=== PATIENT | female | born 1940 | race Caucasian/White ===

== ENCOUNTER 2020-01-04 16:22 | Inpatient (IN) | payer MEDICARE, SELFPAY ==
--- NOTE | ~2020-01-04 | XR_ITS ---
XR chest 1V portable 01/04/2020 17:17 Indication: Weakness, fever and fatigue Procedure: AP portable chest Comparison: 01/08/2016 Findings: Borderline heart size. No focal air space disease, pulmonary edema, pleural effusion or sukhdev pected pneumothorax. No acute osseous abnormality. There is atherosclerosis. Impression: 1: No acute cardiopulmonary disease. Reviewed, dictated and finalized at location A. Impression: 1: No acute cardiopulmonary disease.
--- NOTE | ~2020-01-04 | CT_ITS ---
EXAMINATION: CT abdomen pelvis w con DATE: 01/04/2020 18:16 INDICATION: Left lower quadrant pain, fever and fatigue TECHNIQUE: Computed tomography (CT) of the abdomen and pelvis was performed with 100 cc Omnipaque 350 intravenous contrast. The dose-length product was 531.98 mGy-cm. Automated exposure control and iter ative reconstruction technique were employed. COMPARISON: None. FINDINGS: Left lower lobe atelectasis/scarring. Cardiomegaly. Small left pleural effusion. Small hiat al hernia. There is atherosclerosis of the aorta. No evidence for aneurysm. Gallbladder is not identified. There is prominence of the bile ducts likely attributable to patient a ge and cholecystectomy. The spleen, pancreas, adrenal glands are unremarkable. There is a 2.1 cm righ t renal cyst. There are multiple hypovascular areas in the left kidney, most likely pyelonephritis ve rsus renal cell carcinoma. There is mild urothelial enhancement of the left renal pelvis. There is a 1.6 cm left periaortic lymph node in the upper abdomen. Colonic diverticulosis without evidence for diverticulitis. No bowel obstruction. No free air or free fluid. There is a probable bone marrow donor site left ilium. There is spinal fusion at L2-L5. IMPRESSION: 1. Multiple hypovascular areas in the left kidney, most likely pyelonephritis versus renal cell carci noma. There is mild urothelial enhancement of the left renal pelvis. Clinically correlate. Recommend follow-up CT in 3-4 weeks following appropriate therapy or further evaluation with MRI. 2: Mild upper abdominal lymphadenopathy, likely reactive. 3: Small left pleural effusion. Reviewed, dictated and finalized at location A. IMPRESSION: 1. Multiple hypovascular areas in the left kidney, most likely pyelonephritis v ersus renal cell carcinoma. There is mild urothelial enhancement of the left re nal pelvis. Clinically correlate. Recommend follow-up CT in 3-4 weeks following appropriate therapy or further evaluation with MRI. 2: Mild upper abdominal lymphadenopathy, likely reactive. 3: Small left pleural effusion.
[2020-01-04 16:20] VITALS: BP 166/69; PULSE 94; RESP 20; TEMP 38.3; O2SAT 97
--- NOTE | 2020-01-04 16:42 | PC.NURSE ---
In and out cath preformed. Maintained sterile field. Pt tolerated procedure well. No complications observed or reported.
--- NOTE | 2020-01-04 16:44 | ECG_ITS ---
Measurements Intervals [place] Rate: 87 P: 32 DE: 203 QRS: 16 QRSD: 106 T: 26 QT: 351 QTc: 422 Interpretive Statements SINUS RHYTHM POSSIBLE LEFT ATRIAL ENLARGEMENT BASELINE ARTIFACT- I, III, AVL BORDERLINE ECG Electronically Signed On 01-04-2020 19:38:24 CDT by Dieter Balderas D.O.
--- NOTE | 2020-01-04 16:46 | ED.FEVER ---
HPI - Fever General Chief Complaint: Fever Stated Complaint: Fever, Fatigue Time Seen by Provider: 01/04/20 16:29 Source: patient and family Mode of arrival: ambulatory Limitations: no limitations History of Present Illness HPI Narrative: 79 yo female who presents from home for evaluation of fever for 3 days. Patient states she has had dysuria and lower abdominal pain x 3-4 days . She was started on Cipro by her PCP but she has continued to have fever for 3 days. She has associated nausea, weakness, and anorexia. She also reports left lower abdominal pain radiating into her back. She reports her back pain is not as severe but she has progressive weakness. She denies uri symptoms or cough. Her has told staff patient had a cough. She denies any exposures or sick contacts. MD elicited complaint: fever and weakness Related Data Home Medications Medication Instructions Recorded Confirmed cholecalciferol (vitamin D3) 50 2,000 unit PO DAILY 09/10/19 01/04/20 mcg (2,000 unit) tablet potassium gluconate 595 mg (99 mg) 595 mg PO DAILY 09/10/19 01/04/20 tablet diltiazem HCl [Cardizem LA] 120 mg PO DAILY 01/04/20 01/04/20 docusate sodium [Stool Softener] 300 mg PO HS 01/04/20 01/04/20 famotidine 40 mg PO DAILY 01/04/20 01/04/20 furosemide 20 mg PO DAILY PRN 01/04/20 01/04/20 hydrocodone-acetaminophen 1 tablet PO Q6H PRN 01/04/20 01/04/20 Allergies Allergy/AdvReac Type Severity Reaction Status Date / Time Penicillins Allergy Intermediate Hives Verified 01/04/20 16:28 Sulfa (Sulfonamide Allergy Intermediate Other Verified 01/04/20 16:28 Antibiotics) Review of Systems Review of Systems: All systems reviewed & are unremarkable except as noted in HPI and below Constitutional: Constitutional: Reports fatigue and Reports fever(s) ENT: Denies nasal congestion and Denies sore throat Cardiovascular: Cardiovascular: Denies chest pain Respiratory: Respiratory: Denies chest congestion, Denies cough and Denies dyspnea Gastrointestinal: Gastrointestinal: Reports abdominal pain, Reports nausea and Denies vomiting Genitourinary: Genitourinary: Reports nocturia, Reports dysuria and Reports flank pain Musculoskeletal: Musculoskeletal: Reports back pain (chronic) [facility], [facility] Past Medical History Medical History (Updated 01/05/20 @ 00:55 by Shira Medina MD) Chronic back pain Diverticulitis Essential hypertension IFG (impaired fasting glucose) RLS (restless legs syndrome) Surgical History Surgical History (Updated 01/04/20 @ 23:08 by Lily Cheney NP) H/O foot surgery bilat H/O lateral meniscus repair of right knee H/O rectal polypectomy several H/O: hysterectomy History of back surgery titanium screws in her back in 2001 and 2003 History of bladder suspension procedure Hx of appendectomy Hx of cholecystectomy Total knee replacement status left Family History Family History Mother Hypertension Cerebrovascular accident Family history of diabetes mellitus in first degree relative Father Hypertension Family history of diabetes mellitus in first degree relative Family history of congestive heart failure Sibling Hypertension Asthma Family history of diabetes mellitus in first degree relative Social History Social History (Updated 01/04/20 @ 23:10 by Lily Cheney NP) Social History: she is she lives with her who is the durable power printer assistant for healthcare. The patient desires to be a full code. 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 She is a lifelong nonsmoker. No alcohol or illicit drugs. Smoking status: Never smoker Second hand tobacco smoke exposure: No Alcohol intake: current Drinks per week: 1 Substance use: never Substance use type: does not use Living arrangements: with family Occupation/Education: retired Gender identity (if verbalized by the patient):
[2020-01-04] MEDS: SODIUM CHLORIDE 0.9% IV 1,000 ML 999 ML IV CONT (16:55)
[2020-01-04] MEDS: ONDANSETRON INJ 4 MG/2 ML VIAL IV PUSH ×2 (17:03→22:00)
[2020-01-04 17:12] LABS: Basophils Percent Auto 0.3 % (0.2-1.2); Hematocrit 38.1 % (37.0-47.0); Hemoglobin 12.5 g/dL (12.0-15.0); Immature Granulocyte Absolute 0.04 K/mm3 (0.00-0.031); Immature Granulocyte Percent A 0.4 % (0-0.5); Lymphocytes Absolute Auto 0.27 K/mm3 (0.9-3.2); Lymphocytes Percent Auto 2.9 % (18.3-44.2); Mean Corpuscular HGB Conc 32.8 g/dl (32-36); Mean Corpuscular Hemoglobin 32.6 pg (26-34); Mean Corpuscular Volume 99.2 fl (80-100); Mean Platelet Volume 8.8 fl (7.4-10.4); Monocytes Absolute Auto 0.4 K/mm3 (0.1-0.6); Monocytes Percent Auto 4.6 % (2.6-8.5); Neutrophils Absolute Auto 8.5 K/mm3 (1.3-6.7); Neutrophils Percent Auto 91.8 % (45.5-73.1); Platelet Count Result 155 k/mm3 (150-375); Red Blood Count 3.84 M/mm3 (4.2-5.4); Red Cell Distribution Width 13.1 % (11.5-14.5); White Blood Count 9.3 K/mm3 (4.5-10.0)
[2020-01-04 17:16] LABS: Add Urine Microscopic? YES; Appearance Urine Cloudy (Clear); Bacteria Urine 4+ /hpf; Bilirubin Urine Negative (Negative); Blood Urine 1+ (Negative); Color Urine Amber (Yellow); Glucose Urine UA Negative (Negative); Ketones Urine 1+ mg/dL (Negative); Leukocyte Esterase Ur 2+ LEU/UL (Negative); Mucus Urine Rare /lpf; Nitrate Urine Positive (Negative); Protein Urine 2+ mg/dL (Negative); Specific Grav Ur 1.025 (1.001-1.035); Squamous Epithelial Cell Urine Occasional /hpf (Few); WBC Clumps Urine Present /HPF; WBC Urine >75 /hpf
[2020-01-04 17:20] VITALS: BP 153/56; PULSE 84; RESP 18; O2SAT 97
[2020-01-04 17:23] LABS: INR 1.3; Prothrombin Time 15.6 Seconds (11.1-14.7)
[2020-01-04 17:24] VITALS: TEMP 37.3
[2020-01-04 17:24] LABS: Partial Thromboplastin Time 33.2 SECONDS (22.3-36.8)
[2020-01-04 17:30] LABS: Alanine Aminotransferase 33 U/L (4-35); Albumin Level 3.5 g/dL (3.5-5.1); Alkaline Phosphatase 109 U/L (38-126); Aspartate Amino Transferase 45 U/L (14-36); Blood Urea Nitrogen 20 mg/dL (7-17); Calcium 7.9 mg/dL (8.4-10.2); Carbon Dioxide 27 mmol/L (22-30); Chloride 101 mmol/L (98-107); Estimated Glomerular Filt Rate > 60; Glucose 115 mg/dL (65-105); Potassium 3.9 mmol/L (3.4-5.0); Sodium 135 mmol/L (137-145)
[2020-01-04 17:53] LABS: CRP 32.4 mg/dL (<1.0)
[2020-01-04 18:59] VITALS: BP 136/67; PULSE 84; RESP 18; O2SAT 96
[2020-01-04 19:57] VITALS: BP 147/93; PULSE 100; RESP 20; TEMP 36.7; O2SAT 96
[2020-01-04 20:21] VITALS: BMI 29.6
[2020-01-04 20:26] VITALS: BP 154/89; PULSE 99; RESP 20; TEMP 37.4; O2SAT 94
[2020-01-04] MEDS: LACTATED RINGERS 1,000 ML 125 ML IV CONT (20:27)
--- NOTE | 2020-01-04 21:38 | ADMGEN ---
This patient, Shania Walden, was admitted to Medical Room 346-01. Patient/family oriented to hospital policies and general routines including ID bracelet, bed and alarms, visiting hours, pain management, procedures, bathroom and other care routines, personal items, smoking policy, room service/diet, and visiting hours. Valuables list has been completed. Information on how to activate the Rapid Response Team has been discussed. Patient/Family are encouraged to report perceived risks to care and to ask questions if they do not understand what they are told or what they should do.
--- NOTE | 2020-01-04 22:27 | PM.IMHP ---
H&P: HPI History of Present Illness Chief complaint: Acute yelonephritis Narrative: Shania Walden is a 79 year old female Who came to the emergency due to fever chills body aches nausea vomiting for at least 3 days now. The patient tried [place] 0 for the urinary burning in a did not help her. Patient was started on Cipro by her PCP and she still continued to have fevers. She has not been outside the house or been exposed to covid 19. She has been staying at home and isolating herself. The patient stated that at 1st her temperature was 99.9? and that it was 100 today. She said that her has been monitoring her fever. She does have body aches and was nauseated. She feels miserable. She has had no cough. Her fever was 101 here. Her influenza was negative. Review of Systems Review of Systems: All systems reviewed & are unremarkable except as noted in HPI and below Constitutional: Constitutional: Reports as per HPI and Reports no additional constitutional complaints Eyes: Eyes: Reports as per HPI and Reports no additional eye complaints ENT: Reports system reviewed and no additional complaints, except as documented and Reports Normal hearing present Cardiovascular: Cardiovascular: Reports no additional cardiovascular complaints Respiratory: Respiratory: Reports no additional respiratory complaints and Reports no additional respiratory complaints Gastrointestinal: Gastrointestinal: Reports as per HPI and Reports no additional gastrointestinal complaints Musculoskeletal: Musculoskeletal: Reports no additional musculoskeletal complaints Integumentary/Breasts: Skin/Breast: Reports system reviewed and no additional complaints, except as docu and Reports as per HPI Neurologic: Reports system reviewed and no additional complaints, except as documented, Reports as per HPI and Reports Normal hearing present Psychiatric: Psychiatric: Reports no additional psychiatric complaints and Reports as per HPI Endocrine: Endocrine: Reports no additional endocrine complaints Hematologic/Lymphatic: Hematologic/Lymphatic: Reports no additional hematologic/lymphatic complaints Allergic/Immunologic: Allergic/Immunologic: Reports no additional allergic/immunologic complaints [facility] Past Medical History Medical History (Updated 01/04/20 @ 23:15 by Lily Cheney NP) Chronic back pain Diverticulitis Essential hypertension IFG (impaired fasting glucose) RLS (restless legs syndrome) Surgical History Surgical History (Updated 01/04/20 @ 23:08 by Lily Cheney NP) H/O foot surgery bilat H/O lateral meniscus repair of right knee H/O rectal polypectomy several H/O: hysterectomy History of back surgery titanium screws in her back in 2001 and 2003 History of bladder suspension procedure Hx of appendectomy Hx of cholecystectomy Total knee replacement status left Family History Family History Mother Hypertension Cerebrovascular accident Family history of diabetes mellitus in first degree relative Father Hypertension Family history of diabetes mellitus in first degree relative Family history of congestive heart failure Sibling Hypertension Asthma Family history of diabetes mellitus in first degree relative Social History Social History (Updated 01/04/20 @ 23:10 by Lily Cheney NP) Social History: she is she lives with her who is the durable power privacy attorney for healthcare. The patient desires to be a full code. 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 She is a lifelong nonsmoker. No alcohol or illicit drugs. Smoking status: Never smoker Second hand tobacco smoke exposure: No Alcohol intake: current Drinks per week: 1 Substance use: never Substance use type: does not use Living arrangements: with family Occupation/Education: retired Gender identity (if verbalized by the patient): Female Spiritual care con
[2020-01-04] MEDS: DOCUSATE SODIUM 100 MG CAPSULE 300 MG PO (23:24)
[2020-01-05] MEDS: ONDANSETRON INJ 4 MG/2 ML VIAL IV PUSH ×3 (03:26→20:20)
[2020-01-05] MEDS: LACTATED RINGERS 1,000 ML 125 ML IV CONT ×2 (04:53→12:33)
[2020-01-05 05:15] LABS: Basophils Percent Auto 0.3 % (0.2-1.2); Eosinophils Percent Auto 0.5 % (0-4.4); Hematocrit 33.7 % (37.0-47.0); Hemoglobin 10.8 g/dL (12.0-15.0); Immature Granulocyte Absolute 0.04 K/mm3 (0.00-0.031); Immature Granulocyte Percent A 0.6 % (0-0.5); Lymphocytes Absolute Auto 0.31 K/mm3 (0.9-3.2); Lymphocytes Percent Auto 4.8 % (18.3-44.2); Mean Corpuscular Hemoglobin 32.4 pg (26-34); Mean Corpuscular Volume 101.2 fl (80-100); Mean Platelet Volume 9.1 fl (7.4-10.4); Monocytes Absolute Auto 0.6 K/mm3 (0.1-0.6); Monocytes Percent Auto 8.5 % (2.6-8.5); Neutrophils Absolute Auto 5.6 K/mm3 (1.3-6.7); Neutrophils Percent Auto 85.3 % (45.5-73.1); Platelet Count Result 139 k/mm3 (150-375); Red Blood Count 3.33 M/mm3 (4.2-5.4); Red Cell Distribution Width 13.2 % (11.5-14.5); White Blood Count 6.5 K/mm3 (4.5-10.0)
[2020-01-05 05:23] VITALS: BP 147/58; PULSE 76; RESP 18; TEMP 36.8; O2SAT 100
[2020-01-05 06:03] LABS: Alanine Aminotransferase 57 U/L (4-35); Albumin Level 2.8 g/dL (3.5-5.1); Alkaline Phosphatase 99 U/L (38-126); Aspartate Amino Transferase 79 U/L (14-36); Bilirubin,Total 0.5 mg/dL (0.2-1.3); Blood Urea Nitrogen 23 mg/dL (7-17); Calcium 7.4 mg/dL (8.4-10.2); Carbon Dioxide 25 mmol/L (22-30); Chloride 103 mmol/L (98-107); Estimated CRCL calculation 31 ml/min; Estimated Glomerular Filt Rate 40; Glucose 128 mg/dL (65-105); Potassium 3.5 mmol/L (3.4-5.0); Sodium 135 mmol/L (137-145)
[2020-01-05] MEDS: CHOLECALCIFEROL 1,000 UNIT TABLET 2000 UNITS PO (08:23)
[2020-01-05] MEDS: lisinopriL 20 MG TABLET 40 MG PO (08:24)
[2020-01-05] MEDS: FAMOTIDINE 20 MG TABLET 40 MG PO (08:26)
--- NOTE | 2020-01-05 13:03 | PM.IMPN ---
Progress Note: A&P Assessment and Plan (1) Sepsis: Code(s): A41.9 - Sepsis, unspecified organism Status: Acute Assessment and Plan: The patient met SIRS criteria at admission with tachycardia and fever of 101F. The suspected source is pyelonephritis. Blood cultures reveal gram negative bacilli in the anaerobic bottle of both cultures. Continue IV ceftriaxone, will increase dose to 2g Q24hr due to bacteremia Continue IV fluids - the pt has crackles at the lung bases so I will decrease the rate to 75 cc/hr and monitor volume status closely Await final blood cultures (2) Pyelonephritis: Code(s): N12 - Tubulo-interstitial nephritis, not specified as acute or chronic Status: Acute Assessment and Plan: The pt reports fever, chills, dysuria, and left sided abdominal pain. She has CVA tenderness. UA was consistent with UTI. CT abd/pelvis revealed hypovascular areas in the left kidney and mild urothelial enhancement of the left renal pelvis. Her clinical picture suggests pyelonephritis. Urine culture is pending. Blood cultures reveal gram negative bacilli. Continue IV ceftriaxone Continue antiemetics Continue IV fluids Monitor vitals Trend labs (3) Acute kidney injury: Code(s): N17.9 - Acute kidney failure, unspecified Status: Acute Assessment and Plan: Cr at presentation was 0.9 and BUN 20. Cr today is 1.3 and BUN 23. This may be due to her acute infection. The pt is on lasix 20mg PO PRN. Hold lasix and lisinopril for now Renally dose medications Avoid nephrotoxic agents Continue IV fluids Trend Cr daily (4) RLS (restless legs syndrome): Code(s): G25.81 - Restless legs syndrome Status: Chronic (5) Essential hypertension: Code(s): I10 - Essential (primary) hypertension Status: Chronic Assessment and Plan: Continue cardizem Will hold lisinopril for now due to LALITHA (6) Chronic back pain: Code(s): M54.9 - Dorsalgia, unspecified; G89.29 - Other chronic pain Status: Acute Assessment and Plan: Continue norco (7) DVT prophylaxis: Code(s): Z29.9 - Encounter for prophylactic measures, unspecified Status: Acute Assessment and Plan: Continue SCDs Subjective Date/time seen: 01/05/20 13:03 Interval history: Mrs. Walden is a 79 y.o. female who is seen and examined at bedside in follow-up for pyelonephritis. She reports dysuria, increased urinary frequency which is improving, and left sided abdominal pain. She reports significant nausea. She was only able to eat a few bites of lunch. She denies vomiting today. Her last BM was yesterday. She reports chills this AM. She denies SOB, chest pain, and cough. She denies lightheadedness and dizziness. She reports mild frontal headache. Review of Systems Review of Systems: All systems reviewed & are unremarkable except as noted in HPI and below Exam Narrative: Exam Narrative: General: Well-developed, cooperative, acutely-ill appearing 79 y.o. female who appears her stated age lying in bed in no acute distress. HEENT: Normocephalic and atraumatic. Conjunctivae and lids normal. PERRL. EOMI. Mucous membranes moist. Posterior pharynx normal. Neck: Supple. No lymphadenopathy or masses. Cardiac: Regular rate and rhythm. S1 and S2 normal. Lungs: Normal respiratory effort. No accessory muscle use. Lungs have crackles at the bases. Abdomen: Bowel sounds active. Abdomen is soft and non-distended. Pt has LUQ tenderness. Left CVA tenderness present. Musculoskeletal: Muscle and tone WNL. ROM within normal limits. Extremities: Scant lower extremity edema. Palpable DP and PT bilaterally. Neurological: Alert and oriented x3. No focal neurological deficits noted. Speech is clear. Skin: Warm and dry. No lesions or eruptions. Psychiatric: Judgment and insight intact. Mood and affect normal. Objective Data Vital Signs Vital S
[2020-01-05] MEDS: PROMETHAZINE HCL 6.25 MG TABLET PO ×2 (13:57→20:17)
[2020-01-05 14:00] VITALS: BP 172/64; PULSE 64; RESP 18; TEMP 37; O2SAT 96
[2020-01-05 20:37] VITALS: BP 186/55; PULSE 57; RESP 17; TEMP 36.4; O2SAT 100
[2020-01-05] MEDS: MORPHINE SULFATE 4 MG/ML INJ IV PUSH (22:49)
[2020-01-06] MEDS: PROMETHAZINE HCL 6.25 MG TABLET PO ×4 (00:54→16:08)
[2020-01-06] MEDS: ONDANSETRON INJ 4 MG/2 ML VIAL IV PUSH ×3 (00:54→11:27)
[2020-01-06] MEDS: MORPHINE SULFATE 4 MG/ML INJ IV PUSH ×3 (00:59→06:12)
[2020-01-06] MEDS: LACTATED RINGERS 1,000 ML 75 ML IV CONT (01:04)
[2020-01-06 05:34] VITALS: BP 170/59; PULSE 54; RESP 14; TEMP 36.3; O2SAT 96
[2020-01-06 06:12] LABS: Basophils Percent Auto 0.2 % (0.2-1.2); Eosinophils Absolute Auto 0.1 K/mm3 (0-0.3); Eosinophils Percent Auto 1.2 % (0-4.4); Hematocrit 31.6 % (37.0-47.0); Hemoglobin 10.4 g/dL (12.0-15.0); Immature Granulocyte Absolute 0.01 K/mm3 (0.00-0.031); Immature Granulocyte Percent A 0.2 % (0-0.5); Lymphocytes Absolute Auto 1.17 K/mm3 (0.9-3.2); Lymphocytes Percent Auto 23.3 % (18.3-44.2); Mean Corpuscular HGB Conc 32.9 g/dl (32-36); Mean Corpuscular Hemoglobin 32.6 pg (26-34); Mean Corpuscular Volume 99.1 fl (80-100); Mean Platelet Volume 9.3 fl (7.4-10.4); Monocytes Absolute Auto 0.6 K/mm3 (0.1-0.6); Monocytes Percent Auto 12.5 % (2.6-8.5); Neutrophils Absolute Auto 3.2 K/mm3 (1.3-6.7); Neutrophils Percent Auto 62.6 % (45.5-73.1); Platelet Count Result 145 k/mm3 (150-375); Red Blood Count 3.19 M/mm3 (4.2-5.4); Red Cell Distribution Width 13.1 % (11.5-14.5)
[2020-01-06 06:18] LABS: Alanine Aminotransferase 47 U/L (4-35); Albumin Level 2.6 g/dL (3.5-5.1); Alkaline Phosphatase 90 U/L (38-126); Aspartate Amino Transferase 56 U/L (14-36); Bilirubin,Total 0.3 mg/dL (0.2-1.3); Blood Urea Nitrogen 14 mg/dL (7-17); Calcium 7.5 mg/dL (8.4-10.2); Carbon Dioxide 28 mmol/L (22-30); Chloride 102 mmol/L (98-107); Estimated CRCL calculation 49 ml/min; Estimated Glomerular Filt Rate > 60; Glucose 96 mg/dL (65-105); Potassium 3.3 mmol/L (3.4-5.0); Sodium 134 mmol/L (137-145)
[2020-01-06 06:26] LABS: CRP 20.4 mg/dL (<1.0)
[2020-01-06 08:28] VITALS: PULSE 72; RESP 16; O2SAT 96
[2020-01-06] MEDS: CHOLECALCIFEROL 1,000 UNIT TABLET 2000 UNITS PO (08:28)
[2020-01-06] MEDS: POTASSIUM CHLORIDE 20 MEQ TABLET.ER PO (08:42)
[2020-01-06] MEDS: FAMOTIDINE 20 MG TABLET 40 MG PO (08:49)
--- NOTE | 2020-01-06 12:40 | PM.IMPN ---
Progress Note: A&P Assessment and Plan (1) Bacteremia due to Escherichia coli: Code(s): R78.81 - Bacteremia; B96.20 - Unspecified Escherichia coli [E. coli] as the cause of diseases classified elsewhere Status: Acute Assessment and Plan: Blood cultures reveal E. coli. Susceptibilities are pending for blood cultures. Urine culture reveals E. coli which is susceptible to ceftriaxone. Ceftriaxone was increased to 2g due to bacteremia. Continue IV ceftriaxone which was initiated 01/03. She will need at least 5 days of IV abx therapy and 14 days of abx therapy. Await final blood culture susceptibility Will repeat blood cultures to ensure resolution (2) Sepsis: Qualifiers: Sepsis type: Escherichia coli Code(s): A41.9 - Sepsis, unspecified organism Status: Acute Assessment and Plan: The patient met SIRS criteria at admission with tachycardia and fever of 101F. The pt has complicated pyelonephritis with E. coli bacteremia. The urine culture susceptibility report shows that the E. coli is susceptible to ceftriaxone. Blood culture susceptibility is pending. Continue IV ceftriaxone 2g Q24hr. Ceftriaxone was initiated 01/03 Continue gentle IV fluids Await final blood culture sensitivities and repeat blood cultures (3) Pyelonephritis: Code(s): N12 - Tubulo-interstitial nephritis, not specified as acute or chronic Status: Acute Assessment and Plan: Urine culture revealed E. coli susceptible to ceftriaxone and blood cultures reveal E. coli. The blood culture susceptibilities are pending. Continue IV ceftriaxone Continue antiemetics Continue IV fluids Monitor vitals Trend labs (4) Acute kidney injury: Code(s): N17.9 - Acute kidney failure, unspecified Status: Acute Assessment and Plan: Cr at presentation was 0.9 and BUN 20. Yesterday, Cr increased to 1.3. This was likely due to her acute infection. Cr is trending down today at 0.8. Renally dose medications Avoid nephrotoxic agents Continue gentle IV fluids. Will decrease rate to 60 cc/hr. Discontinue fluids once pt is tolerating PO intake well Trend Cr daily (5) RLS (restless legs syndrome): Code(s): G25.81 - Restless legs syndrome Status: Chronic (6) Essential hypertension: Code(s): I10 - Essential (primary) hypertension Status: Chronic Assessment and Plan: BP was elevated overnight and this AM. Resume lisinopril Continue cardizem Continue to monitor (7) Chronic back pain: Code(s): M54.9 - Dorsalgia, unspecified; G89.29 - Other chronic pain Status: Acute Assessment and Plan: Continue norco (8) DVT prophylaxis: Code(s): Z29.9 - Encounter for prophylactic measures, unspecified Status: Acute Assessment and Plan: Continue SCDs (9) Transaminitis: Code(s): R74.0 - Nonspecific elevation of levels of transaminase and lactic acid dehydrogenase [LDH] Status: Acute Assessment and Plan: AST 45, ALT 33, and ALP 109 at presentation. LFTs increased / and are now trending down. I suspect this is due to her acute infection. Continue IV abx and follow trend. Consider additional workup if transaminitis persists despite abx therapy. (10) Hypokalemia: Code(s): E87.6 - Hypokalemia Status: Acute Assessment and Plan: The pt is on potassium supplementation prior to admission. We do not have potassium gluconate on formulary. Potassium was 3.3 today. Begin potassium chloride 20mEq PO today Continue to monitor Subjective Date/time seen: 01/06/20 12:40 Interval history: Mrs. Walden is a 79 y.o. female who is seen in follow-up for the treatment of pyelonephritis with E. coli bacteremia. She reports that she is feeling much better today. She denies nausea but is still taking antiemetics. She reports that dysuria has almost resolved
[2020-01-06 14:00] VITALS: BP 154/60; PULSE 91; RESP 16; TEMP 36.4; O2SAT 95
[2020-01-06] MEDS: LACTATED RINGERS 1,000 ML 60 ML IV CONT (14:14)
[2020-01-06] MEDS: DOCUSATE SODIUM 100 MG CAPSULE 300 MG PO (20:07)
[2020-01-06 20:10] VITALS: BP 172/60; PULSE 70; RESP 16; TEMP 36.7; O2SAT 96
[2020-01-07 04:01] VITALS: PULSE 60; RESP 16; TEMP 36.5; O2SAT 96
[2020-01-07 04:10] VITALS: BP 212/93
[2020-01-07] MEDS: CALCIUM CARBONATE (TUMS) 500 MG (200 MG ELEMENTAL) PO (04:15)
[2020-01-07] MEDS: PROMETHAZINE HCL 6.25 MG TABLET PO (04:16)
[2020-01-07] MEDS: hydrALAZINE HCL 20 MG/ML VIAL 10 MG IV PUSH (04:22)
[2020-01-07 05:28] VITALS: BP 183/60; PULSE 71
[2020-01-07 05:50] LABS: Basophils Percent Auto 0.3 % (0.2-1.2); Eosinophils Absolute Auto 0.2 K/mm3 (0-0.3); Eosinophils Percent Auto 3.6 % (0-4.4); Hematocrit 34.6 % (37.0-47.0); Hemoglobin 11.6 g/dL (12.0-15.0); Immature Granulocyte Absolute 0.04 K/mm3 (0.00-0.031); Immature Granulocyte Percent A 0.7 % (0-0.5); Lymphocytes Absolute Auto 1.37 K/mm3 (0.9-3.2); Lymphocytes Percent Auto 23.3 % (18.3-44.2); Mean Corpuscular HGB Conc 33.5 g/dl (32-36); Mean Corpuscular Hemoglobin 32.8 pg (26-34); Mean Corpuscular Volume 97.7 fl (80-100); Mean Platelet Volume 8.9 fl (7.4-10.4); Monocytes Absolute Auto 0.8 K/mm3 (0.1-0.6); Monocytes Percent Auto 13.6 % (2.6-8.5); Neutrophils Absolute Auto 3.4 K/mm3 (1.3-6.7); Neutrophils Percent Auto 58.5 % (45.5-73.1); Platelet Count Result 164 k/mm3 (150-375); Red Blood Count 3.54 M/mm3 (4.2-5.4); White Blood Count 5.9 K/mm3 (4.5-10.0)
[2020-01-07 06:07] LABS: Alanine Aminotransferase 53 U/L (4-35); Albumin Level 3.1 g/dL (3.5-5.1); Alkaline Phosphatase 103 U/L (38-126); Aspartate Amino Transferase 61 U/L (14-36); Bilirubin,Total 0.5 mg/dL (0.2-1.3); Blood Urea Nitrogen 13 mg/dL (7-17); Calcium 8.1 mg/dL (8.4-10.2); Carbon Dioxide 31 mmol/L (22-30); Chloride 99 mmol/L (98-107); Estimated CRCL calculation 49 ml/min; Estimated Glomerular Filt Rate > 60; Glucose 116 mg/dL (65-105); Magnesium 1.7 mg/dL (1.6-2.3); Potassium 3.3 mmol/L (3.4-5.0); Sodium 135 mmol/L (137-145)
[2020-01-07 08:00] VITALS: BP 180/55; PULSE 78; RESP 20; TEMP 36.5; O2SAT 98
[2020-01-07] MEDS: LACTATED RINGERS 1,000 ML 60 ML IV CONT (08:17)
[2020-01-07] MEDS: CHOLECALCIFEROL 1,000 UNIT TABLET 2000 UNITS PO (08:18)
[2020-01-07] MEDS: FAMOTIDINE 20 MG TABLET 40 MG PO (08:20)
[2020-01-07] MEDS: POTASSIUM CHLORIDE 20 MEQ TABLET.ER PO (08:20)
[2020-01-07 14:00] VITALS: BP 177/46; PULSE 57; RESP 16; TEMP 36.7; O2SAT 97
--- NOTE | 2020-01-07 14:50 | PM.IMPN ---
Progress Note: A&P Assessment and Plan (1) Bacteremia due to Escherichia coli: Code(s): R78.81 - Bacteremia; B96.20 - Unspecified Escherichia coli [E. coli] as the cause of diseases classified elsewhere Status: Acute Assessment and Plan: Blood cultures reveal E. coli. Susceptibilities are pending for blood cultures. Urine culture reveals E. coli which is susceptible to ceftriaxone. Ceftriaxone was increased to 2g due to bacteremia. WBC wnl at 5.9. Continue IV ceftriaxone which was initiated 01/03. She will need at least 5 days of IV abx therapy and 14 days of total abx therapy. Await final blood culture susceptibility Repeat blood cultures to ensure resolution (2) Sepsis: Qualifiers: Sepsis type: Escherichia coli Sepsis acute organ dysfunction status: without acute organ dysfunction Qualified Code(s): A41.51 - Sepsis due to Escherichia coli [E. coli] Code(s): A41.9 - Sepsis, unspecified organism Status: Acute Assessment and Plan: The patient met SIRS criteria at admission with tachycardia and fever of 101F. The pt has complicated pyelonephritis with E. coli bacteremia. The urine culture susceptibility report shows that the E. coli is susceptible to ceftriaxone. Blood culture susceptibility is pending. Lactic wnl at presentation. Continue IV ceftriaxone 2g Q24hr. Ceftriaxone was initiated 01/03 Discontinue IV fluids as patient is edematous and tolerating oral intake. Will continue to monitor volume status closely. Await final blood culture sensitivities and repeat blood cultures (3) Pyelonephritis: Code(s): N12 - Tubulo-interstitial nephritis, not specified as acute or chronic Status: Acute Assessment and Plan: Urine culture revealed E. coli susceptible to ceftriaxone and blood cultures reveal E. coli. The blood culture susceptibilities are pending. Continue IV ceftriaxone Continue antiemetics Stop IV fluids as patient is tolerating oral intake. Will continue to monitor fluid status Monitor vitals (4) Acute kidney injury: Code(s): N17.9 - Acute kidney failure, unspecified Status: Acute Assessment and Plan: Cr at presentation was 0.9 and BUN 20. On 01/04, Cr increased to 1.3, likely due to her acute infection. Cr is trending down and wnl at 0.8 today. Renally dose medications Avoid nephrotoxic agents Will discontinue IV fluids Trend Cr daily (5) Essential hypertension: Code(s): I10 - Essential (primary) hypertension Status: Chronic Assessment and Plan: BP evaluated today and elevated at 183/60. She has had multiple elevated blood pressures. Continue lisinopril Continue cardizem Consider titrating up or additional antihypertensive agent if BP remain poorly controlled. Continue to monitor (6) Chronic back pain: Qualifiers: Back pain location: low back pain Back pain laterality: unspecified Sciatica presence: unspecified whether sciatica present Qualified Code(s): M54.5 - Low back pain; G89.29 - Other chronic pain Code(s): M54.9 - Dorsalgia, unspecified; G89.29 - Other chronic pain Status: Acute Assessment and Plan: Patient has history of low back pain and back surgery. She sees pain management for back pain. She reports her pain is well controlled presently. Continue norco Discontinue prn morphine (7) Transaminitis: Code(s): R74.0 - Nonspecific elevation of levels of transaminase and lactic acid dehydrogenase [LDH] Status: Acute Assessment and Plan: AST 45, ALT 33, and ALP 109 at presentation. LFTs increased /12 and remain mildly elevated. May be related to acute infection. Total bilirubin is within normal limits Continue IV abx and follow trend. Consider additional workup if transaminitis persists despite abx therapy. (8) Hypokalemia: Code(s): E87.6 - Hypokalemia Status: Acute Assessme
[2020-01-07 17:12] LABS: Lipase 69 U/L (23-300)
[2020-01-07 21:44] VITALS: BP 175/59; PULSE 65; RESP 18; TEMP 36.6; O2SAT 92
[2020-01-07] MEDS: lisinopriL 20 MG TABLET 40 MG PO (22:25)
[2020-01-08 05:14] VITALS: BP 178/62; PULSE 72; RESP 16; TEMP 36.5; O2SAT 97
[2020-01-08 06:02] LABS: Hematocrit 31.9 % (37.0-47.0); Hemoglobin 10.8 g/dL (12.0-15.0); Mean Corpuscular HGB Conc 33.9 g/dl (32-36); Mean Corpuscular Hemoglobin 32.9 pg (26-34); Mean Corpuscular Volume 97.3 fl (80-100); Mean Platelet Volume 9.4 fl (7.4-10.4); Platelet Count Result 183 k/mm3 (150-375); Red Blood Count 3.28 M/mm3 (4.2-5.4); Red Cell Distribution Width 12.9 % (11.5-14.5); White Blood Count 5.9 K/mm3 (4.5-10.0)
[2020-01-08 06:03] LABS: Blood Urea Nitrogen 8 mg/dL (7-17); Carbon Dioxide 34 mmol/L (22-30); Chloride 100 mmol/L (98-107); Estimated CRCL calculation 56 ml/min; Estimated Glomerular Filt Rate > 60; Glucose 102 mg/dL (65-105); Potassium 3.1 mmol/L (3.4-5.0); Sodium 134 mmol/L (137-145)
[2020-01-08] MEDS: CHOLECALCIFEROL 1,000 UNIT TABLET 2000 UNITS PO (08:34)
[2020-01-08 08:35] VITALS: PULSE 76; RESP 16; O2SAT 97
[2020-01-08] MEDS: PROMETHAZINE HCL 6.25 MG TABLET PO (08:35)
[2020-01-08] MEDS: POTASSIUM CHLORIDE 20 MEQ TABLET.ER PO (08:35)
[2020-01-08] MEDS: FAMOTIDINE 20 MG TABLET 40 MG PO (08:41)
[2020-01-08 11:00] VITALS: TEMP 36.5
--- NOTE | 2020-01-08 11:19 | PM.IMPN ---
Progress Note: A&P Assessment and Plan (1) Bacteremia due to Escherichia coli: Code(s): R78.81 - Bacteremia; B96.20 - Unspecified Escherichia coli [E. coli] as the cause of diseases classified elsewhere Status: Acute Assessment and Plan: Blood cultures reveal E. coli with susceptibility to Ceftriaxone. Urine culture also reveals E. coli which is susceptible to ceftriaxone. Ceftriaxone was increased to 2g due to bacteremia on 01/05/20. WBC wnl at 5.9. Repeat blood cultures taken 01/07/20 show NGTD. Continue IV ceftriaxone which was initiated 01/03. She will receive final IV dose of Ceftriaxone tomorrow to complete 5 days of 2 g Ceftriaxone. She will then continue oral antibiotics for a total of 14 days. Her last day of antibiotics will be 01/17/20. (2) Sepsis: Qualifiers: Sepsis acute organ dysfunction status: without acute organ dysfunction Sepsis type: Escherichia coli Qualified Code(s): A41.51 - Sepsis due to Escherichia coli [E. coli] Code(s): A41.9 - Sepsis, unspecified organism Status: Acute Assessment and Plan: The patient met SIRS criteria at admission with tachycardia and fever of 101F. The pt has complicated pyelonephritis with E. coli bacteremia. The urine and blood culture susceptibility report shows that the E. coli is susceptible to ceftriaxone. Lactic wnl at presentation. Repeat blood cultures show NGTD. Continue IV ceftriaxone 2g Q24hr. Stop tomorrow to complete 5 days and transition to oral abx. Await final blood culture report of repeat cultures from 01/06. (3) Pyelonephritis: Code(s): N12 - Tubulo-interstitial nephritis, not specified as acute or chronic Status: Acute Assessment and Plan: Urine culture revealed E. coli susceptible to ceftriaxone and blood cultures reveal E. coli. Pyelonephritis is the cause of bacteremia. Patient does not have CVA tenderness today and no longer has urinary symptoms. Continue IV ceftriaxone. Discontinue tomorrow. Continue antiemetics prn. Continue to monitor vitals (4) Acute kidney injury: Code(s): N17.9 - Acute kidney failure, unspecified Status: Acute Assessment and Plan: Cr at presentation was 0.9 and BUN 20. On 01/04, Cr increased to 1.3, likely due to her acute infection. Cr is trending down and wnl at 0.7 today. Renally dose medications Avoid nephrotoxic agents Trend Cr daily (5) Essential hypertension: Code(s): I10 - Essential (primary) hypertension Status: Chronic Assessment and Plan: BP evaluated today and elevated at 178/62. She has had multiple elevated blood pressure readings with highest 212/93 on 01/06 but appears to be improving. They are still mildly elevated but acceptable. Continue lisinopril Continue cardizem Will not add additional antihypertensive or adjust dosage at this time as BP appears to be improving. Continue to monitor (6) Chronic back pain: Qualifiers: Back pain laterality: unspecified Back pain location: low back pain Sciatica presence: unspecified whether sciatica present Qualified Code(s): M54.5 - Low back pain; G89.29 - Other chronic pain Code(s): M54.9 - Dorsalgia, unspecified; G89.29 - Other chronic pain Status: Acute Assessment and Plan: Patient has history of low back pain and back surgery. She sees pain management for back pain. She reports her pain is well controlled presently. Continue home pain regimen of [place] Continue colace prn given narcotic use (7) Transaminitis: Code(s): R74.0 - Nonspecific elevation of levels of transaminase and lactic acid dehydrogenase [LDH] Status: Acute Assessment and Plan: AST 45, ALT 33, and ALP 109 at presentation. LFTs increased 01/04 and remain mildly elevated. May be related to acute infection. Total bilirubin is within normal limits Continue IV abx and continue to trend LFTs. Consider additional brianne
[2020-01-08] MEDS: lisinopriL 20 MG TABLET 40 MG PO (11:21)
[2020-01-08 14:00] VITALS: BP 145/54; PULSE 67; RESP 16; TEMP 36.8; O2SAT 96
[2020-01-08 15:02] LABS: Potassium 3.4 mmol/L (3.4-5.0)
[2020-01-08 20:00] VITALS: PULSE 66; RESP 20; O2SAT 95
[2020-01-08 22:00] VITALS: BP 171/68; PULSE 66; RESP 20; TEMP 37.1; O2SAT 95
[2020-01-09 05:57] LABS: Basophils Percent Auto 0.4 % (0.2-1.2); Eosinophils Absolute Auto 0.4 K/mm3 (0-0.3); Eosinophils Percent Auto 5.8 % (0-4.4); Hematocrit 30.3 % (37.0-47.0); Hemoglobin 10.2 g/dL (12.0-15.0); Immature Granulocyte Absolute 0.03 K/mm3 (0.00-0.031); Immature Granulocyte Percent A 0.4 % (0-0.5); Lymphocytes Absolute Auto 2.11 K/mm3 (0.9-3.2); Lymphocytes Percent Auto 28.5 % (18.3-44.2); Mean Corpuscular HGB Conc 33.7 g/dl (32-36); Mean Corpuscular Hemoglobin 32.6 pg (26-34); Mean Corpuscular Volume 96.8 fl (80-100); Mean Platelet Volume 8.9 fl (7.4-10.4); Monocytes Absolute Auto 0.7 K/mm3 (0.1-0.6); Monocytes Percent Auto 9.3 % (2.6-8.5); Neutrophils Absolute Auto 4.1 K/mm3 (1.3-6.7); Neutrophils Percent Auto 55.6 % (45.5-73.1); Platelet Count Result 221 k/mm3 (150-375); Red Blood Count 3.13 M/mm3 (4.2-5.4); White Blood Count 7.4 K/mm3 (4.5-10.0)
[2020-01-09 06:00] VITALS: BP 178/62; PULSE 67; RESP 18; TEMP 36.9; O2SAT 96
[2020-01-09 06:10] LABS: Alanine Aminotransferase 44 U/L (4-35); Albumin Level 2.9 g/dL (3.5-5.1); Alkaline Phosphatase 70 U/L (38-126); Aspartate Amino Transferase 43 U/L (14-36); Bilirubin,Total 0.3 mg/dL (0.2-1.3); Blood Urea Nitrogen 11 mg/dL (7-17); Calcium 7.9 mg/dL (8.4-10.2); Carbon Dioxide 32 mmol/L (22-30); Chloride 100 mmol/L (98-107); Estimated CRCL calculation 56 ml/min; Estimated Glomerular Filt Rate > 60; Glucose 123 mg/dL (65-105); Potassium 3.2 mmol/L (3.4-5.0); Sodium 135 mmol/L (137-145)
[2020-01-09] MEDS: FAMOTIDINE 20 MG TABLET 40 MG PO (08:12)
[2020-01-09] MEDS: POTASSIUM CHLORIDE 20 MEQ TABLET.ER PO (08:12)
[2020-01-09] MEDS: CHOLECALCIFEROL 1,000 UNIT TABLET 2000 UNITS PO (08:12)
[2020-01-09] MEDS: lisinopriL 20 MG TABLET 40 MG PO (08:13)
--- NOTE | 2020-01-09 11:26 | PM.DS ---
DS: Diagnosis Admitting Diagnosis Admitting Diagnosis: Tubulo-interstitial nephritis, not specified as acute or chronic Discharge Diagnosis (1) Bacteremia due to Escherichia coli: Code(s): R78.81 - Bacteremia; B96.20 - Unspecified Escherichia coli [E. coli] as the cause of diseases classified elsewhere Status: Acute Assessment and Plan: (2) Sepsis: Qualifiers: Sepsis acute organ dysfunction status: without acute organ dysfunction Sepsis type: Escherichia coli Qualified Code(s): A41.51 - Sepsis due to Escherichia coli [E. coli] Code(s): A41.9 - Sepsis, unspecified organism Status: Acute (3) Pyelonephritis: Code(s): N12 - Tubulo-interstitial nephritis, not specified as acute or chronic Status: Acute (4) Acute kidney injury: Code(s): N17.9 - Acute kidney failure, unspecified Status: Acute (5) Essential hypertension: Code(s): I10 - Essential (primary) hypertension Status: Chronic (6) Chronic back pain: Qualifiers: Back pain laterality: unspecified Back pain location: low back pain Sciatica presence: unspecified whether sciatica present Qualified Code(s): M54.5 - Low back pain; G89.29 - Other chronic pain Code(s): M54.9 - Dorsalgia, unspecified; G89.29 - Other chronic pain Status: Acute (7) Transaminitis: Code(s): R74.0 - Nonspecific elevation of levels of transaminase and lactic acid dehydrogenase [LDH] Status: Acute (8) Hypokalemia: Code(s): E87.6 - Hypokalemia Status: Acute (9) Epigastric pain: Code(s): R10.13 - Epigastric pain Status: Acute DS: Summary Hospital Course Reason for hospitalization: Fever Hospital Course: Date of admission: 01/04/20 Date of discharge: 01/09/20 Shania Walden is a 79 year old female with a PMH significant for HTN and chronic back pain who presented to the ED on 01/04/20 with complaints of fever, dysuria, lower abdominal pain and back pain. At presentation, T 101.0F, HR 94, RR 20, WBC 9.3, lactic 1.0, urine cloudy with 2+ LE, nitrates, WBC, and 4+ bacteria. CT abd/pelvis revealed multiple hypovascular areas in the left kidney, most likely pyelonephritis. She was admitted to the hospitalist service on 01/04/20. She initially met criteria for sepsis and was started on IV Ceftriaxone. Urine culture revealed E. Coli as did blood cultures. Given bacteremia, her Ceftriaxone was increased to 2 g and she completed 5 days of IV antibiotics. Repeat blood cultures show no growth to date. She will continue PO Cefdinir to complete a total of 14 days antibiotic therapy. Her dysuria and CVA tenderness resolved and she remained afebrile. She is recommended to repeat CT in 3-4 weeks at discretion of PCP. She did develop mild LALITHA which resolved uneventfully with IV fluids and was likely related to acute infection. She also had mild transaminitis which was monitored and appears to be trending down. Her blood pressure was monitored closely. Lisinopril held when LALITHA developed which then resulted in elevated BP. Lisinopril was resumed and she continued on cardizem and blood pressures stabilized. She will continue to monitor her blood pressures at home and record for PCP. Her chronic hypokalemia was managed with KCl as her home potassium was non-formulary. She will obtain repeat BMP in one week to monitor potassium level. She endorsed some epigastric discomfort consistent with GERD and CT noted hiatal hernia. In addition to her home famotidine, she was educated on some lifestyle changes to manage her symptoms. She began feeling much better and was asymptomatic and anxious for discharge. She was educated on her antibiotic regimen and follow up labs. All questions were answered and at her request, I updated her via phone call of her condition. After discussing worrisome signs and symptoms for which to return, she was discharged home in hemodynamically stable condition on the afternoon
[2020-01-09 14:00] VITALS: BP 171/59; PULSE 71; RESP 18; TEMP 36; O2SAT 96
== END 2020-01-09 15:54 | disposition home or self-care (01) | DRG 689 ==
LOC: ANHED 18:50 → ANH3MED 01-05 00:55
PROVIDERS: Physician Assistant; Admitting Provider Hospitalist; Emergency Provider General Practice; PCP Family Medicine; Visit Provider Physician Assistant
DX: N10 Acute pyelonephritis (principal); A41.51 Sepsis due to Escherichia coli [E. coli]; N17.9 Acute kidney failure, unspecified; G25.81 Restless legs syndrome; I10 Essential (primary) hypertension; M54.9 Dorsalgia, unspecified; G89.29 Other chronic pain; E87.6 Hypokalemia
CPT/HCPCS: 36415; 51701; 71045; 74177; 80048; 80053; 81001; 83605; 83690; 83735; 84132; 85025; 85027; 85610; 85730; 86140; 87040; 87077; 87086; 87088; 87186; 87804; 93005; 96361; 96365; 96367; 96375; 99285; A9270; J0131; J0360; J0696; J2270; J2405; J7030; J7120; Q9967

== ENCOUNTER 2020-01-28 09:09 | Outpatient (CLI) | payer MEDICARE, SELFPAY ==
--- NOTE | ~2020-01-28 | CT_ITS ---
EXAMINATION: CT abdomen pelvis w con DATE: 01/28/2020 09:47 INDICATION: Tubulointerstitial nephritis TECHNIQUE: Computed tomography (CT) of the abdomen and pelvis was performed with 100 cc Omnipaque 350 intravenous contrast. The dose-length product was 537.65 mGy-cm. Automated exposure control and iter ative reconstruction technique were employed. COMPARISON: CT dated 01/04/2020 FINDINGS: Lung bases are unremarkable. Heart size mildly enlarged. There is a 1.3 cm soft tissue nodu le inferior aspect of the left breast, not included on prior examinations. Gallbladder is not identif ied, likely surgically absent. There is dilation of the intra and extrahepatic bile ducts, likely att ributable to previous cholecystectomy and patient's age. Interval resolution of hypovascular areas in the left kidney, likely resolution of pyelonephritis. The spleen, pancreas, adrenal glands are unremarkable. There are bilateral renal cysts. Small hiatal hernia.. No significant pleural or pericardial effusion. Stable mild retroperitoneal lymphadenopathy, likely reactive. Nonobstructive bowel gas pattern. Colonic diverticulosis without evidence for diver ticulitis. No free air or free fluid. There are surgical changes are seen consistent with spinal fusi on at L2-5. IMPRESSION: 1. No acute abdominal abnormality. 2: Interval resolution of heterogeneous enhancement of the left kidney, likely resolution of pyelonep hritis. Reviewed, dictated and finalized at location A. IMPRESSION: 1. No acute abdominal abnormality. 2: Interval resolution of heterogeneous enhancement of the left kidney, likely resolution of pyelonephritis.
== END 2020-01-28 09:10 | disposition home or self-care (01) ==
PROVIDERS: PCP Family Medicine; Visit Provider Family Medicine
DX: N12 Tubulo-interstitial nephritis, not specified as acute or chronic (principal)
CPT/HCPCS: 74177; Q9967

== ENCOUNTER 2020-04-08 07:59 | Outpatient (CLI) | payer MEDICARE, SELFPAY ==
--- NOTE | ~2020-04-08 | US_ITS ---
EXAMINATION: US retroperitoneal duplex ltd DATE: 04/08/2020 09:23 INDICATION: Essential hypertension TECHNIQUE: Multiple grayscale, color Doppler, and pulsed Doppler images of the kidneys and renal jimmy macario were obtained. COMPARISON: None. FINDINGS: The aorta peak systolic velocity is 94 cm/s. The right renal artery peak systolic velocity is 59 cm/s in the proximal segment, 106 cm/s in the mid segment, and 133 cm/s in the distal segment. The left r enal artery peak systolic velocity is 58 cm/s in the proximal segment, 88 cm/s in the mid segment, an d 79 cm/s in the distal segment. IMPRESSION: 1. No Doppler evidence of renal artery stenosis. Reviewed, dictated and finalized at location A.
== END 2020-04-08 08:00 | disposition home or self-care (01) ==
PROVIDERS: PCP Family Medicine; Visit Provider Internal Medicine Nephrology
DX: I10 Essential (primary) hypertension (principal)
CPT/HCPCS: 93976

== ENCOUNTER 2020-05-18 08:39 | Outpatient (CLI) | payer MEDICARE, SELFPAY ==
--- NOTE | ~2020-05-18 | XR_ITS ---
EXAMINATION: XR chest 2V DATE: 05/18/2020 09:03 INDICATION: Dyspnea TECHNIQUE: PA and lateral views of the chest were obtained. COMPARISON: Chest radiograph dated 01/04/2020 FINDINGS: The lungs remain clear with no focal airspace opacities, pulmonary edema, pleural effusion or pneumot horax. Mild cardiomegaly with small bilateral paracardial fat pads. Tortuous and atherosclerotic thor acic aorta. Mild upper thoracic levocurvature with mild to moderate spondylosis. IMPRESSION: 1. No acute cardiopulmonary disease. 2. Cardiomegaly. Reviewed, dictated and finalized at location A.
--- NOTE | 2020-05-20 20:08 | WPDHOLTEREM ---
Holter/Event Monitor Holter/Event Monitor Date of procedure: 05/20/20 Procedure Type: 24 hour Holter monitor Diagnosis: palpitations Indications: palpitations Image/Tracing Quality: good Finding: The patient was monitored for 24 hours. The underlying rhythm was sinus with a minimum heart rate of 46 BPM, average heart of 59 BPM, and a maximum heart rate of 150 BPM. There were 11 PVCs seen. There were 1234 PACs noted. There were 26 runs of SVT the longest being for 31 beats, most being in the range of 4-5 seconds long. These appeared asymptomatic. The monitor suggested there are a couple of the episodes of atrial fibrillation, but these are quite brief, lasting for a few seconds and were probably SVTs also. There were no sustained tachyarrhythmias. There was no AV block, no significant pauses or conduction problems. The patient's only symptom, of chest heaviness while walking up stairs, occurred during sinus rhythm rate 63 beats per minute. Conclusion: Holter monitor is remarkable for brief episodes of paroxysmal supraventricular tachycardia as described above.
== END 2020-05-18 08:40 | disposition home or self-care (01) ==
PROVIDERS: PCP Family Medicine; Visit Provider Family Medicine
DX: R00.2 Palpitations (principal); R06.00 Dyspnea, unspecified; I51.7 Cardiomegaly
CPT/HCPCS: 71046; 93225; 93226

== ENCOUNTER 2020-06-04 12:30 | Outpatient (CLI) | payer MEDICARE, SELFPAY ==
--- NOTE | 2020-06-04 13:06 | ECHO_ITS ---
Patient Info Name: Shania Walden Age: 80 years : 1940 Gender: Female Ht: 62 in Wt: 169 lbs BSA: 1.86 m2 HR: 60 bpm Heart Rhythm: Sinus Rhythm Exam Date: 06/04/2020 1:19 PM Exam Location: [facility] Pulmonary Patient Status: Outpatient Admit Date: 06/04/2020 Staff Ordering Physician: Jes Zaragoza DO Cemetery Worker: Steven Davis RDCS, RT Attending Provider: Jes Zaragoza DO Exam Type: CA echo doppler color flow Study Info Complete two-dimensional, color flow and Doppler transthoracic echocardiogram is performed. Summary 1. Complete two-dimensional, color flow and Doppler transthoracic echocardiogram is performed. 2. Left ventricular chamber dimension is normal. 3. Left ventricular systolic function is normal, estimated at 60-65%. 4. The left ventricular diastolic function is grade I diastolic dysfunction. 5. E/e' 21 is elevated. 6. Global longitudinal strain is abnormal at -15.2%. 7. Left atrial chamber dimension is mildly enlarged. 8. There is trace mitral valve regurgitation. 9. Mild pulmonary hypertension, estimated pulmonary arterial systolic pressure is 47 mmHg. 10. Normal inferior vena cava with <50% collapse upon inspiration consistent with elevated right atrial pressure, 10 mmHg. Left Ventricle E/e' 21 is elevated. Global longitudinal strain is abnormal at -15.2%. Left ventricular chamber dimension is normal. Left ventricular systolic function is normal, estimated at 60-65%. The left ventricular diastolic function is grade I diastolic dysfunction. Right Ventricle Right ventricular chamber dimension is normal. Right ventricular systolic function is normal. Left Atria Left atrial chamber dimension is mildly enlarged. Right Atria Right atrial chamber dimension is normal. Aortic Valve The aortic valve is trileaflet. There is no aortic valve stenosis. There is no aortic valve regurgitation. Pulmonic Valve There is no pulmonic regurgitation. Mitral Valve There is no mitral valve stenosis. There is trace mitral valve regurgitation. Tricuspid Valve There is no tricuspid valve regurgitation. Mild pulmonary hypertension, estimated pulmonary arterial systolic pressure is 47 mmHg. Pericardium/Pleural There is no pericardial effusion. Inferior Vena Cava Normal inferior vena cava with <50% collapse upon inspiration consistent with elevated right atrial pressure, 10 mmHg. Aorta The aortic root size at the sinus of Valsalva is normal. Left Ventricular Outflow Tract Name Value Normal LVOT 2D LVOT Diameter 2.0 cm LVOT Doppler LVOT Peak Gradient 4 mmHg LVOT Mean Gradient 3 mmHg LVOT VTI 31 cm LVOT VTI/AV VTI Ratio 0.7 LVOT Stroke Volume 100 ml LVOT CO 5.7 l/min LVOT CI 3.1 l/min/m2 Mitral Valve Name Value Normal
== END 2020-06-04 12:31 | disposition home or self-care (01) ==
PROVIDERS: PCP Family Medicine; Visit Provider Family Medicine
DX: R06.00 Dyspnea, unspecified (principal); I27.20 Pulmonary hypertension, unspecified; R93.1 Abnormal findings on diagnostic imaging of heart and coronary circulation
CPT/HCPCS: 93306

== ENCOUNTER 2020-08-05 11:49 | Outpatient (CLI) | payer MEDICARE, SELFPAY ==
--- NOTE | ~2020-08-05 | MM_ITS ---
EXAMINATION: MM screening [facility] BI w pat HISTORY: Screening mammogram TECHNIQUE: Craniocaudal and mediolateral oblique 3-D tomosynthesis images were obtained and synthetic 2-D images were generated. CAD analysis was submitted and interpreted. COMPARISON: 07/10/2019, 06/20/2019, 05/09/2018, 01/26/2017 BREAST PARENCHYMAL COMPOSITION: The breasts are almost entirely fatty.\ FINDINGS: Multiple masses are again noted in the lower left breast, some of which demonstrate slight interval increase in size. Several cysts were noted at prior ultrasound examination. There is no evid ence of suspicious mass, calcification, or architectural distortion to suggest malignancy in either b reast. There has been no suspicious interval change. IMPRESSION: 1. No mammographic evidence of malignancy. 2. Recommend routine screening mammography in one year. BI-RADS Category 2: Benign finding(s). Reviewed, dictated and finalized at location A. 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
== END 2020-08-05 11:50 | disposition home or self-care (01) ==
PROVIDERS: PCP Family Medicine; Visit Provider Family Medicine
DX: Z12.31 Encounter for screening mammogram for malignant neoplasm of breast (principal)
CPT/HCPCS: 77063; 77067

== ENCOUNTER → 2021-08-24 07:30 | Outpatient (CLI) | payer MEDICARE, SELFPAY ==
--- NOTE | ~2021-08-24 | MR_ITS ---
EXAMINATION: MR lumbar spine wo [facility] EXAM DATE: 08/24/2021 08:25 INDICATION: Lumbar radiculopathy lumbar radiculopathy TECHNIQUE: Multi-sequential, multiplanar MR images of the lumbar spine were obtained without contrast . Sagittal T1, T2, T2 fat saturation images. Axial T2 weighted images. Correlation is made to [facility] spine 07/29/2016. FINDINGS: Posterior pedicular screws and laminectomies L2-L5. Some solid bone bridging suspected at t hese levels as well. There is moderate disc disease at L1-2, moderate to severe at L5-S1. Straighteni ng of normal lumbar lordosis. The conus medullaris terminates at the L1/2 level and has normal signal intensity and morphology. Endplate degenerative signal changes L5-S1 and 3 mm anterolisthesis at th is level. Paraspinal soft tissue is unremarkable. Level by level evaluation: T12-L1: There is a mild diffuse disc bulge. Facet arthropathy: Mild to moderate. Neural foraminal stenosis: No stenosis. Central canal stenosis: No stenosis. L1-L2: There is a mild to moderate diffuse disc bulge. Facet arthropathy: Moderate. Neural foraminal stenosis: Mild right. Central canal stenosis: Mild. L2-L3: This level is fused. Facet arthropathy: Poorly visualized. Neural foraminal stenosis: No stenosis. Central canal stenosis: No stenosis. Posterior decompression. L3-L4: This level is fused. Facet arthropathy: Poorly visualized. Neural foraminal stenosis: No stenosis. Central canal stenosis: No stenosis. Posterior decompression L4-L5: This level is fused. Facet arthropathy: Poorly visualized. Neural foraminal stenosis: No stenosis. Central canal stenosis: No stenosis. Posterior decompression. L5-S1: There is a moderate diffuse disc bulge. Facet arthropathy: Moderate to severe. Neural foraminal stenosis: Moderate bilateral. Central canal stenosis: Moderate to severe. IMPRESSION: 1. Surgical changes L2-L5. 2. L5-S1 moderate to severe disc disease, central canal stenosis, and grade 1 anterolisthesis. Reviewed, dictated and finalized at location A. CUTTER
== END ==
PROVIDERS: PCP Family Medicine; Visit Provider Nurse Practitioner Adult Health
DX: M54.16 Radiculopathy, lumbar region (principal); Z98.890 Other specified postprocedural states; M51.9 Unspecified thoracic, thoracolumbar and lumbosacral intervertebral disc disorder; M48.07 Spinal stenosis, lumbosacral region; M43.17 Spondylolisthesis, lumbosacral region
CPT/HCPCS: 72148

== ENCOUNTER 2021-09-02 10:23 | Outpatient (CLI) | payer MEDICARE, SELFPAY ==
--- NOTE | ~2021-09-02 | MM_ITS ---
EXAMINATION: MM screening [facility] BI w pat HISTORY: Screening TECHNIQUE: Craniocaudal and mediolateral oblique 3-D tomosynthesis images were obtained and synthetic 2-D images were generated. CAD analysis was submitted and interpreted. COMPARISON: Comparison to multiple prior studies sequentially, with oldest reviewed study dated 01/04. BREAST PARENCHYMAL COMPOSITION: Breast composed of scattered areas of fibroglandular density. FINDINGS: There is no evidence of suspicious mass, calcification, or architectural distortion to sugg est malignancy in either breast. There has been no suspicious interval change. IMPRESSION: 1. No mammographic evidence of malignancy. 2. Recommend routine screening mammography in one year. BI-RADS Category 1: Negative Reviewed, dictated and finalized at location A. 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
== END 2021-09-02 10:24 | disposition home or self-care (01) ==
LOC: ANHIMG 10:25
PROVIDERS: PCP Family Medicine; Visit Provider Family Medicine
DX: Z12.31 Encounter for screening mammogram for malignant neoplasm of breast (principal)
CPT/HCPCS: 77063; 77067

== ENCOUNTER 2022-04-19 07:41 | Outpatient (CLI) | payer MEDICARE, SELFPAY ==
--- NOTE | ~2022-04-19 | US_ITS ---
EXAMINATION: US carotid duplex BI DATE: 04/19/2022 09:07 INDICATION: Right carotid bruit TECHNIQUE: Grayscale, color Doppler, and pulsed Doppler images of the cervical carotid arteries were obtained. The degree of vessel stenosis is placed in one of the following categories: normal, <50%, 5 0-69%, >=70% but less than near-occlusion, near-occlusion, or total occlusion. Note that percent sten osis relative to normal distal artery lumen diameter is indirectly measured from velocity measurement s as described by Ramon, et al. Radiology 2003; 229:340-346. Notes: Normal: Peak systolic velocity <125 centimeters/sec and no plaque <50%. Peak systolic velocity <125 ( EDV <40; ICA/CCA PSV ratio <2.0; used these factors only a tandem lesions or low cardiac output or co ntralateral disease) 50-69 %: PSV 125-230 (EDV 40-100; ratio 2-4) >= 70% but less than near occlusion: PSV greater than 230 (EDV > 100; ratio> 4.0) Near Occlusion: PSV that is variable; markedly narrowed lumen Occlusion: Absent flow on color/spectral Doppler and no lumen on juan scale. COMPARISON: None. FINDINGS: RIGHT: The right common carotid artery (CCA) peak systolic velocity (PSV) is 91 cm/s. The right internal car otid artery (ICA) PSV is 90 cm/s. The right ICA end-diastolic velocity (EDV) is 12 cm/s. The right IC A/CCA PSV ratio is 1.0. The external carotid artery (ECA) PSV is 103 cm/s. There is antegrade flow in the right vertebral artery. LEFT: The left CCA PSV is 92 cm/s. The left ICA PSV is 209 cm/s. The left ICA EDV is 27 cm/s. The left ICA/ CCA PSV ratio is 2.3. The ECA PSV is 56 cm/s. There is antegrade flow in the left vertebral artery. IMPRESSION: 1. Less than 50% stenosis in the right internal carotid artery by sonographic criteria. 2. 50-69% stenosis in the left internal carotid artery by sonographic criteria. Reviewed, dictated and finalized at location A. IMPRESSION: 1. Less than 50% stenosis in the right internal carotid artery by sonographic c bruceeria. 2. 50-69% stenosis in the left internal carotid artery by sonographic criteria.
== END 2022-04-19 07:42 | disposition home or self-care (01) ==
PROVIDERS: PCP Family Medicine; Visit Provider Family Medicine
DX: R09.89 Other specified symptoms and signs involving the circulatory and respiratory systems (principal); I65.23 Occlusion and stenosis of bilateral carotid arteries
CPT/HCPCS: 93880

== ENCOUNTER 2022-08-15 14:49 | Outpatient (CLI) | payer MEDICARE, SELFPAY ==
--- NOTE | ~2022-08-15 | DEXA_ITS ---
Bone Density Report Name: PEREZ JONES Age: 82 Sex: Female Ethnicity: White Date of : 1940 Indication: postmenopausal; screening for osteoporosis; height loss; hysterectomy; secondary osteoporosis; Referring Provider: LEA, ALANNA Donald Study: Bone densitometry was performed. Exam Date: August 15, 2022 Accession number: [id number] Bone Density: Region BMD T-score Z-score Classification Femoral Neck (Left) 0.568 -2.5 -0.2 Osteoporosis Total Hip (Left) 0.723 -1.8 0.3 Osteopenia Femoral Neck (Right) 0.700 -1.3 1.0 Osteopenia Total Hip (Right) 0.748 -1.6 0.5 Osteopenia Total Hip Mean 0.735 -1.7 0.4 Osteopenia World Health Organization criteria for BMD impression classify patients as: Normal (T-score at or above -1.0), Osteopenia (T-score between -1.0 and -2.5), or Osteoporosis (T-score at or below -2.5). 10-year Fracture Risk: FRAX not reported because: Some T-score for Spine Total or Hip Total or Femoral Neck at or below -2.5 Clinical Information Provided by Patient: Has secondary osteoporosis Has used the following medications: Vitamin D Has the following medical conditions: Hysterectomy Patient maximum height was 64 Menopause Age: 39 Drinks caffeinated beverages Onset of menses at age 12 Number of children 3 Impression: The patient has osteoporosis, based on the Left Femoral Neck T-score. Discussion: INCREASED RISK OF FRACTURE. BONE DENSITY IS UNDESIRABLY LOW AT ONE OR MORE SKELETAL SITES, CONSISTENT WITH POSTMENOPAUSAL OSTEOPOROSIS. This patient's lowest T-score meets the World Health Organization's (WHO) criteria for osteoporosis at one or more sites (T-score -2.5 or below). In untreated patients, the risk of osteoporotic fracture increases approximately two-fold for each 1.0 SD decrease in T-score. Low bone density is not the only risk factor for fracture; also consider factors such as patient's age, frailty or poor health, risk of falling, risk of injury, previous osteoporotic fracture, family history of osteoporosis, cigarette smoking, low body weight, etc. Not everyone with low bone mineral density has osteoporosis; osteomalacia and other metabolic bone disorders should also be considered. Patients who have osteoporosis should be evaluated for specific diseases and conditions (secondary causes) that may cause or contribute to bone loss. The [place] Association [employer] Clinical Endocrinologists (AACE) and National Osteoporosis Foundation (NOF) recommend pharmacologic intervention for all postmenopausal women whose T-score is in this range. The patient should follow a healthful lifestyle (good nutrition with adequate calcium and vitamin D, and appropriate weight-bearing exercise). Follow-Up: Consider a repeat BMD and Vertebral Fracture Assessment (VFA) exam in 2 years or sooner if medically
== END 2022-08-15 14:50 | disposition home or self-care (01) ==
LOC: ANHIMG 14:50
PROVIDERS: PCP Family Medicine; Visit Provider Family Medicine
DX: Z78.0 Asymptomatic menopausal state (principal); M85.89 Other specified disorders of bone density and structure, multiple sites
CPT/HCPCS: 77080

== ENCOUNTER 2022-09-05 08:32 | Outpatient (CLI) | payer MEDICARE, SELFPAY ==
--- NOTE | ~2022-09-05 | MM_ITS ---
EXAMINATION: MM screening ashish BI w pat HISTORY: Screening TECHNIQUE: Craniocaudal and mediolateral oblique 3-D tomosynthesis images were obtained and synthetic 2-D images were generated. CAD analysis was submitted and interpreted. COMPARISON: Comparison to multiple prior studies sequentially, with oldest reviewed study dated 12/2016. BREAST PARENCHYMAL COMPOSITION: There are scattered areas of fibroglandular density. FINDINGS: There is no evidence of suspicious mass, calcification, or architectural distortion to sugg est malignancy in either breast. There has been no suspicious interval change. IMPRESSION: 1. No mammographic evidence of malignancy. 2. Recommend routine screening mammography in one year. BI-RADS Category 1: Negative Reviewed, dictated and finalized at location B. 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
== END 2022-09-05 08:33 | disposition home or self-care (01) ==
LOC: ANHIMG 08:33
PROVIDERS: PCP Family Medicine; Visit Provider Family Medicine
DX: Z12.31 Encounter for screening mammogram for malignant neoplasm of breast (principal)
CPT/HCPCS: 77063; 77067

== ENCOUNTER 2023-02-23 13:23 | Outpatient (CLI) | payer MEDICARE, SELFPAY ==
--- NOTE | ~2023-02-23 | US_ITS ---
EXAMINATION: US venous doppler [facility] DATE: 02/23/2023 14:59 INDICATION: Right lower limb pain. TECHNIQUE: Grayscale ultrasound images without and with compression and Doppler ultrasound images of the bilateral lower extremity veins were obtained. COMPARISON: None. FINDINGS: The visualized portions of right common femoral vein, profunda (deep) femoral vein, femoral vein, pop liteal vein, peroneal veins, posterior tibial veins, and greater saphenous vein outflow are patent. The visualized portions of left common femoral vein, profunda femoral vein, femoral vein, popliteal v ein, peroneal veins, posterior tibial veins, and greater saphenous vein outflow are patent. IMPRESSION: 1. No deep venous thrombosis. Reviewed, dictated and finalized at location A.
--- NOTE | 2023-02-23 14:03 | ECG_ITS ---
Measurements Intervals [place] Rate: 61 P: 76 ID: [id number] QRS: 32 QRSD: 100 T: 44 QT: 407 QTc: 411 Interpretive Statements SINUS RHYTHM WITH FIRST DEGREE AV BLOCK COMPARED TO ECG 01/04/2020 16:56:23 FIRST DEGREE AV BLOCK NOW PRESENT Electronically Signed On 02-23-2023 15:32:28 CDT by Fermin Alcazar M.D.
== END 2023-02-23 13:24 | disposition home or self-care (01) ==
PROVIDERS: PCP Family Medicine; Visit Provider Orthopaedic Surgery
DX: M17.11 Unilateral primary osteoarthritis, right knee (principal); I10 Essential (primary) hypertension; M23.51 Chronic instability of knee, right knee; R79.89 Other specified abnormal findings of blood chemistry; I44.0 Atrioventricular block, first degree
CPT/HCPCS: 93005; 93970

== ENCOUNTER 2023-04-03 07:29 | Outpatient (CLI) | payer MEDICARE, SELFPAY ==
--- NOTE | ~2023-04-03 | NM_ITS ---
EXAMINATION: NM mis stress w perfusion DATE: 04/03/2023 11:04 INDICATION: Other forms of dyspnea TECHNIQUE: Rest images were obtained following intravenous administration of 10.2 mCi Tc99m tetrofosm in (Myoview). The patient was infused intravenously with Lexiscan (Regadenoson). Then, 33.2 mCi Tc99m tetrofosmin (Myoview) was administered intravenously, and stress images were obtained. Data was danuta nstructed into short axis and horizontal and vertical long axis SPECT images. Gated SPECT images were also obtained. COMPARISON: None. FINDINGS: There is no definite reversible or fixed perfusion abnormality to suggest ischemia or infar ction. There is normal left ventricular chamber size, wall motion and ejection fraction. Left ventr icular ejection fraction measures >70%. IMPRESSION: 1. Normal myocardial perfusion at rest and during stress. 2. Left ventricular ejection fraction measuring >70%. Reviewed, dictated and finalized at location A.
--- NOTE | 2023-04-03 07:53 | EST_ITS ---
Patient Info Name: Shania Walden Age: 82 years : 1940 Gender: Female Ht: 63 in Wt: 180 lbs BSA: 1.94 m2 HR: 178 bpm BP: 178 / 84 mmHg Heart Rhythm: Sinus Rhythm Exam Date: 04/03/2023 9:25 AM Exam Location: [facility] Stress Patient Status: Outpatient Admit Date: 04/03/2023 Staff Ordering Physician: Dieter Balderas DO Attending Provider: Dieter Balderas DO Exercise Technologist: Minerva Orourke CT Exercise Physician: Dieter Balderas DO Exam Type: CA stress mis w NM Study Info Indications R06.09 - Other forms of dyspnea A regadenoson stress test was performed. Summary 1. 1. Negative lexiscan stress test for ischemic ST changes by ECG criteria. 2. 2. Baseline hypertension. 3. 3. Nuclear scan to follow and will be reported separately. Please correlate with it. 4. 4. Patient informed of the above results. Protocol: Lexiscan Stress ECG Details Stage: REST Duration (min): 3 min : 35 sec HR (bpm): 63 SBP (mmHg): 178 DBP (mmHg): 84 Stage: REST Duration (min): 8 min : 19 sec HR (bpm): 66 SBP (mmHg): 178 DBP (mmHg): 84 Stage: STAGE 1 Duration (min): 1 min : 0 sec HR (bpm): 79 SBP (mmHg): 163 DBP (mmHg): 63 Stage: RECOVERY Duration (min): 1 min : 0 sec HR (bpm): 80 SBP (mmHg): 163 DBP (mmHg): 63 Stage: RECOVERY Duration (min): 2 min : 0 sec HR (bpm): 77 SBP (mmHg): 163 DBP (mmHg): 63 Stage: RECOVERY Duration (min): 3 min : 0 sec HR (bpm): 77 SBP (mmHg): 162 DBP (mmHg): 66 Stage: RECOVERY Duration (min): 3 min : 15 sec HR (bpm): 75 SBP (mmHg): 162 DBP (mmHg): 66 Rest HR: 66 bpm Peak HR: 81 bpm Rest Sys BP: 178 mmHg Peak Sys BP: 163 mmHg Max Pred HR: 139 bpm % Max Pred HR: 58 % Target HR: 118 bpm Max RPP: 13,203 bpm*mmHg Termination Reason: Completed protocol Cardiac Symptoms: Shortness of breath, Chest pain Total Time: 1 min : 0 sec Rest Vazquez BP: 84 mmHg Peak Vazquez BP: 63 mmHg Total Dose: 0.4 mg Resting ECG Sinus rhythm, first degree AV block. Stress ECG No ST changes. Arrhythmias None. Report Signatures
--- NOTE | 2023-04-03 07:53 | ECHO_ITS ---
Patient Info Name: Shania Walden Age: 82 years : 1940 Gender: Female Ht: 63 in Wt: 180 lbs BSA: 1.94 m2 HR: 62 bpm BP: 191 / 86 mmHg Technical Quality: Fair Exam Date: 04/03/2023 8:04 AM Exam Location: [facility] Patient Status: Outpatient Admit Date: 04/03/2023 Staff Ordering Physician: Dieter Balderas DO Preassembler [employer]: Cheryl Lagos RDCS Attending Provider: Dieter Balderas DO Referring Physician: Andrey JJ; Exam Type: CA echo doppler color flow Study Info Indications R06.09 - Other forms of dyspnea Complete two-dimensional, color flow and Doppler transthoracic echocardiogram is performed. Summary 1. Complete two-dimensional, color flow and Doppler transthoracic echocardiogram is performed. 2. Left ventricular chamber dimension is normal. 3. Left ventricular systolic function is normal, estimated at 60-65%. 4. There is mild concentric increased left ventricular wall thickness. 5. The left ventricular diastolic function is grade I diastolic dysfunction. 6. E/e' 14 is mildly elevated. 7. Global longitudinal strain is abnormal at -14.2%. 8. Left atrial chamber dimension is mildly enlarged. 9. Right atrial chamber dimension is mildly enlarged. 10. There is trace mitral valve regurgitation. 11. No pulmonary hypertension, estimated pulmonary arterial systolic pressure is 12 mmHg. Left Ventricle E/e' 14 is mildly elevated. Global longitudinal strain is abnormal at -14.2%. Left ventricular chamber dimension is normal. Left ventricular systolic function is normal, estimated at 60-65%. There is mild concentric increased left ventricular wall thickness. The left ventricular diastolic function is grade I diastolic dysfunction. Right Ventricle Right ventricular chamber dimension is normal. Right ventricular systolic function is normal. Left Atria Left atrial chamber dimension is mildly enlarged. Right Atria Right atrial chamber dimension is mildly enlarged. Aortic Valve The aortic valve is trileaflet. There is no aortic valve stenosis. There is no aortic valve regurgitation. Pulmonic Valve There is no pulmonic regurgitation. Mitral Valve There is no mitral valve stenosis. There is trace mitral valve regurgitation. Tricuspid Valve There is no tricuspid valve regurgitation. No pulmonary hypertension, estimated pulmonary arterial systolic pressure is 12 mmHg. Pericardium/Pleural There is no pericardial effusion. Inferior Vena Cava Normal inferior vena cava with >50% collapse upon inspiration consistent with normal right atrial pressure, 5 mmHg. Aorta The aortic root size at the sinus of Valsalva is normal. Left Ventricular Outflow Tract Name Value Normal LVOT 2D LVOT Diameter 2.0 cm LVOT Doppler LVOT Peak Gradient 6 mmHg LVOT Mean Gradient 3 mmHg LVOT VTI 34 cm LVOT VTI/AV VTI Ratio 1.1 LVOT Stroke Volume 105 ml LVOT CO 5.9 l/min LVOT CI 3.0 l/min/m2 Pulmonic Valve Name
== END 2023-04-03 07:30 | disposition home or self-care (01) ==
PROVIDERS: PCP Family Medicine; Visit Provider Internal Medicine Cardiovascular Disease
DX: R06.09 Other forms of dyspnea (principal); I51.7 Cardiomegaly; I10 Essential (primary) hypertension
CPT/HCPCS: 78452; 93017; 93306; A9502; J2785

== ENCOUNTER 2023-05-16 10:21 | Outpatient (CLI) | payer MEDICARE, SELFPAY ==
[2023-05-16 12:14] LABS: Basophils Absolute Auto 0.1 K/mm3 (0.0-0.1); Basophils Percent Auto 0.7 % (0.2-1.2); Eosinophils Absolute Auto 0.3 K/mm3 (0-0.3); Eosinophils Percent Auto 4.5 % (0-4.4); Hemoglobin 11.5 g/dL (12.0-15.0); Immature Granulocyte Absolute 0.02 K/mm3 (0.00-0.031); Immature Granulocyte Percent A 0.3 % (0-0.5); Lymphocytes Absolute Auto 1.55 K/mm3 (0.9-3.2); Lymphocytes Percent Auto 20.7 % (18.3-44.2); Mean Corpuscular HGB Conc 31.9 g/dl (32-36); Mean Corpuscular Volume 103.2 fl (80-100); Mean Platelet Volume 9.1 fl (7.4-10.4); Monocytes Absolute Auto 0.7 K/mm3 (0.1-0.6); Monocytes Percent Auto 8.8 % (2.6-8.5); Neutrophils Absolute Auto 4.9 K/mm3 (1.3-6.7); Platelet Count Result 225 k/mm3 (150-375); Red Blood Count 3.49 M/mm3 (4.2-5.4); Red Cell Distribution Width 13.5 % (11.5-14.5); White Blood Count 7.5 K/mm3 (4.5-10.0)
[2023-05-16 12:21] LABS: Appearance Urine Clear (Clear); Bilirubin Urine Negative (Negative); Blood Urine Negative (Negative); Color Urine Yellow (Yellow); Glucose Urine UA Negative (Negative); Ketones Urine Negative (Negative); Leukocyte Esterase Ur Negative LEU/UL (Negative); Nitrate Urine Negative (Negative); Protein Urine Negative (Negative); Specific Grav Ur 1.017 (1.001-1.035)
[2023-05-16 12:23] LABS: Albumin Level 3.8 g/dL (3.5-5.1); Anion Gap 3 mmol/L (8-16); Blood Urea Nitrogen 22 mg/dL (7-17); Calcium 8.6 mg/dL (8.4-10.2); Carbon Dioxide 30 mmol/L (22-30); Chloride 103 mmol/L (98-107); Estimated Glomerular Filt Rate 48; Glucose 96 mg/dL (65-110); Potassium 4.5 mmol/L (3.4-5.0); Sodium 136 mmol/L (137-145)
[2023-05-16 12:25] LABS: Add Urine Microscopic? NO
[2023-05-16 12:28] LABS: Urine Cotinine NEGATIVE
[2023-05-16 12:29] LABS: Prothrombin Time 14.2 Seconds (11.1-14.7)
[2023-05-16 12:30] LABS: Hemoglobin A1C 5.1 % (<5.7); Partial Thromboplastin Time 33.3 SECONDS (22.3-36.8)
== END 2023-05-16 10:22 | disposition home or self-care (01) ==
LOC: ANHSURGERY 10:25
PROVIDERS: PCP Family Medicine; Visit Provider Orthopaedic Surgery
DX: Z01.818 Encounter for other preprocedural examination (principal); M17.11 Unilateral primary osteoarthritis, right knee
CPT/HCPCS: 80048; 80307; 81003; 82040; 83036; 85025; 85610; 85730; 87081

== ENCOUNTER 2023-05-30 00:04 | Day surgery (SDC) | payer MEDICARE, SELFPAY ==
[2023-05-16 10:53] VITALS: BP 184/64; PULSE 56; RESP 16; TEMP 36.9; O2SAT 98; BMI 32.6
--- NOTE | 2023-05-16 11:13 | PC.NURSE ---
Report to the Outpatient Waiting Room, entrance under the green pavilion located off [facility], at time __6:00AM on date __05/30/23 . Planned Procedure Time: __7:30AM . Time changes happen often and if your time is changed the preop area will call you the afternoon before. - You and your visitor will be asked to self-screen and do not enter if you have any COVID symptoms. - A mask is optional within the hospital at this time. Patients may have clear liquids (water, carbonated beverages, clear teas, apple juice) until 3 hours prior to surgery with a maximum of 20 ounces. - No food from midnight until time of surgery Take the following medications with a SIP of water the morning of surgery: ___NEBIVOLOL, NUCENTA, ALBUTEROL INHALER PRN DO NOT STOP ANY OF YOUR OTHER PRESCRIPTION MEDICATIONS PRIOR TO SURGERY ?EXCEPT THE FOLLOWING Medications to discontinue per physician ____HOLD ASPIRIN PER DR FRENCH HOLD ALL VITAMINS/SUPPLEMENTS 3 DAYS PRE-OP-- LAST DOSE 05/26/23 Please no make-up, nail maori, hairspray, perfume, deodorant, or body powder the day of surgery. No jewelry (including any body piercings) or valuables the day of surgery, leave them at home. Please take a shower or bath the night before, or the morning of, surgery with an antibacterial soap. Wear comfortable, loose fitting clothing. - Jewelry must be removed prior to entering the operating room. Rings and piercings that are not removed may be cut off. - The hospital will not accept responsibility for valuables. - Please leave all valuables, including medications, at home the day of surgery. If you are going home after surgery, a licensed refrigerated company driver must drive you home. - NO public transportation without another adult if you receive anesthesia. - We recommend that an adult stay with you for 24 hours following discharge. - We also recommend that you do not drive, make important decision, drink alcoholic beverages, or take any drugs that were not prescribed by your health care provider for at least 24 hours after your discharge time. Follow any additional instructions given to you from your surgeon. If you or anyone in your household have experienced Covid symptoms in the past week, please notify your surgeon or the nurse liaison at the phone number below for possible testing. Telephone instructions given to _PATIENT & HUSBAND and asked if any additional questions and then verbalized understanding. Patient advised to call surgeon office or pre surgery nurse liaison [phone] if any additional questions.
[2023-05-30] VITALS (13 sets, daily range): BP systolic 127–184; BP diastolic 47–68; PULSE 51–74; RESP 12–18; TEMP 35.9–37; O2SAT 95–100; BMI 32.3
--- NOTE | ~2023-05-30 | XR_ITS ---
EXAMINATION: [id number] DATE: 05/30/2023 10:29 INDICATION: Right total knee arthroplasty. Postop. TECHNIQUE: 2 views of right knee were obtained. COMPARISON: Right knee radiographs 02/13/2023 FINDINGS: There is a total right knee arthroplasty without patellar resurfacing in near-anatomic alig nment. No fracture. There is gas in the knee joint and soft tissues, consistent with recent surgery. Anterior skin laura are noted. IMPRESSION: 1. Total right knee arthroplasty in near-anatomic alignment. Reviewed, dictated and finalized at location A.
--- NOTE | 2023-05-30 06:43 | WPDANESEPPF ---
Anes - Initial Pre Proc Eval Procedure: Operation Date: 05/30/23 07:30 Proposed Procedures p Right Total Knee Arthroplasty - Rob Killian MD Date/Time: 05/30/23 06:44 Surgeon: Rob Killian MD Pre Op Diagnosis: right knee DJD Patient Data Age: 83 Gender: F Height: 1.6 m Weight: 83.6 kg Last Vital Signs Temp 36.9 C 05/16/23 10:53 Pulse 56 L 05/16/23 10:53 Resp 16 05/16/23 10:53 BP 184/64 H 05/16/23 10:53 Pulse Ox 98 05/16/23 10:53 O2 Del Method Room Air 05/16/23 10:53 Allergies Allergy/AdvReac Type Severity Reaction Status Date / Time Penicillins Allergy Intermediate Hives Verified 05/30/23 06:35 Sulfa (Sulfonamide Allergy Intermediate Other Verified 05/30/23 06:35 Antibiotics) Home Medications Medication Instructions Recorded Confirmed Type cholecalciferol (vitamin D3) 50 2,000 unit PO DAILY 09/10/19 05/16/23 History mcg (2,000 unit) tablet docusate sodium 100 mg capsule 300 mg PO HS 01/04/20 05/16/23 History (Stool Softener) potassium 99 mg tablet 99 mg PO DAILY 11/24/20 05/16/23 History lubiprostone 24 mcg capsule 24 mcg PO DAILY 11/08/21 05/16/23 History (Amitiza) tapentadol 100 mg tablet,extended 100 mg PO BID 03/11/22 05/16/23 History release,12 hr (Nucynta ER) calcium carbonate 600 mg calcium 600 mg PO BID 08/17/22 05/16/23 History (1,500 mg) tablet (Calcium) albuterol sulfate 90 mcg/actuation 2 puff inhalation Q4H PRN 01/18/23 05/16/23 Rx aerosol inhaler (Ventolin HFA) shortness of breath or wheezing #6.7 grams aspirin 81 mg tablet,delayed 81 mg PO DAILY 02/22/23 05/16/23 History release triamcinolone acetonide 0.1 % See Rx Instructions .Route 04/07/23 05/16/23 Rx topical cream .COMPLEX #30 grams chlorhexidine gluconate 4 % 1 applic topical ONCE #237 mL 05/12/23 05/16/23 Rx topical liquid (Hibiclens) famotidine 40 mg tablet 40 mg PO BID 05/16/23 05/16/23 History furosemide 40 mg tablet 20 mg PO BID 05/16/23 05/16/23 History hydrocodone 7.5 mg-acetaminophen 1 tablet PO BID PRN Pain 05/16/23 05/16/23 History 325 mg tablet lisinopril 30 mg tablet 30 mg PO QAM 05/16/23 05/16/23 History nebivolol 10 mg tablet 10 mg PO DAILY 05/16/23 05/16/23 History spironolactone 25 mg tablet 25 mg PO DAILY 05/16/23 05/16/23 History vitamins A,C,G-wupc-yttyal 4,296 1 cap PO DAILY 05/16/23 05/16/23 History mcg-226 mg-90 mg capsule (PreserVision AREDS) ropinirole 4 mg tablet,extended 4 mg PO BID #180 tabs 05/26/23 Rx release 24 hr Patient hx anesthesia problems: none Family hx anesthesia problems: none Results Review: All pre-operative results and documents have been reviewed as part of the pre-operative evaluation. [facility] Past Medical History Medical History Chronic back pain Diverticulitis Essential hypertension IFG (impaired fasting glucose) Resistant hypertension Right knee pain RLS (restless legs syndrome) Screening mammogram, encounter for Venous insufficiency Surgical History Surgical History H/O foot surgery bilat H/O lateral meniscus repair of right knee H/O rectal polypectomy several H/O: hysterectomy History of back surgery titanium screws in her back in 2001 and 2003 History of bladder suspension procedure Hx of appendectomy Hx of cholecystectomy Total knee replacement status left Family History Family History Mother Hypertension Cerebrovascular accident Family history of diabetes mellitus in first degree relative Father Hypertension Family history of diabetes mellitus in first degree relative Family history of congestive heart failure Sibling Hypertension Asthma Family history of diabetes mellitus in first degree relative Social History Social History Social History:
[2023-05-30] MEDS: LACTATED RINGERS 1,000 ML 30 ML IV CONT ×2 (06:45→10:15)
[2023-05-30] MEDS: ACETAMINOPHEN 500 MG TABLET 1000 MG PO (06:55)
--- NOTE | 2023-05-30 07:20 | SUR.PREOP ---
0654- Patient Tranexamic Acid IVPB spiked and initial drip started. 0655- Tranexamic Acid stopped and taken out of pre-op room 8 due to patient refusing with history of blood clots. 0720- Notified Dr. Killian patient not given 1GM Tranexamic Acid due to history of blood clots. Made Dr. Killian aware patient and family have questions before proceeding to OR. Per Dr. Killian he will discuss plan of care with family and patient at bedside.
--- NOTE | 2023-05-30 07:31 | WPDHPUPDATE1 ---
History and Physical Update Update Date/Time: 05/30/23 07:31 History and Physical has been reviewed, including an updated exam of the patient. There are NO changes in the patient's condition. Risks, benefits, and alternatives have been discussed and questions answered. Patient agrees to proceed with procedure.
[2023-05-30] MEDS: ceFAZolin 2 GM/D5W 50 ML 2 GM/50 ML BAG IVPB ×2 (07:39→16:35)
[2023-05-30] MEDS: TRANEXAMIC ACID 1,000 MG/10 ML AMPUL 1000 MG TOPICAL (09:10)
[2023-05-30] MEDS: GENTAMICIN BONE CEMENT REFOBACIN 1 EACH TOPICAL (09:13)
[2023-05-30] MEDS: fentaNYL CITRATE INJ (*CRX) 100 MCG/2 ML VIAL 25 MCG IV PUSH ×6 (10:28→11:07)
--- NOTE | 2023-05-30 10:29 | W.PM.PROC2 ---
Procedure Note - Detailed Date of Procedure 05/30/23 Pre-op Diagnosis right knee DJD Post-op Diagnosis Same Procedure Performed R TKA Surgeon Rob Killian MD Anesthesia General Description of Procedure THE RIGHT KNEE WAS PREPPED AND DRAPED IN THE STERILE FASHION. THERE WAS A 10 DEGREE FLEXION CONTRACTURE. A MIDLINE SKIN INCISION WAS MADE. A MEDIAL PARAPATELLAR ARTHROTOMY WAS MADE. THE PATELLA WAS EVERTED. THERE WAS TRICOMPARTMENT DJD. THERE WAS MINIMAL PATELLA DJD. AN INTRAMEDULLARY TUSHAR WAS PLACED IN THE FEMUR. A DISTAL FEMORAL CUT WAS MADE IN 5 DEGREES OF VALGUS REMOVING APPROXIMATELY 9 MM OF BONE FROM THE DISTAL FEMUR. THE FEMUR WAS SIZED TO 65. A 65 FEMORAL CUTTING BLOCK WAS PLACED IN 3 DEGREES OF EXTERNAL ROTATION AND IN ALIGNMENT WITH VENITA'S LINE AND THE TRANSEPICONDYLAR AXIS. ANTERIOR POSTERIOR AND CHAMFER CUTS WERE MADE. THE CUTS WERE EXCELLENT. NEXT AN INTRAMEDULLARY CUTTING GUIDE WAS PLACED IN THE TIBIA. A TRANS TIBIAL CUT WAS MADE ALONG THE LONG AXIS OF THE TIBIA. APPROXIMATELY 10 MM OF BONE WAS REMOVED FROM THE HIGH SIDE OF THE TIBIA. THE TIBIA WAS THEN PLANED TO A SMOOTH SURFACE. POSTERIOR FEMORAL OSTEOPHYTES WERE REMOVED FROM THE FEMORAL CONDYLES. A 71 TIBIAL TRIAL WAS PLACED IN ALIGNMENT WITH THE 1/3 MEDIAL ASPECT OF THE TIBIAL TUBERCLE. THEN A 65 FEMORAL TRIAL COMPONENT WAS PLACED. BOTH HAD EXCELLENT FITS. EVENTUALLY A 10 MM CR POLYETHYLENE TRIAL COMPONENT WAS PLACED. THE KNEE WAS TAKEN THROUGH A RANGE OF MOTION. THE KNEE CAME OUT TO FULL EXTENSION. THERE WAS NO ABNORMAL TILT TO THE PATELLA. THERE WAS GOOD A/P AND VARUS/VALGUS STABILITY. THERE WAS NO EXCESSIVE ROLL BACK WITH FLEXION. THE TRIAL COMPONENTS WERE REMOVED. THEN A 65 FEMORAL COMPONENT AND 71 TIBIAL COMPONENT WITH A 10 CR POLYETHYLENE COMPONENT WERE CEMENTED INTO PLACE. ONCE THE CEMENT WAS HARD THE KNEE WAS TAKEN THROUGH A ROM AGAIN AND FOUND TO BE STABLE WITH NO PATELLA TILT NO EXCESSIVE ROLL BACK WITH FLEXION AND GOOD STABILITY WITH COMPLETE AND FULL EXTENSION. THE KNEE WAS IRRIGATED WITH STERILE BETADINE AND WATER FOR ABOUT 3 MINUTES. THE BLEEDERS WERE CAUTERIZED. THE ARTHROTOMY WAS REPAIRED WITH NUMBER 1 VICRYL. THE SUB CUTANEOUS LAYER WITH 2-0 VICRYL AND THE SKIN WITH GUILLERMO. THE WOUND WAS WASHED AND A STERILE DRESSING WAS APPLIED. PATIENT WAS EXTUBATED. Estimated Blood Loss -75.0 Pathology None sent Complications No immediate complications Condition Stable Disposition PACU
--- NOTE | 2023-05-30 11:44 | ADMGEN ---
This patient, Shania Walden, was admitted to [facility] Surg Room 331-02. Patient/family oriented to hospital policies and general routines including ID bracelet, bed and alarms, visiting hours, pain management, procedures, bathroom and other care routines, personal items, smoking policy, room service/diet, and visiting hours. Information on how to activate the Rapid Response Team has been discussed. Patient/Family are encouraged to report perceived risks to care and to ask questions if they do not understand what they are told or what they should do.
[2023-05-30] MEDS: oxyCODONE/ACETAMINOPHEN (*CRX) 5-325 MG TABLET 2 TABLET PO ×2 (14:58→21:11)
[2023-05-30] MEDS: CALCIUM CARBONATE (OSCAL) 500 MG TABLET PO (17:32)
[2023-05-30] MEDS: RIVAROXABAN 10 MG TABLET PO (17:33)
[2023-05-30] MEDS: SENNA/DOCUSATE SODIUM TABLET 2 TAB PO (17:33)
[2023-05-30] MEDS: FAMOTIDINE 20 MG TABLET 40 MG PO (17:33)
[2023-05-31 00:01] VITALS: BP 129/74; PULSE 62; RESP 16; TEMP 36.6; O2SAT 96
[2023-05-31] MEDS: ceFAZolin 2 GM/D5W 50 ML 2 GM/50 ML BAG IVPB ×2 (00:22→09:11)
[2023-05-31 03:18] VITALS: BP 169/55; PULSE 68
[2023-05-31] MEDS: oxyCODONE/ACETAMINOPHEN (*CRX) 5-325 MG TABLET 2 TABLET PO ×3 (03:36→14:11)
[2023-05-31 05:05] VITALS: BP 139/45; PULSE 62; RESP 16; TEMP 36.6; O2SAT 92
[2023-05-31 06:34] LABS: Basophils Percent Auto 0.2 % (0.2-1.2); Eosinophils Percent Auto 0.3 % (0-4.4); Hematocrit 30.5 % (37.0-47.0); Hemoglobin 9.6 g/dL (12.0-15.0); Immature Granulocyte Absolute 0.03 K/mm3 (0.00-0.031); Immature Granulocyte Percent A 0.3 % (0-0.5); Lymphocytes Absolute Auto 1.33 K/mm3 (0.9-3.2); Lymphocytes Percent Auto 13.3 % (18.3-44.2); Mean Corpuscular HGB Conc 31.5 g/dl (32-36); Mean Corpuscular Hemoglobin 32.7 pg (26-34); Mean Corpuscular Volume 103.7 fl (80-100); Mean Platelet Volume 9.4 fl (7.4-10.4); Monocytes Absolute Auto 0.8 K/mm3 (0.1-0.6); Neutrophils Absolute Auto 7.8 K/mm3 (1.3-6.7); Neutrophils Percent Auto 77.9 % (45.5-73.1); Platelet Count Result 159 k/mm3 (150-375); Red Blood Count 2.94 M/mm3 (4.2-5.4); Red Cell Distribution Width 13.3 % (11.5-14.5)
[2023-05-31 06:42] LABS: Anion Gap 3 mmol/L (8-16); Blood Urea Nitrogen 33 mg/dL (7-17); Calcium 7.9 mg/dL (8.4-10.2); Carbon Dioxide 28 mmol/L (22-30); Chloride 102 mmol/L (98-107); Estimated CRCL calculation 36 ml/min; Estimated Glomerular Filt Rate 48; Glucose 107 mg/dL (65-110); Potassium 4.2 mmol/L (3.4-5.0); Sodium 133 mmol/L (137-145)
[2023-05-31] MEDS: SENNA/DOCUSATE SODIUM TABLET 2 TAB PO (09:06)
[2023-05-31] MEDS: lisinopriL 10 MG TABLET 30 MG PO (09:07)
[2023-05-31] MEDS: NEBIVOLOL HCL 5 MG TABLET 10 MG PO (09:08)
[2023-05-31] MEDS: FAMOTIDINE 20 MG TABLET 40 MG PO (09:09)
[2023-05-31] MEDS: CHOLECALCIFEROL 1,000 UNITS TABLET 2000 UNITS PO (09:09)
[2023-05-31] MEDS: CALCIUM CARBONATE (OSCAL) 500 MG TABLET PO (09:12)
[2023-05-31] MEDS: SPIRONOLACTONE 25 MG TABLET PO (09:12)
[2023-05-31] MEDS: LUBIPROSTONE 24 MCG CAPSULE PO (09:12)
[2023-05-31 10:09] VITALS: O2SAT 93
--- NOTE | 2023-05-31 11:05 | PM.PNORT ---
Progress Note: A&P Assessment and Plan (1) Right knee DJD: Code(s): M17.11 - Unilateral primary osteoarthritis, right knee Status: Acute Assessment and Plan: POD 1 DOING WELL. GOOD PROGRESS WITH PT. SHE WILL BE DISCHARGED TO HOME TODAY. SHE WILL F/U IN 3 WEEKS. Subjective Subjective Date/Time Seen: 05/31/23 11:05 Interval history: POD 1 DOING WELL. NO CALF PAIN Exam Extrem: Other: VSS AFEBRILE DRESSING DRY NV INTACT NEG HOMANS SIGN, CALF SOFT NON TENDER, THIGH SOFT NON TENDER. Objective Data Vital Signs Vital Signs: Vital Signs - 24 hr 05/30/23 11:15 05/30/23 12:48 05/30/23 11:35 Temperature 36.2 C L Pulse Rate 70 71 Respiratory Rate 13 16 Blood Pressure 146/51 H 130/68 Pulse Oximetry 95 97 Oxygen Delivery Room Air Room Air 05/30/23 11:50 05/30/23 12:20 05/30/23 13:20 Temperature 36.2 C L 36.3 C L 36.3 C L Pulse Rate 66 66 69 Respiratory Rate 16 16 18 Blood Pressure 158/60 H 144/53 H 163/58 H Pulse Oximetry 100 100 100 Oxygen Delivery 05/30/23 17:20 05/30/23 21:04 05/30/23 22:49 Temperature 35.9 C L 36.3 C L Pulse Rate 51 L 63 Respiratory Rate 16 16 Blood Pressure 137/49 L 184/62 H 127/47 L Pulse Oximetry 100 96 Oxygen Delivery 05/31/23 00:01 05/31/23 03:18 05/31/23 05:05 Temperature 36.6 C 36.6 C Pulse Rate 62 68 62 Respiratory Rate 16 16 Blood Pressure 129/74 169/55 H 139/45 L Pulse Oximetry 96 92 Oxygen Delivery 05/31/23 10:09 05/31/23 09:10 Temperature Pulse Rate Respiratory Rate Blood Pressure Pulse Oximetry 93 Oxygen Delivery Room Air Room Air Intake/Output Intake/Output: Intake & Output 05/28/23 05/29/23 05/30/23 05/31/23 23:59 23:59 23:59 23:59 Intake Total 810 390 Output Total 0 Balance 810 390 Meds/Results Medications: Active Medications Generic Name Dose Route Start Last Admin Trade Name Freq PRN Reason Stop Dose Admin Acetaminophen 1,000 mg 05/30/23 11:20 Acetaminophen 500 Mg Tablet PO Q6H PRN Pain Rated 1-3 Albuterol 2 puff 05/30/23 11:20 Albuterol Sulfate (*Sp) Aerosol 1 Puff INHALATION Q4H PRN shortness of breath or wheezing Calcium Carbonate 500 mg 05/30/23 17:00 05/31/23 09:12 Calcium Carbonate (Oscal) 500 Mg Tablet PO 500 mg BID [facility] Administration Diazepam 5 mg 05/30/23 11:20 Diazepam (*Crx) 5 Mg Tablet PO Q8H PRN Spasms Diphenhydramine HCl 25 mg 05/30/23 11:20 Diphenhydramine Hcl Inj 50 Mg/Ml Vial IV PUSH Q6H PRN Itching Famotidine 40 mg 05/30/23 17:00 05/31/23 09:09 Famotidine 20 Mg Tablet PO 40 mg BID [place] Administration Furosemide 20 mg 05/31/23 06:30 05/31/23 06:05 Furosemide 20 Mg Tablet PO Not Given 0630,1100 [facility] Lisinopril 30 mg 05/31/23 09:00 05/31/23 09:07 Lisinopril 10 Mg Tablet PO 30 mg QAM [facility] Administration Lubiprostone 24 mcg 05/31/23 09:00 05/31/23 09:12 Lubiprostone 24 Mcg Capsule PO 24 mcg DAILY [place] Administration Miscellaneous Information 0 each 05/30/23 00:01 Nucynta Er 100mg Is Non-Formulary. XX 06/29/23 00:00 CLARIFY [facility] Miscellaneous Information 0 each 05/30/23 00:01 Where Are We To Apply Triamcinolone Cream? XX 06/29/23 00:00 CLARIFY [facility] Naloxone HCl 0.1 mg 05/30/23 11:20 Naloxone Hcl 0.4 Mg/Ml Vial IV PUSH Q2M PRN Opiate Reversal Nebivolol 10 mg 05/31/23 09:00 05/31/23 09:08 Nebivolol Hcl 5 Mg Tablet PO 10 mg DAILY [facility] Administration Non-Formulary Medication 99 mg 05/31/23 09:00 Potassium PO 06/30/23 08:59 DAILY [facility] Non-Formulary Medication 100 mg 05/30/23 17:00 Tapentadol [Nucynta Er] PO 06/29/23 16:59 BID [facility] Ondansetron HCl 4 mg 05/30/23 11:20 Ondansetron Inj 4 Mg/2 Ml Vial IV PUSH Q4H PRN Nausea And Vomiting Oxycodone/Acetaminophen 1 tablet 05/30/23 11:20 Oxycodone/Acetaminophen (*Crx) 5-325 Mg Tablet PO
--- NOTE | 2023-05-31 12:46 | PM.DS ---
DS: Admitting Diagnosis Discharge Date 05/31/23 Admitting Diagnosis RIGHT KNEE DJD DS: Discharge Diagnosis Discharge Diagnosis (1) Right knee DJD: Code(s): M17.11 - Unilateral primary osteoarthritis, right knee Status: Acute DS: Summary Hospital Course Reason for hospitalization: R TKA Hospital Course: PATIENT WAS ADMITTED S/P TOTAL [] ARTHROPLASTY FOR POSTOPERATIVE MEDICAL MANAGEMENT, PAIN CONTROL AND MOBILIZATION WITH PHYSICAL AND OCCUPATIONAL THERAPY. THE PATIENT PROGRESSED WELL WITH PT/OT. LABS AND VITALS REMAINED STABLE AND PAIN WELL CONTROLLED. THE PATIENT HAS BEEN CLEARED TO BE DISCHARGED []. FOLLOW UP APPOINTMENT SCHEDULED. DISCHARGE INSTRUCTIONS DISCUSSED AT LENGTH WITH THE PATIENT. MEDICATIONS REVIEWED. Status at Discharge Cognitive/behavioral status at discharge: STABLE Time Spent with Patient Time attestation: Total time spent providing and/or coordinating discharge services: DS: Data Data Completed and Pending Labs on day of discharge: Labs from last 24 hours 05/31/23 05:57 WBC 10.0 RBC 2.94 L Hgb 9.6 L Hct 30.5 L MCV 103.7 H MCH 32.7 MCHC 31.5 L RDW 13.3 Plt Count 159 MPV 9.4 Immature Gran % (Auto) 0.3 Neut % (Auto) 77.9 H Lymph % (Auto) 13.3 L [place] % (Auto) 8.0 Eos % (Auto) 0.3 Baso % (Auto) 0.2 Lymph # (Auto) 1.33 [place] # (Auto) 0.8 H Eos # (Auto) 0.0 Baso # (Auto) 0.0 Abs Immat Gran (auto) 0.03 Absolute Neuts (auto) 7.8 H Absolute Nucleated RBC 0.0 Nucleated RBC % 0.0 Sodium 133 L Potassium 4.2 Chloride 102 Carbon Dioxide 28 Anion Gap 3 L BUN 33 H D Creatinine 1.10 H Estim Creat Clear Calc 36 Estimated GFR 48 L Glucose 107 Calcium 7.9 L Procedures/Treatments: R TKA Discharge Plan Discharge Patient Disposition: Home Health Service Discharge Instructions: Post Op Total Knee Replacement Instructions Dr. Rob Killian [phone] Your dressing will be changed prior to your discharge. You will be sent home with one additional dressing to be changed on post op day 7 by the home health RN. Your laura will be removed on the 14th day after surgery and steri-strips will be placed. Please practice good hand hygiene and do not touch your incision in order to prevent infection. You may shower with your dressing but do not submerge in a bath tub. Do not drive or operate machinery until you are released by Dr. Killian. Do not walk without a walker for any reason until you are released by Dr. Killian. Continue to use your ice machine. Please use a towel or pillow case to protect your skin before applying your ice machine. Do NOT place a pillow under your knee. You may use a pillow from the calf down if needed. This will prevent a flexion contracture postoperatively. You may begin use of your CPM machine at home if you have been given one pre-operatively. DO NOT USE WHILE YOU ARE SLEEPING. Your first post op appointment was sent to you via mail preoperatively. If you have any questions or are unable to make your appointment, please contact our office for scheduling questions. Your medications have been sent to your pharmacy. You have been sent home with pain medication. Please picker/puller an over the counter stool softener to prevent constipation due to narcotic use. Please keep this in mind during your postoperative recovery. If you are not experiencing regular bowel movements, please contact our office for further instruction. Resume home medication Xarelto as directed. Please contact our office with any questions/concerns regarding your knee at [phone]. Patient Instructions: Antibiotic Form Stand Alone Forms: General Discharge Instructions, General Discharge Information Follow-up/Referrals: Rob Killian MD [Physician] - 06/19/23 9:15 am Discharge Medications: New oxycodone-acetaminophen [Percocet] 5-325 mg tablet 1 tablet PO Q6H PRN (Reason: pain) Qty: 30 0RF Xarelto 10 mg tablet 10 mg PO DAILY Q
[2023-05-31] MEDS: FUROSEMIDE 20 MG TABLET PO (13:04)
[2023-05-31 13:17] VITALS: BP 126/43; PULSE 64; RESP 16; TEMP 36.5; O2SAT 99
--- NOTE | 2023-05-31 13:39 | WPDANESPN ---
Anes - Prog Note Post-Op Date/Time: 05/31/23 13:39 Cardiovascular status: normal Respiratory status: normal Airway patency: baseline Mental status: baseline Post-Op hydration status: normal Vital Signs: Last Vital Signs Temp 36.6 C 05/31/23 05:05 Pulse 62 05/31/23 05:05 Resp 16 05/31/23 05:05 BP 139/45 L 05/31/23 05:05 Pulse Ox 93 05/31/23 10:09 O2 Del Method Room Air 05/31/23 10:09 O2 Flow Rate 8 05/30/23 10:30 Pain Score (VAS): 10 I/O: Intake & Output 05/30/23 05/31/23 05/31/23 23:59 07:59 15:59 Intake Total 440 150 480 Balance 440 150 480 Laboratory Tests 05/31/23 05:57 05/31/23 05:57 05/31/23 05:57 WBC 10.0 RBC 2.94 L Hgb 9.6 L Hct 30.5 L MCV 103.7 H MCH 32.7 MCHC 31.5 L RDW 13.3 Plt Count 159 MPV 9.4 Immature Gran % (Auto) 0.3 Neut % (Auto) 77.9 H Lymph % (Auto) 13.3 L [place] % (Auto) 8.0 Eos % (Auto) 0.3 Baso % (Auto) 0.2 Lymph # (Auto) 1.33 [place] # (Auto) 0.8 H Eos # (Auto) 0.0 Baso # (Auto) 0.0 Abs Immat Gran (auto) 0.03 Absolute Neuts (auto) 7.8 H Absolute Nucleated RBC 0.0 Nucleated RBC % 0.0 Sodium 133 L Potassium 4.2 Chloride 102 Carbon Dioxide 28 Anion Gap 3 L BUN 33 H D Creatinine 1.10 H Estim Creat Clear Calc 36 Estimated GFR 48 L Glucose 107 Calcium 7.9 L Post-procedural complaints: none Patient Feedback: Patient satisfied with anesthetic care. Other Findings: patient reports her pain is well controlled with norco, but rated her pain as 8/10 while she was doing physical therapy in the AM.
== END 2023-05-31 14:30 | disposition home health service (06) ==
LOC: ANHSURGERY 06:09 → ANH3MEDSUR 11:23
PROVIDERS: PCP Family Medicine; Visit Provider Orthopaedic Surgery
PROC: (CPT 27447; principal; 2023-05-30 07:30)
DX: M17.11 Unilateral primary osteoarthritis, right knee (principal); I10 Essential (primary) hypertension; G25.81 Restless legs syndrome; I87.2 Venous insufficiency (chronic) (peripheral); E66.9 Obesity, unspecified; Z68.32 Body mass index [BMI] 32.0-32.9, adult; Z79.51 Long term (current) use of inhaled steroids; Z79.82 Long term (current) use of aspirin
CPT/HCPCS: 27447; 36415; 73560; 80048; 80307; 81003; 82040; 83036; 85025; 85610; 85730; 86850; 86900; 86901; 87081; 97110; 97116; 97161; 97165; 97530; 97535; A9270; C1713; C1776; J0171; J0690; J1100; J1170; J1885; J2250; J2270; J2405; J2704; J2795; J3010; J7120

== ENCOUNTER 2023-07-12 15:44 | Outpatient (CLI) | payer MEDICARE, SELFPAY ==
--- NOTE | ~2023-07-12 | US_ITS ---
US venous doppler LE RT DATE: 07/12/2023 16:23 INDICATION: Localized edema of right lower extremity TECHNIQUE: Real-time and color flow imaging and Doppler analysis of the veins of the right lower extr emity COMPARISON: 02/23/2023 bilateral lower extremity venous duplex examination, reported negative FINDINGS: The right greater saphenous vein is patent. There is spontaneous and phasic flow and normal augmentation and color flow signal and normal compression of the deep veins of the right lower extre mity. IMPRESSION: No evidence of deep venous thrombosis of right lower extremity Reviewed, dictated and finalized at Location [facility]. Reviewed, dictated and finalized at location B.
== END 2023-07-12 15:45 | disposition home or self-care (01) ==
PROVIDERS: PCP Family Medicine; Visit Provider Family Medicine
DX: R60.0 Localized edema (principal)
CPT/HCPCS: 93971

== ENCOUNTER 2023-11-15 10:02 | Outpatient (CLI) | payer MEDICARE, SELFPAY ==
--- NOTE | ~2023-11-15 | MM_ITS ---
EXAMINATION: MM screening ashish BI w pat HISTORY: Screening TECHNIQUE: Craniocaudal and mediolateral oblique 3-D tomosynthesis images were obtained and synthetic 2-D images were generated. CAD analysis was submitted and interpreted. COMPARISON: Comparison to multiple prior studies sequentially, with oldest reviewed study dated 05/09. BREAST PARENCHYMAL COMPOSITION: Not dense: There are scattered areas of fibroglandular density. FINDINGS: There has been slight interval increase in number and density of clustered masses in the lo wer central aspect of the left breast, middle third. The right breast is stable without evidence for malignancy. IMPRESSION: 1. Increasing number and density of clustered masses lower central left breast. 2. Additional mammographic views and possible breast ultrasound are recommended. BI-RADS Category 0: Incomplete: Needs additional imaging evaluation. Reviewed, dictated and finalized at location A. [employer] IMPRESSION: 1. Increasing number and density of clustered masses lower central left breast. 2. Additional mammographic views and possible breast ultrasound are recommended . BI-RADS Category 0: Incomplete: Needs additional imaging evaluation.
== END 2023-11-15 10:03 | disposition home or self-care (01) ==
LOC: ANHIMG 10:06
PROVIDERS: PCP Family Medicine; Visit Provider Family Medicine
DX: Z12.31 Encounter for screening mammogram for malignant neoplasm of breast (principal); R92.8 Other abnormal and inconclusive findings on diagnostic imaging of breast
CPT/HCPCS: 77063; 77067

== ENCOUNTER 2023-11-23 10:23 | Outpatient (CLI) | payer MEDICARE, SELFPAY ==
--- NOTE | ~2023-11-23 | MMUS_ITS ---
EXAMINATION: MM diagnostic ashish LT w pat, US breast LT limited HISTORY: Follow-up left breast masses TECHNIQUE: Additional 3-D tomosynthesis images of the left breast were performed and synthetic 2-D im ages were generated. CAD analysis was submitted and interpreted. High resolution Limited left breast ultrasound was performed. COMPARISON: Comparison to multiple prior studies sequentially, with oldest reviewed study dated 06/20. BREAST PARENCHYMAL COMPOSITION: Not dense: There are scattered areas of fibroglandular density. FINDINGS: MAMMOGRAPHIC FINDINGS: There are clustered small masses located in the lower central aspect of the left breast, middle third . These are slightly more prominent than on prior studies. ULTRASOUND: Limited left breast ultrasound: There are multiple cysts in the 5-6:00 location of the left breast co rresponding to the area of mammographic abnormality. There is a cluster of microcysts at 6:00, 2 cm f rom the nipple. No suspicious solid masses to suggest malignancy. IMPRESSION: 1. No evidence for malignancy in the left breast. Benign findings. 2. Routine yearly screening mammogram and regular clinical breast examination are recommended. BI-RADS Category 2: Benign finding(s). Reviewed, dictated and finalized at location A. TENANCE TECHNICIAN 3RD SHIFT IMPRESSION: 1. No evidence for malignancy in the left breast. Benign findings. 2. Routine yearly screening mammogram and regular clinical breast examination a re recommended. BI-RADS Category 2: Benign finding(s).
== END 2023-11-23 10:24 | disposition home or self-care (01) ==
PROVIDERS: PCP Family Medicine; Visit Provider Physician Assistant Medical
DX: R92.8 Other abnormal and inconclusive findings on diagnostic imaging of breast (principal)
CPT/HCPCS: 76642; 77061; 77065; G0279

== ENCOUNTER 2024-05-25 10:44 | Outpatient (CLI) | payer MEDICARE, SELFPAY ==
--- NOTE | ~2024-05-25 | MR_ITS ---
EXAMINATION: MR lumbar spine wo con DATE: 05/25/2024 11:36 INDICATION: Lumbar radiculopathy with low back pain, right buttock pain and bilateral leg pain. TECHNIQUE: Magnetic resonance imaging (MRI) of the lumbar spine was performed without intravenous con trast. Sequences included sagittal T2-weighted FSE, sagittal fluid sensitive FSE STIR , sagittal T1- weighted FSE, and axial T2-weighted FSE. COMPARISON: Lumbar spine MR dated 08/24/2021, CT dated 08/10 and MRI dated 04/06/2004 FINDINGS: 3 mm anterolisthesis L5 on S1. L2-L5 laminectomies and posterior spinal fusion with bilateral vertica l daylin and pedicle screw fixation at L2-L5. 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 There is anterior fusion across the left side of the L3-L4 disc space. Vertebral body heights are normal. Bone marrow signal is normal. Severe disc height loss at L2-L3 and L5-S1. Moderate disc height loss at L1-L2 and L4-L5. Mild disc height loss at T11-T12 and T12-L1. The conus medullaris te rminates at L2. There is normal signal in the caudal spinal cord. There is prominent fatty atrophy of the lumbar posterior paraspinal musculature. The following disc levels are specifically discussed: T12-L1: Disc is bulging. There is moderate bilateral facet joint osteoarthritis. There is mild left n eural foraminal stenosis. There is minimal central canal stenosis. L1-L2: Disc is bulging. There is moderate right and severe left facet joint osteoarthritis. There is mild right and minimal left neural foraminal stenosis. There is mild central canal stenosis. L2-L3: The disc does not extend beyond the endplate margin with small regions of likely developing fu niya across a small portions of the disc space margins. Mild facet joints are fused. There is mild ri ght neural foraminal stenosis. There is posterior decompression with no central canal stenosis. L3-L4: Likely prior discectomy fusion across the disc space. The facet joints are fused. There is min imal right neural foraminal stenosis. There is posterior decompression with no central canal stenosis . L4-L5: The disc does not extend beyond the endplate margin. Small region of developing fusion across the right posterior margin of the disc space. Facet joints are fused. There is mild left neural jose inal stenosis. There is posterior decompression with no central canal stenosis. L5-S1: Annular fissure with disc extrusion extending from foraminal zone to foraminal zone with disc material extending up to 4 mm cephalad to the level of the inferior endplate of L5. There is severe b ilateral facet joint osteoarthritis. There is moderate bilateral neural foraminal stenosis. There is moderate to severe central canal stenosis. IMPRESSION: 1. L2-L5 laminectomies and instrumented posterior spinal fusion. 2. Moderate spondylosis at L1-L2 and severe spondylosis at L5-S1 without significant interval change since the prior study. Reviewed, dictated and finalized at location A. IMPRESSION: 1. L2-L5 laminectomies and instrumented posterior spinal fusion. 2. Moderate spondylosis at L1-L2 and severe spondylosis at L5-S1 without signif icant interval change since the prior study.
== END 2024-05-25 10:45 ==
LOC: MICIMG 10:45
PROVIDERS: PCP Family Medicine; Visit Provider Nurse Practitioner Family
DX: M54.16 Radiculopathy, lumbar region (principal); Z98.1 Arthrodesis status; M43.06 Spondylolysis, lumbar region
CPT/HCPCS: 72148

== ENCOUNTER 2024-06-17 08:26 | Outpatient (CLI) | payer MEDICARE, SELFPAY ==
[2024-06-17 15:08] LABS: Alanine Aminotransferase 16 U/L (6-35); Alkaline Phosphatase 116 U/L (38-126); Anion Gap 4 mmol/L (4-12); Aspartate Amino Transferase 33 U/L (14-36); Basophils Percent Auto 0.5 % (0.2-1.2); Bilirubin,Total 0.7 mg/dL (0.2-1.3); Blood Urea Nitrogen 29 mg/dL (7-17); Calcium 8.7 mg/dL (8.4-10.2); Carbon Dioxide 30 mmol/L (22-30); Chloride 101 mmol/L (98-107); Cholesterol 167 mg/dL (0-200); Eosinophils Absolute Auto 0.3 K/mm3 (0-0.3); Eosinophils Percent Auto 4.6 % (0-4.4); Estimated Glomerular Filt Rate 39; Glucose 75 mg/dL (65-110); HDL Direct 37 mg/dL; Hematocrit 38.4 % (37.0-47.0); Hemoglobin 12.5 g/dL (12.0-15.0); Immature Granulocyte Absolute 0.02 K/mm3 (0.00-0.031); Immature Granulocyte Percent A 0.3 % (0-0.5); Iron 42 ug/dL (37-170); Lymphocytes Absolute Auto 0.73 K/mm3 (0.9-3.2); Lymphocytes Percent Auto 11.1 % (18.3-44.2); Mean Corpuscular HGB Conc 32.6 g/dl (32-36); Mean Corpuscular Hemoglobin 34.1 pg (26-34); Mean Corpuscular Volume 104.6 fl (80-100); Mean Platelet Volume 9.5 fl (7.4-10.4); Monocytes Absolute Auto 0.5 K/mm3 (0.1-0.6); Monocytes Percent Auto 7.9 % (2.6-8.5); Neutrophils Percent Auto 75.6 % (45.5-73.1); Platelet Count Result 220 k/mm3 (150-375); Red Blood Count 3.67 M/mm3 (4.2-5.4); Red Cell Distribution Width 13.7 % (11.5-14.5); Sodium 135 mmol/L (137-145); Triglycerides 87 mg/dL (<150); White Blood Count 6.6 K/mm3 (4.5-10.0)
[2024-06-17 15:13] LABS: LDL Cholesterol Direct 101 mg/dL
[2024-06-17 15:23] LABS: Percent Iron Saturation 14 % (20-50)
[2024-06-17 15:27] LABS: Hemoglobin A1C 5.2 % (<5.7)
== END 2024-06-17 08:27 | disposition home or self-care (01) ==
PROVIDERS: PCP Family Medicine; Visit Provider Family Medicine
DX: R53.83 Other fatigue (principal); D50.9 Iron deficiency anemia, unspecified; I10 Essential (primary) hypertension; R73.9 Hyperglycemia, unspecified; Z13.228 Encounter for screening for other metabolic disorders
CPT/HCPCS: 36415; 80053; 80061; 82728; 83036; 83540; 83550; 85025

== ENCOUNTER 2024-07-16 09:27 | Outpatient (CLI) | payer MEDICARE, SELFPAY ==
[2024-07-16 13:14] LABS: Anion Gap 5 mmol/L (4-12); Blood Urea Nitrogen 36 mg/dL (7-17); Calcium 8.8 mg/dL (8.4-10.2); Carbon Dioxide 27 mmol/L (22-30); Chloride 106 mmol/L (98-107); Estimated Glomerular Filt Rate 43; Glucose 93 mg/dL (65-110); Potassium 5.1 mmol/L (3.4-5.0); Sodium 138 mmol/L (137-145)
== END 2024-07-16 09:28 | disposition home or self-care (01) ==
PROVIDERS: PCP Family Medicine; Visit Provider Family Medicine
DX: Z13.228 Encounter for screening for other metabolic disorders (principal)
CPT/HCPCS: 36415; 80048

== ENCOUNTER 2024-08-15 09:55 | Outpatient (CLI) | payer MEDICARE, SELFPAY ==
--- NOTE | ~2024-08-15 | XR_ITS ---
EXAMINATION: XR lumbar spine min 4V DATE: 08/15/2024 10:15 INDICATION: Lumbar radiculopathy with low back pain radiating down the left leg into the left foot TECHNIQUE: Anteroposterior and lateral views of the lumbar spine, and cone-down lateral view of the l umbosacral junction were obtained. COMPARISON: CT dated 07/29/16 FINDINGS: Postoperative change of prior L3 and L4 laminectomies and instrumented L2-L5 posterior spinal fusion with bilateral vertical daylin and pedicle screw fixation. For millimeter anterolisthesis L5 on S1. Vert ebral body heights are normal. Severe disc height loss at L1-L2 through L3-L4 and moderate disc heigh t loss at L4-L5 and L5-S1. Mild bilateral hip and sacroiliac osteoarthritis. Atherosclerotic abdomina l aorta. IMPRESSION: 1. Moderate to severe lumbar spondylosis with L3 and L4 laminectomies and instrumented L2-L5 posterio r spinal fusion. No acute osseous abnormality. Reviewed, dictated and finalized at location B. IAC EXERCISE PHYSIOLOGIST IMPRESSION: 1. Moderate to severe lumbar spondylosis with L3 and L4 laminectomies and instr umented L2-L5 posterior spinal fusion. No acute osseous abnormality.
--- NOTE | ~2024-08-15 | MR_ITS ---
EXAMINATION: MR lumbar spine wo con DATE: 08/15/2024 10:54 INDICATION: Lumbar radiculopathy TECHNIQUE: Magnetic resonance imaging (MRI) of the lumbar spine was performed without intravenous con trast. Sequences included sagittal T2-weighted FSE, sagittal fluid sensitive FSE STIR, sagittal T1-we ighted FSE, and axial T2-weighted FSE. COMPARISON: 05/25/2024 FINDINGS: Unchanged 3 mm anterolisthesis L5 on S1. L3 and L4 laminectomies and partial L2 laminectomy. L2-L5 po sterior spinal fusion with bilateral vertical daylin and pedicle screw fixation. Again seen are chronic osteomyelitis at the left posterior margin of the L3 and L4 vertebral bodies which are without interv al change since 07/29/2016. Anterior fusion across the left side of the severely narrowed L3-L4 disc s pace. There are also bridging endplate osteophytes at the right side of the severely narrowed L2-L3 d isc space. Vertebral body heights are normal. There are fibrofatty degenerative endplate changes at t he severely narrowed L5-S1 disc space and along the right anterior inferior endplates of T12 and L1 m ild to moderate right-sided predominant disc height loss at T12-L1 and moderate to severe right-sided predominant disc height loss at L1-L2. Marrow signal is otherwise normal. Moderate disc height loss at L4-L5. The conus medullaris terminates at L2. There is normal signal in the caudal spinal cord. En d seen is prominent fatty atrophy of the lumbar posterior paraspinal musculature. The following disc levels are specifically discussed: T12-L1: Disc is bulging. There is hypertrophy of the ligamentum flavum. There is moderate right and severe left facet joint osteoarthritis. There is mild left neural foraminal stenosis. There is mild c entral canal stenosis. L1-L2: Disc is bulging. There is mild hypertrophy of the ligamentum flavum. There is moderate right and severe left facet joint osteoarthritis. There is mild bilateral neural foraminal stenosis. There is mild central canal stenosis. L2-L3: The disc does not extend beyond the endplate margin. Bilateral facet joints are fused. Posteri or decompression with partial L2 laminectomy. There is mild right neural foraminal stenosis. There is no central canal stenosis. L3-L4: Possible prior discectomy with fusion across the left side of the disc space. Bilateral facet joints are fused. There is minimal right neural foraminal stenosis. There is posterior decompression with no central canal stenosis. L4-L5: The disc does not extend beyond the endplate margin. There is fluid signal at the posterior as pect of the disc space suggesting possible prior partial discectomy. Bilateral facet joints are fused . There is mild left neural foraminal stenosis. There is significant decompression with no central ca nal stenosis. L5-S1: Annular fissure with disc extrusion extending from foraminal zone to foraminal zone with disc material extending up to 5 mm cephalad to the level of the inferior endplate of L5. There is severe b ilateral facet joint osteoarthritis. There is unchanged moderate bilateral neural foraminal stenosis. There is unchanged moderate to severe central canal stenosis. IMPRESSION: 1. No significant interval change in severe lumbar spondylosis with postoperative change of prior L3 and L4 laminectomies, partial L2 laminectomy, partial L3-L4 anterior spinal fusion and L2-L5 instrume nted posterior spinal fusion. Reviewed, dictated and finalized at location B. L TELEPHONE OPERATOR IMPRESSION: 1. No significant interval change in severe lumbar spondylosis with postoperati ve change of prior L3 and L4 laminectomies, partial L2 laminectomy, partial L3- L4 anterior spinal fusion and L2-L5 instrumented posterior spinal fusion.
== END 2024-08-15 09:56 | disposition home or self-care (01) ==
LOC: MICIMG 09:56
PROVIDERS: PCP Family Medicine; Visit Provider Nurse Practitioner Family
DX: M43.06 Spondylolysis, lumbar region (principal); Z98.1 Arthrodesis status
CPT/HCPCS: 72110; 72148

== ENCOUNTER 2024-08-27 08:28 | Outpatient (CLI) | payer MEDICARE, SELFPAY ==
[2024-08-27 13:19] LABS: Anion Gap 2 mmol/L (4-12); Blood Urea Nitrogen 34 mg/dL (7-17); Calcium 8.4 mg/dL (8.4-10.2); Carbon Dioxide 30 mmol/L (22-30); Chloride 105 mmol/L (98-107); Estimated Glomerular Filt Rate 47; Glucose 90 mg/dL (65-110); Potassium 4.8 mmol/L (3.4-5.0); Sodium 137 mmol/L (137-145)
== END 2024-08-27 08:29 | disposition home or self-care (01) ==
PROVIDERS: PCP Family Medicine; Visit Provider Family Medicine
DX: Z13.228 Encounter for screening for other metabolic disorders (principal)
CPT/HCPCS: 36415; 80048

== ENCOUNTER 2025-01-02 12:43 | Outpatient (CLI) | payer MEDICARE, SELFPAY ==
--- NOTE | ~2025-01-02 | MR_ITS ---
MRI of the thoracic spine Clinical History: Preoperative examination Technique: Axial T2-weighted and gradient images, and sagittal T1-weighted, T2-weighted, and STIR john ges were acquired. Findings: There is no fracture or subluxation of the thoracic spine. Vertebral bodies maintain normal height and alignment, aside from minimal levoscoliosis. There is multilevel mild to moderate degener ative disc narrowing at thoracic spine. No significant disc bulge or herniation seen at any level. No spinal canal stenosis or cord compression. There is mild to moderate facet arthropathy at the lower thoracic spine. Neural foramina are preserved throughout the thoracic spine. No abnormal signal seen in the spinal cord. Paravertebral soft tissues are unremarkable. Impression: Mild degenerative spondylosis overall, as above. Reviewed, dictated and finalized at location . Impression: Mild degenerative spondylosis overall, as above.
== END 2025-01-02 12:44 | disposition home or self-care (01) ==
LOC: MICIMG 12:46
PROVIDERS: PCP Student in an Organized Health Care Education/Training Program; Visit Provider Pain Medicine Pain Medicine
DX: Z01.818 Encounter for other preprocedural examination (principal); M47.814 Spondylosis without myelopathy or radiculopathy, thoracic region
CPT/HCPCS: 72146

== ENCOUNTER 2025-01-06 10:00 | Outpatient (CLI) | payer MEDICARE, SELFPAY ==
--- NOTE | ~2025-01-06 | MM_ITS ---
EXAMINATION: MM screening ashish BI w pat HISTORY: Screening TECHNIQUE: Craniocaudal and mediolateral oblique 3-D tomosynthesis images were obtained and synthetic 2-D images were generated. CAD analysis was submitted and interpreted. COMPARISON: Comparison to multiple prior studies sequentially, with oldest reviewed study dated 07/26. BREAST PARENCHYMAL COMPOSITION: Not Dense: The breasts are almost entirely fatty. FINDINGS: There is no evidence of suspicious mass, calcification, or architectural distortion to sugg est malignancy in either breast. There has been no suspicious interval change. IMPRESSION: 1. No mammographic evidence of malignancy. 2. Recommend routine screening mammography in one year. BI-RADS Category 1: Negative Reviewed, dictated and finalized at location B.
--- OUTSIDE RECORDS SUMMARY | 2025-01-06 11:08 | XMS_ITS | Clinical Summary ---
Author Organization [facility] [place] [address] Address [address] [place] [address] Care Team Providers Care Customer Advisor Specialist Name Role Phone Jes Zaragoza DO Primary Care Provider + Allergies Active Allergy Reactions Criticality Noted Date Comments Penicillins Hives Medium 03/15/2020 Sulfa (Sulfonamide Antibiotics) Other (See comments) Low 03/15/2020 causes crystals in bladder Medications Bystolic 10 mg tablet daily 0 Active furosemide (LASIX) 40 mg tablet TK 1 T PO QAM 0 Active hydrALAZINE (APRESOLINE) 50 mg tablet Take 50 mg by mouth 2 (two) times a day 0 Active famotidine (PEPCID) 40 mg tablet daily 0 Active spironolactone (ALDACTONE) 25 mg tablet daily 0 Active HYDROcodone-karla taminophen (NORCO) 10-325 mg per tablet TK 1 T PO Q 6 H PRN 0 Active lidocaine (LIDODERM) 5 % APPLY 1 PATCH QD. REMOVE AFTER 12 HOURS 0 Active lisinopriL (PRINIVIL,ZESTR IL) 40 mg tablet daily 0 Active aspirin 81 mg enteric coated tablet Take 1 tablet (81 mg total) by mouth daily Active docusate sodium (STOOL SOFTENER ORAL) Take by mouth daily as needed Active vit A/vit C/vit E/zinc/copper (PRESERVISION AREDS ORAL) Take by mouth Acti ve tetrahydroz/dex t 70/peg 400/pv (EYE DROPS ADVANCED RELIEF OPHT) Administer into affected eye(s) Active Nucynta ER 50 mg 12 hr tablet Take 1 tablet (50 mg total) by mouth 2 (two) times a day 2 Active lubiprostone (AMITIZA) 24 mcg capsule Take 1 capsule (24 mcg total) by mouth 2 (two) times a day 2 Active albuterol HFA (PROVENTIL HFA,VENTOLIN HFA,PROAIR HFA) 90 mcg/actuation inhaler INHALE 2 PUFFS BY MOUTH EVERY 4 HOURS NEEDED FOR SHORTNESS OF BREATH OR WHEEZING 3 Active calcipotriene-b etamethasone (TACLONEX) ointment 3 Active rOPINIRole XL (REQUIP XL) 4 mg 24 hr tablet Take 1 tablet (4 mg total) by mouth 2 (two) times a day 2 Active celecoxib (CeleBREX) 200 mg capsule Take 1 capsule (200 mg total) by mouth 2 (two) times a day 3 Active Farxiga 10 mg tablet Take 1 tablet (10 mg total) by mouth daily 3 Active oxyCODONE-aceta minophen (PERCOCET) 5-325 mg per tablet Take by mouth every 6 (six) hours as needed 3 Active cholecalciferol (VITAMIN D-3) 2000 unit tablet Active calcium carbonate-vitam in D3 1,500 mg (600 mg elemental)-400 unit capsule Take by mouth Act isabella triamcinolone (KENALOG) 0.1 % cream Apply topically 2 (two) times a day Active Active Problems Problem Noted Date Diagnosed Date Primary hypertension 08/10/2023 Assessment & Plan (08/10/2023 2:50 PM HOURLY TEAM MEMBERS): Impression: Chronic and stable. Plan: Continue lisinopril and hydralazine Chronic back pain 06/22/2022 Impaired fasting glucose 06/22/2022 Resistant hypertension 06/22/2022 Assessment & Plan (02/01/2023 9:36 AM CDT): Continue Bystolic 10 mg. Lasix 40 mg. Assessment & Plan (06/22/2022 9:53 AM CDT): Continue Lasix and hydralazine Restless leg syndrome 06/22/2022 Bilateral carotid artery stenosis 06/22/2022 Assessment & Plan (02/15/2024 1:06 PM CDT): Bilateral carotid stenosis nonprogressive patient remains asymptomatic. Plan: Follow-up in 1 year for routine surveillance with carotid duplex. Assessment & Plan (08/10/2023 2:52 PM HOURLY TEAM MEMBERS): Impression: Stable moderate bilateral carotid stenosis and remains asymptomatic. Plan: Continue ongoing risk factor modification. -continue aspirin. -recommend statin therapy -follow-up in 6 months for re-evaluation with repeat carotid duplex Assessment & Plan (02/01/2023 9:38 AM CDT): Moderate 50-69% stenosis of bilateral internal carotid arteries. Discussed recommendations for intervention once it reaches 80% or if she becomes symptomatic. Continue risk factor modification with ASA, recommend statin therapy. Follow-up in 6 months with repeat duplex. Assessment & Plan (06/22/2022 9:53 AM CDT): Asymptomatic moderate 50-69% stenosis of the left internal carotid artery. We discussed the management options for carotid artery stenosis with surgical intervention recommended for 80% stenosis or greater or if she becomes symptomatic. Continue risk factor modification with ASA, good blood pressure control, recommend statin therapy. We discussed the importance of lifelong surveillance, will follow-up in 6 months with repeat carotid duplex. Immunizations Immunization Administration Dates Next Due Influenza, Trivalent, High D ose, Split, Preservative Free, Intramuscular 06/20/2019,06/05/2018,06/28/2017,06/06,06/21/2015 Influenza, Trivalent, IM (MDV) 06/10/2014,2012 Pneumococcal Conjugate PCV 13 06/21/2015 Tdap 06/28/2017 Family History Medical History Relation Name Comments Heart failure Father Hypertension Maternal Grandmother Stroke Maternal Grandmother Hypertension Mother Stroke Mother Hypertension Sister Relation Name Status Comments Father Maternal Grandmother Mother Sister Social History Tobacco Use Types Packs/Day Years Used Date Smoking Tobacco: Never Tobacco Cessation:Counseling Given: Not Answered Personal Safety Answer Date Recorded Getting School Help Needed Not on file 09/19 Comments Unknown Sex and Gender Information Value Date Recorded Sex Assigned at Not on file Legal Sex Female 1:45 PM HOU[employer]Y TEAM MEMBERS Gender Identity Not on file Sexual Orientation Not on file Obstetrics History Last Filed Vital Signs Vital Sign Reading Time Taken Comments Blood Pressure 198/74 02/14/2024 10:22 AM CDT Pulse 90 02/14/2024 10:22 AM CDT Temperature 36 C (96.8 F) 06/23/2020 10:28 AM CDT Respiratory Rate - - Oxygen Saturation 95% 02/14/2024 10:22 AM CDT Inhaled Oxygen Concentration - - Weight 77.1 kg (170 lb) 08/09/2023 2:19 PM HOU[employer]Y TEAM MEMBERS Height 160 cm (5' 3 ) 08/09/2023 2:19 PM HOURLY TEAM MEMBERS Body Mass Index 30.11 08/09/2023 2:19 PM HOURLY TEAM MEMBERS Plan of Treatment Health Maintenance Due Date Last Done Comments Depression Screening 1941 Fall Risk Assessment 1941 Osteoporosis Screening-Bone Density Scan 1941 Hepatitis B Screening 1959 Zoster Vaccine (1 of 2) 1991 Well Visit 65+ 2006 Pneumococcal vaccine 65+ (2 of 2 - PPSV23) 06/21/2016 06/21/2015 Influenza Vaccine (Season Ended) 2025 06/20/2019, 06/05/2018, 06/28/2017, Additional history exists DTaP/Tdap/Td Vaccine (2 - Td or Tdap) 06/28/2027 06/28/2017 Insurance [employer] MEDICARE ADVANTAGE [facility] MEDICARE Address: [address] [address] [place] [address] [facility] [place] [address] [place] [address] MEDICARE Care Teams Customer Advisor Specialist Relationship Specialty Start Date End Date Jes Zaragoza DO [address] [place] [id number] PCP - General Family Medicine 06/23/20
--- OUTSIDE RECORDS SUMMARY | 2025-01-06 11:08 | XMS_ITS | Referral Summary ---
Author Organization [facility] [place] [address] Address [address] [place] [address] Care Team Providers Care Floral Arranger Name Role Phone Jes Zaragoza DO Primary [...] 08/10/2023 Assessment & Plan (08/10/2023 2:50 PM GREY GOODS MARKER): Impression: Chronic and stable. Plan: Continue lisinopril [...] duplex. Assessment & Plan (08/10/2023 2:52 PM GREY GOODS MARKER): Impression: Stable moderate bilateral carotid stenosis and [...] Pneumococcal Conjugate PCV 13 06/21/2015 Tdap 06/28/2017 Social History Tobacco Use Types Packs/Day Years Used Date Smoking Tobacco: Never Tobacco Cessation:Counseling Given: Not Answered Personal Safety Answer Date Recorded Getting School Help Needed Not on file 09/19 Comments Unknown Sex and Gender Information Value Date Recorded Sex Assigned at Not on file Legal Sex Female 1:45 PM GREY GOODS MARKER Gender Identity Not on file Sexual Orientation Not on file Last Filed Vital Signs Vital Sign Reading Time Taken Comments Blood Pressure 198/74 02/14/2024 10:22 AM CDT Pulse 90 02/14/2024 10:22 AM CDT Temperature 36 C (96.8 F) 06/23/2020 10:28 AM CDT Respiratory Rate - - Oxygen Saturation 95% 02/14/2024 10:22 AM CDT Inhaled Oxygen Concentration - - Weight 77.1 kg (170 lb) 08/09/2023 2:19 PM GREY GOODS MARKER Height 160 cm (5' 3 ) 08/09/2023 2:19 PM GREY GOODS MARKER Body Mass Index 30.11 08/09/2023 2:19 PM GREY GOODS MARKER Plan of Treatment Not on file Insurance [place] [address] [facility] MEDICARE [employer] MEDICARE Care Teams Floral Arranger Relationship Specialty Start Date End Date Jes Zaragoza DO [address] [place] [id number] PCP - General Family Medicine 06/23/20
--- OUTSIDE RECORDS SUMMARY | 2025-01-06 11:08 | XMS_ITS | Clinical Summary ---
Author Organization [facility] Address [address] [place] [phone] Phone Care Team Providers Care Veterinary X Ray Operator Name Role Phone Jes Zaragoza MD Primary Care Provider [phone] Allergies Active Allergy Reactions Criticality Noted Date Comments Penicillins Hives 03/15/2020 Sulfa Antibiotics Other (see comments) 03/15/20 causes crystals in bladder Medications BYSTOLIC 10 MG tablet 03/04/2020 Active famotidine (PEPCID) 40 MG tablet 01/26/2020 Active lisinopril (PRINIVIL,ZESTRI L) 40 MG tablet 03/09/2020 Act isabella HYDROcodone-acet aminophen (LORCET PLUS) 10-325 MG per tablet TK 1 T PO Q 6 H PRN 03/09/2020 Active spironolactone (ALDACTONE) 25 MG tablet TK 1 T PO D 03/04/2020 Active hydrALAZINE (APRESOLINE) 50 MG tablet Take 1 tablet (50 mg total) by mouth 2 (two) times a day 60 tablet 3 04/15/2020 Active lidocaine (LIDODERM) 5 % patch APPLY 1 PATCH QD. REMOVE AFTER 12 HOURS 04/02/2020 Active loteprednol (LOTEMAX) 0.5 % ophthalmic suspension SHAKE LQ AND INT 1 GTT IN OU BID 04/14/2020 Active furosemide (LASIX) 40 MG tablet TK 1 T PO QAM 05/12/2020 Active Xtampza ER 9 MG capsule extended-release 12 hour 12/11/2020 Active rOPINIRole XL (REQUIP XL) 2 MG 24 hr tablet Take 2 mg by mouth 2 (two) times a day 12/02/2020 Active Active Problems Problem Noted Date Diagnosed Date Resistant hypertensive disorder Chronic back pain Impaired fasting glucose Restless leg syndrome Family History Medical History Relation Comments Hypertension Father Hypertension Mother Stroke Mother Relation Status Comments Father Mother Social History Tobacco Use Types Packs/Day Years Used Date Smoking Tobacco: Never Smokeless Tobacco: Never Alcohol Use Standard Drinks/Week Comments Never 0 (1 standard drink = 0.6 oz pur e alcohol) AUDIT-C Answer Date Recorded Frequency of Alcohol Consumption Never 03/15/2020 Average Number of Drinks Not on file 020 Frequency of Binge Drinking Not on file 02/24 Comments Unknown Sex and Gender Information Value Date Recorded Sex Assigned at Not on file Legal Sex Female 2:17 PM MDT Gender Identity Not on file Sexual Orientation Not on file Last Filed Vital Signs Vital Sign Reading Time Taken Comments Blood Pressure 148/78 12/14/2020 9:19 AM CDT Pulse - - Temperature 36.2 C (97.1 F) 12/14/2020 9:19 AM CDT Respiratory Rate 18 12/14/2020 9:19 AM CDT Oxygen Saturation - - Inhaled Oxygen Concentration - - Weight 78.5 kg (173 lb) 12/14/2020 9:19 AM CDT Height 157.5 cm (5' 2 ) 12/14/2020 9:19 AM CDT Body Mass Index 31.64 12/14/2020 9:19 AM CDT Plan of Treatment Health Maintenance Due Date Last Done Comments Pneumococcal PPSV23/PCV13 65 + Years / Low and Medium Risk (1 of 4 - PCV) 1991 Influenza Vaccine (Season Ended) 2025 Insurance [employer] MEDICARE Care Teams Veterinary X Ray Operator Relationship Specialty Start Date End Date Jes Zaragzoa MD [address] [place] [phone] PCP - General Family Medicine 06/15/20
== END 2025-01-06 10:01 | disposition home or self-care (01) ==
LOC: ANHIMG 10:03
PROVIDERS: PCP Student in an Organized Health Care Education/Training Program; Visit Provider Family Medicine
DX: Z12.31 Encounter for screening mammogram for malignant neoplasm of breast (principal)
CPT/HCPCS: 77063; 77067

== ENCOUNTER 2025-03-25 08:13 | Outpatient (CLI) | payer MEDICARE, SELFPAY ==
--- OUTSIDE RECORDS SUMMARY | 2025-03-25 08:17 | XMS_ITS | Referral Summary ---
Author Organization [facility] [address] Address [address] [place] [address] Care Team Providers Care Home Security Professional Name Role Phone Jes Zaragoza DO Primary Care Provider + Encounters Date Type Department Care Team Description 02/12/2025 Orders Only [facility] Medical Group Vascular at [address] [place] [phone] Henry Garcia MD Bilateral carotid artery stenosis (Primary Dx) 02/12/2025 9:15 AM CDT Office Visit [facility] Medical Group Vascular at [address] [place] [address] Henry Garcia MD Bilateral carotid artery stenosis (Primary Dx); Primary hypertension 02/03/2025 10:00 AM CDT Ancillary Procedure [facility] Vascular and Vein Surgery at [address] [place] [address] Bilateral carotid artery stenosis from Last 3 Months Allergies Active Allergy Reactions Criticality Noted Date [...] Date Primary hypertension 08/10/2023 Assessment & Plan (02/13/2025 12:32 PM CDT): Stable continue Lasix Assessment & Plan (08/10/2023 2:50 PM WIRE SAWYER): Impression: Chronic and stable. Plan: Continue lisinopril and hydralazine Chronic back pain 06/22/2022 Impaired fasting glucose 06/22/2022 Resistant hypertension 06/22/2022 Assessment & Plan (02/01/2023 9:36 AM CDT): Continue Bystolic 10 mg. Lasix 40 mg. Assessment & Plan (06/22/2022 9:53 AM CDT): Continue Lasix and hydralazine Restless leg syndrome 06/22/2022 Bilateral carotid artery stenosis 06/22/2022 Assessment & Plan (02/13/2025 12:32 PM CDT): Stable moderate 50-69% stenosis of bilateral internal carotid arteries. Continue risk factor modification with ASA statin therapy good blood pressure control. Follow up in 1 year with repeat carotid duplex. Assessment & Plan (02/15/2024 1:06 PM CDT): Bilateral carotid stenosis nonprogressive patient remains asymptomatic. Plan: Follow-up in 1 year for routine surveillance with carotid duplex. Assessment & Plan (08/10/2023 2:52 PM WIRE SAWYER): Impression: Stable moderate bilateral carotid stenosis and [...] Tobacco: Never Tobacco Cessation:Counseling Given: Not Answered Comments Unknown Sex and Gender Information Value Date Recorded Sex Assigned at Not on file Legal Sex Female 1:45 PM WIRE SAWYER Gender Identity Not on file Sexual Orientation Not on file Last Filed Vital Signs Vital Sign Reading Time Taken Comments Blood Pressure 185/70 02/12/2025 9:17 AM CDT Pulse 61 02/12/2025 9:17 AM CDT Temperature 36 C (96.8 F) 06/23/2020 10:28 AM CDT Respiratory Rate - - Oxygen Saturation 95% 02/12/2025 9:17 AM CDT Inhaled Oxygen Concentration - - Weight 77.1 kg (170 lb) 02/12/2025 9:17 AM CDT Height 160 cm (5' 3) 02/12/2025 9:17 AM CDT Body Mass Index 30.11 02/12/2025 9:17 AM CDT Plan of Treatment Not on file Procedures Procedure Name Priority Date/Time Associated Diagnosis Comments US CAROTIDS DUPLEX BILATERAL Schedule Routine, Read Routine (OP Routine) 02/03/2025 10:32 AM CDT Bilateral carotid artery stenosis from Last 3 Months Results * US Carotids Duplex Bilateral (02/03/2025 10:32 AM CDT) Anatomical Region Laterality Modality Vascular Bilateral Ultrasound 02/03/2025 9:59 AM CDT Narrative 02/05/2025 8:47 AM CDT Vascular & Vein Surgery [address] [facility] [place] [address] Carotid Duplex Ultrasound Report Patient Name: SHANIA JONES : 1940 (84y 9m) Study Date: 02/03/2025 9:59:55 AM Gender: F Disability Services Coordinator: MISTY Location: [facility] Ref Provider: ANTONIETTA RIGGS Quality: Adequate Order Provider: ANTONIETTA RIGGS PROCEDURES: Carotid Report: Carotid duplex examination of the extracranial arteries was performed using 2D, color and spectral Doppler. INDICATIONS: I65.23 Occlusion and stenosis of bilateral carotid arteries. HISTORY: HTN. COMPARISONS: No change compared to prior study. The previous exam was completed on 02/05/24: bilat 50-69. MEASUREMENTS: Right Value Left Value RT Prox CCA PSV 96 cm/sec LT Prox CCA PSV 96 cm/sec RT Prox CCA EDV 10 cm/sec LT Prox CCA EDV 9 cm/sec RT Distal CCA PSV 73 cm/sec LT Distal CCA PSV 66 cm/sec RT Distal CCA EDV 10 cm/sec LT Distal CCA EDV 11 cm/sec RT Prox ICA PSV 77 cm/sec LT Prox ICA PSV 69 cm/sec RT Prox ICA EDV 10 cm/sec LT Prox ICA EDV 11 cm/sec RT Mid ICA PSV 138 cm/sec LT Mid ICA PSV 142 cm/sec RT Mid ICA EDV 24 cm/sec LT Mid ICA EDV 25 cm/sec RT Distal ICA PSV 92 cm/sec LT Distal ICA PSV 178 cm/sec RT Distal ICA EDV 17 cm/sec LT Distal ICA EDV 25 cm/sec RT ECA Prx PSV 64 cm/sec LT ECA Prx PSV 56 cm/sec RT ICA/CCA 1.89 ratio LT ICA/CCA 2.70 ratio Rt Vert Dst PSV 97 cm/sec Lt Vert Dst PSV 100 cm/sec FINDINGS: Rt Common Carotid Artery: Duplex imaging of the right common carotid artery is within normal limits without evidence of atherosclerotic disease. Rt Internal Carotid Artery: The plaque in the right internal carotid artery appears to be heterogeneous and smooth. Significant atherosclerotic changes of the right internal carotid artery with elevated peak systolic velocity and end diastolic velocity, as above. 50-69% stenosis. Tortuous mid to distal. Rt External Carotid Artery: The right external carotid artery is patent without evidence of atherosclerotic plaque. Rt Vertebral Artery: The right vertebral artery is patent with antegrade flow. Lt Common Carotid Artery: Duplex imaging of the left common carotid artery is within normal limits without evidence of atherosclerotic disease. Lt Internal Carotid Artery: The plaque in the left internal carotid artery appears to be heterogeneous and smooth. Significant atherosclerotic changes of the left internal carotid artery with elevated peak systolic velocity and end diastolic velocity, as above. 50-69% stenosis. Tortuous mid to distal with kink/fold at mid. Lt External Carotid Artery: The left external carotid artery is patent without evidence of atherosclerotic plaque. Lt Vertebral Artery: The left vertebral artery is patent with antegrade flow. Comments: Brachial artery systolic blood pressure is 193 on the right, 205 on the left. CONCLUSIONS: 1. The right internal carotid artery disease is consistent with moderate 50-69% stenosis. 2. The left internal carotid artery disease is consistent with moderate 50-69% stenosis. 3. Normal, antegrade flow is noted in bilateral vertebral arteries. ATTESTATION: I have reviewed and interpreted the pertinent images and measurements of this study. I attest to the conclusions in the final report that is provided above. Electronically Signed By: Henry Garcia MD 02/05/2025 8:47:12 AM CDT Procedure Note Henry Garcia MD - 02/05/2025 Vascular & Vein Surgery [address] [facility] [place] [address] Carotid Duplex Ultrasound Report Patient Name: SHANIA JONES : 1940 (84y 9m) Study Date: 02/03/2025 9:59:55 AM Gender: F Disability Services Coordinator: Location: [facility] Ref Provider: ANTONIETTA RIGGS Quality: Adequate Order Provider: ANTONIETTA RIGGS PROCEDURES: Carotid Report: Carotid duplex examination of the extracranial arterieswas performed using 2D, color and spectral Doppler. INDICATIONS: I65.23 Occlusion and stenosis of bilateral carotid arteries. HISTORY: HTN. COMPARISONS: No change compared to prior study. The previous exam was completed on02/05/24: bilat 50-69. MEASUREMENTS: Right Value Left Value RT Prox CCA PSV 96 cm/sec LT Prox CCA PSV 96 cm/sec RT Prox CCA EDV 10 cm/sec LT Prox CCA EDV 9 cm/sec RT Distal CCA PSV 73 cm/sec LT Distal CCA PSV 66 cm/sec RT Distal CCA EDV 10 cm/sec LT Distal CCA EDV 11 cm/sec RT Prox ICA PSV 77 cm/sec LT Prox ICA PSV 69 cm/sec RT Prox ICA EDV 10 cm/sec LT Prox ICA EDV 11 cm/sec RT Mid ICA PSV 138 cm/sec LT Mid ICA PSV 142 cm/sec RT Mid ICA EDV 24 cm/sec LT Mid ICA EDV 25 cm/sec RT Distal ICA PSV 92 cm/sec LT Distal ICA PSV 178 cm/sec RT Distal ICA EDV 17 cm/sec LT Distal ICA EDV 25 cm/sec RT ECA Prx PSV 64 cm/sec LT ECA Prx PSV 56 cm/sec RT ICA/CCA 1.89 ratio LT ICA/CCA 2.70 ratio Rt Vert Dst PSV 97 cm/sec Lt Vert Dst PSV 100 cm/sec FINDINGS: Rt Common Carotid Artery: Duplex imaging of the right common carotidartery is within normal limits without evidence of atherosclerotic disease. Rt Internal Carotid Artery: The plaque in the right internal carotidartery appears to be heterogeneous and smooth. Significant atherosclerotic changes of the rightinternal carotid artery with elevated peak systolic velocity and end diastolicvelocity, as above. 50-69% stenosis. Tortuous mid to distal. Rt External Carotid Artery: The right external carotid artery is patentwithout evidence of atherosclerotic plaque. Rt Vertebral Artery: The right vertebral artery is patent with antegradeflow. Lt Common Carotid Artery: Duplex imaging of the left common carotid arteryis within normal limits without evidence of atherosclerotic disease. Lt Internal Carotid Artery: The plaque in the left internal carotid arteryappears to be heterogeneous and smooth. Significant atherosclerotic changes of the leftinternal carotid artery with elevated peak systolic velocity and end diastolicvelocity, as above. 50-69% stenosis. Tortuous mid to distal with kink/fold at mid. Lt External Carotid Artery: The left external carotid artery is patentwithout evidence of atherosclerotic plaque. Lt Vertebral Artery: The left vertebral artery is patent with antegradeflow. Comments: Brachial artery systolic blood pressure is 193 on the right, 205on the left. CONCLUSIONS: 1. The right internal carotid artery disease is consistent with zwdxfldi69-21% stenosis. 2. The left internal carotid artery disease is consistent with nwljqjid86-86% stenosis. 3. Normal, antegrade flow is noted in bilateral vertebral arteries. ATTESTATION: I have reviewed and interpreted the pertinent images and measurements ofthis study. I attest to the conclusions in the final report that is provided above. Electronically Signed By: Henry Garcia MD 02/05/2025 8:47:12 AM CDT us Antonietta Riggs OCCASIONAL BABYSITTER IMG US PROCEDURES Final Result from Last 3 Months Insurance [facility] MEDICARE [facility] Address: [address] [address] [place] [address] [facility] MEDICARE AET MEDICARE Care Teams Home Security Professional Relationship Specialty Start Date End Date Jes Zaragoza DO [address] [place] [address] PCP - General Family Medicine 06/23/20
--- OUTSIDE RECORDS SUMMARY | 2025-03-25 08:17 | XMS_ITS | Clinical Summary ---
Author Organization [facility] Address [address] [place] [address] Phone Care Team Providers Care [facility] Name Role Phone Jes Zaragoza MD Primary Care Provider [phone] Allergies Active Allergy Reactions Criticality Noted Date [...] 9:19 AM CDT Height 157.5 cm (5' 2) 12/14/2020 9:19 AM CDT Body Mass Index 31.64 12/14/2020 9:19 AM CDT Plan of Treatment Health Maintenance Due Date Last Done Comments Pneumococcal PPSV23/PCV13 65 + Years / Low and Medium Risk (1 of 2 - PCV) 1991 Influenza Vaccine (Season Ended) 2025 Insurance [employer] MEDICARE Care Teams [facility] Relationship Specialty Start Date End Date Jes Zaragoza MD [address] [place] [phone] PCP - General Family Medicine 06/15/20
--- OUTSIDE RECORDS SUMMARY | 2025-03-25 08:17 | XMS_ITS | Clinical Summary ---
Author Organization [facility] [address] Address [address] [place] [address] Care Team Providers Care Grassroots Organizer Name Role Phone Jes Zaragoza DO Primary [...] Lasix Assessment & Plan (08/10/2023 2:50 PM ROCKBOARD LATHER): Impression: Chronic and stable. Plan: Continue lisinopril [...] duplex. Assessment & Plan (08/10/2023 2:52 PM ROCKBOARD LATHER): Impression: Stable moderate bilateral carotid stenosis and [...] in 6 months with repeat carotid duplex. Encounters Date Type Department Care Team Description 02/12/2025 9:15 AM CDT Office Visit [facility] Vascular at [address] [place] [address] Henry Garcia MD Bilateral carotid artery stenosis (Primary Dx); Primary hypertension 02/12/2025 Orders Only [facility] Vascular at [address] [place] [address] Henry Garcia MD Bilateral carotid artery stenosis (Primary Dx) 02/03/2025 10:00 AM CDT Ancillary Procedure [facility] Vascular and Vein Surgery at [address] [place] [address] Bilateral carotid artery stenosis from Last 3 Months Immunizations Immunization Administration Dates Next Due Influenza, [...] on file Legal Sex Female 1:45 PM ROCKBOARD LATHER Gender Identity Not on file Sexual Orientation [...] 02/12/2025 9:17 AM CDT Plan of Treatment Health Maintenance [...] (2 - Td or Tdap) 06/28/2027 06/28/2017 Procedures Procedure Name Priority Date/Time Associated Diagnosis Comments US CAROTIDS DUPLEX BILATERAL Schedule Routine, Read Routine (OP Routine) 02/03/2025 10:32 AM CDT Bilateral carotid artery stenosis from Last 3 Months Results * US Carotids Duplex Bilateral (02/03/2025 10:32 AM CDT) Anatomical Region Laterality Modality Vascular Bilateral Ultrasound 02/03/2025 9:59 AM CDT Narrative 02/05/2025 8:47 AM CDT Vascular & Vein Surgery [place] [address] Carotid Duplex Ultrasound Report Patient Name: SHANIA JONES : 1940 (84y 9m) Study Date: 02/03/2025 9:59:55 AM Gender: F Jacquard Card Cutter: MISTY Location: [facility] Ref Provider: ANTONIETTA RIGGS Quality: Adequate [...] MD - 02/05/2025 Vascular & Vein Surgery [address] [place] [address] Carotid Duplex Ultrasound Report Patient Name: SHANIA JONES : 1940 (84y 9m) Study Date: 02/03/2025 9:59:55 AM Gender: F Jacquard Card Cutter: MISTY Location: [facility] Provider: ANTONIETTA RIGGS Quality: Adequate Order Provider: [...] internal carotid artery disease is consistent with xyoopugy04-61% stenosis. 2. The left internal carotid artery disease is consistent with hfxbcodo16-98% stenosis. 3. Normal, antegrade flow is noted in bilateral vertebral arteries. ATTESTATION: I have reviewed and interpreted the pertinent images and measurements ofthis study. I attest to the conclusions in the final report that is provided above. Electronically Signed By: Henry Garcia MD 02/05/2025 8:47:12 AM CDT us Antonietta Riggs NP IM US PROCEDURES Final Result from Last 3 Months Insurance [facility] Address: [address] [address] [place] [address] AET MEDICARE T MEDICARE Care Teams Grassroots Organizer Relationship Specialty Start Date End Date Jes Zaragoza DO [address] [place] [id number] PCP - General Family Medicine 06/23/20
[2025-03-25 15:42] LABS: Alanine Aminotransferase 15 U/L (6-35); Albumin Level 3.6 g/dL (3.5-5.1); Alkaline Phosphatase 103 U/L (38-126); Anion Gap 7 mmol/L (4-12); Aspartate Amino Transferase 44 U/L (14-36); Bilirubin,Total 0.5 mg/dL (0.2-1.3); Blood Urea Nitrogen 26 mg/dL (7-17); Calcium 8.7 mg/dL (8.4-10.2); Carbon Dioxide 27 mmol/L (22-30); Chloride 105 mmol/L (98-107); Estimated Glomerular Filt Rate 39; Glucose 73 mg/dL (65-110); Potassium 4.7 mmol/L (3.4-5.0); Sodium 139 mmol/L (137-145); Total Protein 6.8 g/dL (6.3-8.2)
[2025-03-25 16:28] LABS: Hematocrit 36.1 % (37.0-47.0); Hemoglobin 11.4 g/dL (12.0-15.0); Immature Granulocyte Percent A 0.3 % (0-0.5); Lymphocytes Absolute Auto 0.96 K/mm3 (0.9-3.2); Mean Corpuscular HGB Conc 31.6 g/dl (32-36); Mean Corpuscular Hemoglobin 32.7 pg (26-34); Mean Corpuscular Volume 103.4 fl (80-100); Nucleated Red Blood Cells Absolute Auto 0.000 K/mm3 (0.0-0.012); Nucleated Red Blood Cells Perc 0.0 % (0.0-0.2); Platelet Count Result 211 k/mm3 (150-375); Red Blood Count 3.49 M/mm3 (4.2-5.4); White Blood Count 7.0 K/mm3 (4.5-10.0)
== END 2025-03-25 08:14 | disposition home or self-care (01) ==
LOC: ANHGOSHLAB 08:14
PROVIDERS: PCP Student in an Organized Health Care Education/Training Program; Visit Provider Student in an Organized Health Care Education/Training Program
DX: I12.9 Hypertensive chronic kidney disease with stage 1 through stage 4 chronic kidney disease, or unspecified chronic kidney disease (principal); N18.31 Chronic kidney disease, stage 3a; I1A.0 Resistant hypertension
CPT/HCPCS: 36415; 80053; 85025

== ENCOUNTER 2025-05-12 12:02 | Outpatient (CLI) | payer MEDICARE, SELFPAY ==
--- OUTSIDE RECORDS SUMMARY | 2025-05-12 13:02 | XMS_ITS | Clinical Summary ---
Author Organization [facility] [place] [address] Address [address] [place] [address] Care Team Providers Care Cloak Room Attendant Name Role Phone Jes Zaragoza DO Primary [...] Lasix Assessment & Plan (08/10/2023 2:50 PM PRINT LINE TAILER): Impression: Chronic and stable. Plan: Continue lisinopril [...] duplex. Assessment & Plan (08/10/2023 2:52 PM PRINT LINE TAILER): Impression: Stable moderate bilateral carotid stenosis and [...] Description 02/12/2025 9:15 AM CDT Office Visit [facility] Medical Group Vascular at [address] [place] [phone] Henry Garcia MD Bilateral carotid artery stenosis (Primary Dx); Primary hypertension 02/12/2025 Orders Only [facility] Medical Group Vascular at [address] [place] [phone] Henry Garcia MD Bilateral carotid artery stenosis (Primary Dx) from Last 3 Months Immunizations Immunization Administration [...] on file Legal Sex Female 1:45 PM PRINT LINE TAILER Gender Identity Not on file Sexual Orientation [...] Pneumococcal vaccine 65+ (2 of 2 - PCV20 or PCV21) 06/21/2016 06/21/2015 Influenza Vaccine (#1) 2025 9, 06/05/2018, 06/28/2017, Additional history exists DTaP/Tdap/Td Vaccine (2 - Td or Tdap) 06/28/2027 06/28/2017 Insurance [facility] MEDICARE [facility] [employer] MEDICARE Care Teams Cloak Room Attendant Relationship Specialty Start Date End Date Jes Zaragoza DO [address] [place] [id number] PCP - General Family Medicine 06/23/20
--- OUTSIDE RECORDS SUMMARY | 2025-05-12 13:02 | XMS_ITS | Clinical Summary ---
Author Organization [facility] Address [address] [place] [address] Phone Care Team Providers Care Cloth Stock Sorter Name Role Phone Jes Zaragoza MD Primary Care Provider +1- [phone] Allergies Active Allergy Reactions Criticality Noted Date [...] of 2 - PCV) 1991 Influenza Vaccine (#1) 2025 Insurance [employer] MEDICARE Care Teams Cloth Stock Sorter Relationship Specialty Start Date End Date Jes Zaragoza MD [address] [place] [phone] PCP - General Family Medicine 06/15/20
--- NOTE | 2025-05-12 13:19 | ECG_ITS ---
Test Date: 2025-05-12 13:50:58 Measurements Intervals [place] Rate: 58 P: 28 AR: 212 QRS: -3 QRSD: 98 T: 29 QT: 430 QTc: 422 Interpretive Statements SINUS BRADYCARDIA WITH FIRST DEGREE AV BLOCK POOR R WAVE PROGRESSION BASELINE ARTIFACT- I, II, III, AVR, AVL, AVF, V1-V6 BORDERLINE ECG No previous ECG available for comparison Electronically Signed On 05-12-2025 13:58:41 CDT by Dieter Balderas D.O.
[2025-05-12 14:07] LABS: Hematocrit 39.5 % (37.0-47.0); Hemoglobin 12.8 g/dL (12.0-15.0); Mean Corpuscular HGB Conc 32.4 g/dl (32-36); Mean Corpuscular Hemoglobin 33.0 pg (26-34); Mean Corpuscular Volume 101.8 fl (80-100); Platelet Count Result 198 k/mm3 (150-375); Red Blood Count 3.88 M/mm3 (4.2-5.4); White Blood Count 7.4 K/mm3 (4.5-10.0)
[2025-05-12 14:27] LABS: INR 1.1; Partial Thromboplastin Time 34.1 Seconds (22.3-36.8); Prothrombin Time 14.1 Seconds (11.1-14.7)
[2025-05-12 14:36] LABS: Anion Gap 6 mmol/L (4-12); Blood Urea Nitrogen 17 mg/dL (7-17); Calcium 9.0 mg/dL (8.4-10.2); Carbon Dioxide 27 mmol/L (22-30); Chloride 105 mmol/L (98-107); Estimated Glomerular Filt Rate 45; Glucose 93 mg/dL (65-110); Potassium 4.5 mmol/L (3.4-5.0); Sodium 138 mmol/L (137-145)
[2025-05-12 14:36] LABS: Add Urine Microscopic? NO; Appearance Urine Clear (Clear); Glucose Urine UA 2+ mg/dL (Negative); Leukocyte Esterase Ur Negative LEU/UL (Negative); Nitrate Urine Negative (Negative); Specific Grav Ur 1.012 (1.001-1.035)
[2025-05-12 20:40] LABS: Hemoglobin A1C 5.1 % (<5.7)
== END 2025-05-12 12:03 | disposition home or self-care (01) ==
LOC: ANHSURGERY 12:06
PROVIDERS: PCP Student in an Organized Health Care Education/Training Program; Visit Provider Neurological Surgery
DX: Z01.818 Encounter for other preprocedural examination (principal); R94.31 Abnormal electrocardiogram [ECG] [EKG]; M48.07 Spinal stenosis, lumbosacral region; I10 Essential (primary) hypertension
CPT/HCPCS: 36415; 80048; 81003; 83036; 85027; 85610; 85730; 93005

== ENCOUNTER 2025-05-27 00:44 | Day surgery (SDC) | payer MEDICARE, SELFPAY ==
--- OUTSIDE RECORDS SUMMARY | 2000-05-15 07:45 | XMS_ITS | Continuity of Care Document ---
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 [address] , [address], [place], [address], [place]. tel:[phone] Family History Family Member Type Diagnosis Age At Onset No Information Payers Payer name Insurance type Covered constitution party ID Authoriza tisantos(s) [employer] SOI CI [id number] Social History Type Description Quantity Date Captured Comments Sex Female Smoking Status No Information Chief Complaint And Reason For Visit No Information Reason For Referral Reason For Referral No Information History Of Present Illness Encounter Date Complaint History Of Prese nt Illness No Information Functional Status Date Functional Assessmen t No Information Instructions Date Instruction Additional Infor mation No Information Assessments Type Assessment Date No Information Patient Care Teams Name Effective Dates (start - stop) Status Members No Information
--- OUTSIDE RECORDS SUMMARY | 2023-09-06 02:30 | XMS_ITS | Continuity of Care Document ---
Author Organization [facility] Address [address] [place] [address] [place] [id number] Phone Care Team Providers Care Emergency Room Technician Name Role Phone Sampson PT,MPT,ATC, Trever Unavailable Unavai lable Procedures Procedure Date Therapeutic Activities Neuromuscular Re-Ed Therapeutic Activities Neuromuscular Re-Ed Therapeutic Activities Neuromuscular Re-Ed Therapeutic Activities Neuromuscular Re-Ed Therapeutic Activities Neuromuscular Re-Ed Therapeutic Activities Neuromuscular Re-Ed Therapeutic Activities Neuromuscular Re-Ed Therapeutic Activities Neuromuscular Re-Ed Therapeutic Activities Neuromuscular Re-Ed Manual Therapy Therapeutic Activities Neuromuscular Re-Ed Therapeutic Activities Neuromuscular Re-Ed Therapeutic Activities Neuromuscular Re-Ed Therapeutic Activities Neuromuscular Re-Ed Therapeutic Activities Neuromuscular Re-Ed Therapeutic Activities Neuromuscular Re-Ed Therapeutic Activities Neuromuscular Re-Ed Therapeutic Activities Neuromuscular Re-Ed Therapeutic Activities Neuromuscular Re-Ed Therapeutic Activities Manual Therapy Therapeutic Activities Manual Therapy Therapeutic Activities Hot or Cold Pack Therapeutic Activities Neuromuscular Re-Ed Hot or Cold Pack Therapeutic Activities Neuromuscular Re-Ed Hot or Cold Pack Doc neg elder mal no plan PRES/ABSN URINE INCON ASSESS PT Evaluation High Complexity Therapeutic Activities Neuromuscular Re-Ed Advance Directives Directive Yes / No Effective Date File Name No Information Encounters Encounter Description Practice Location Reason(s) For Visit Diagnoses Date Provider Providers Copied on Encounter [facility] [address], [id number], tel:[phone] [place] No Information 3 [place], [place], [place]. Referring Provider: Rob Killian, [facility] [address] [place] [address], [address]. tel:[phone] [place] [address] [place], [place] [address] [address], [place], [place], [id number], tel:[phone] [place] No Information 3 [place], [place], [place]. Referring Provider: Rob Killian, [facility] [address] [place] [address] [address], [place], [address]. tel:[phone], [place], [id number], tel:[phone] [place] [facility] [place] [place] Referring Provider: Rob Killian, [facility] [address] [place] [address] [address], [place], [address]. tel:[phone] [facility] [address], [place], [place], [id number], [place] tel:[phone] [place] No Information Aug-0 3 Adrián Perera. , [place], [place]. Referring Provider: Rob Killian, [facility] [address] [place] [address] [address], [place], [facility]. tel:[phone] [facility] [address], [place], [place], [id number], [place] tel:[phone] [place] No Information Jul-2 3 Adrián Perera. , [place], [place]. Referring Provider: Rob Killian, [facility] [address] [place] [address] [address], [place], [facility] [place]. tel:[phone] [facility] [address], [place], [place], [id number], [place] tel:[phone] [place] No Information Jul-2 3 Adrián Perera. , [place], [place]. Referring Provider: Rob Killian, [facility] [address] [place] [address] [address], [place], [facility]. tel:[phone] [facility] [address], [place], [place], [address], [place] tel:[phone] [place] No Information Jul-2 3 Adrián Perera. , [place], [place]. Referring Provider: Rob Killian, [facility] [address] [place] [address] [address], [place], [facility]. tel:[phone] [facility] [address], [place], [place], [id number], [place] tel:[phone] [place] No Information Jul-2 3 Adrián Perera. [place], [place], [place]. Referring Provider: Rob Killian, [facility] [address] [place] [address] [address], [place], [facility]. tel:[phone] [facility] [address] [address], [place], [place], [id number], [place] tel:[phone] [place] No Information 3 Munira Alas . Referring Provider: Rob Killian, [facility] [address] [place] [address] [address], [place], [facility]. tel:[phone] [facility] [address], [place], [place], [id number], [place] tel:[phone] [place] No Information 3 Adrián Horan , [place], [place]. Referring Provider: Rob Killian, [facility] [address] [place] [address] [address], [place], [facility]. tel:[phone] [facility] [address], [place], [id number], [place] tel:[phone] [place] No Information 3 Adrián Horan , [place], [place]. Referring Provider: Rob Killian, [facility] [address] [place] [address] [address], [place], [facility]. tel:[phone] [facility] [address], [place], [place], [id number], [place] tel:[phone] [place] No Information 3 Adrián Horan , [place], [place]. Referring Provider: Rob Killian, [facility] [address] [place] [address] [address], [place], [facility]. tel:[phone] [facility] [address], [place], [place], [id number], [place] tel:[phone] [place] No Information 3 Adrián Horan , [place], [place]. Referring Provider: Rob Killian, [facility] [address] [place] [address] [address], [place], [facility]. tel:[phone] [facility] [address], [place], [place], [id number], [place] tel:[phone] [place] No Information Oct-3 0- 3 Sampson Trever. , [place], [place]. Referring Provider: Rob Killian, [facility] [address] [place] [address] [address], [place], [facility]. tel:[phone] [facility] [address], [place], [place], [id number], [place] tel:[phone] [place] No Information Oct-2 3 Sampson Trever. , [place], [place]. Referring Provider: Rob Killian, [facility] [address] [place] [address] [address], [place], [facility]. tel:[phone], [place], [place], [id number], [place] tel:[phone] [place] No Information Oct-2 3 Adrián Perera. , [place], [place]. Referring Provider: Rob Killian, [facility] [address] [place] [address] [address], [place], [facility]. tel:[phone] [facility] [address], [place], [place], [id number], [place] tel:[phone] [place] No Information Oct-2 3 Sampson Trever. [place], [place]. Referring Provider: Rob Killian, [facility] [address] [place] [address] [address], [place], [facility]. tel:[phone] [facility] [address], [place], [place], [id number], [place] tel:[phone] [place] No Information Oct-2 0 3 Adrián Perera. , [place], [place]. Referring Provider: Rob Killian, [facility] [address] [place] [address] [address], [place], [facility]. tel:[phone] [facility] [address], [place], [place], [id number], [place] tel:[phone] [place] No Information Jun-1 3 Adrián Horan , [place]. Referring Provider: Rob Killian, [facility] [address] [place] [address] [address], [place], [facility]. tel:[phone] [facility] [address], [place], [place], [id number], [place] tel:[phone] [place] No Information 3 Nathan Mcgovern. . Referring Provider: Rob Killian, [facility] [address] [place] [address] [address], [place], [facility]. tel:[phone], [place], [place], [id number], [place] tel:[phone] [place] No Information 1 3 Adrián Horan , [place], [place]. Referring Provider: Rob Killian, [facility] [address] [place] [address] [address], [place], [facility]. tel:[phone] [facility] [address], [place], [place], [id number], [place] tel:[phone] [place] No Information 3 Adrián Horan , [place]. Referring Provider: Rob Killian, [facility] [address] [place] [address] [address], [place], [facility]. tel:[phone] [facility] [address], [place], [place], [id number], [place] tel:[phone] [place] No Information 0 3 Adrián Horan [place], [place]. Referring Provider: Rob Killian, [facility] [address] [place] [address] [address], [place], [facility]. tel:[phone] [facility] [address], [place], [place], [id number], [place] tel:[phone] [place] No Information Oct-0 3 Adrián Horan , [place], [place]. Referring Provider: Rob Killian, [facility] [address], [place], [address]. tel:[phone] Family History Family Member Type Diagnosis Age At Onset No Information Payers Payer name Insurance type Covered green party ID Authormary beth foss(s) [employer] Medicare Replacement CI [id number] Social History Type Description Quantity Date Captured Comments Sex Female Smoking Status No Information Chief Complaint And Reason For Visit No Information Reason For Referral Reason For Referral No Information History Of Present Illness Encounter Date Complaint History Of Prese nt Illness No Information Functional Status Date Functional Assessmen t No Information Instructions Date Instruction Additional Infor mation Giving encouragement to exercise Related to Overweight Giving encouragement to exercise Related to Overweight Assessments Type Assessment Date No Information Patient Care Teams Name Effective Dates (start - stop) Status Members No Information
[2025-05-12 12:28] VITALS: BP 209/61; PULSE 56; RESP 16; TEMP 36.6; O2SAT 97; BMI 31.8
--- NOTE | 2025-05-12 12:56 | PC.NURSE ---
Report to the Outpatient Waiting Room, entrance under the green pavilion located off [facility], at time ___9:30AM__ on date ___05/27/25___. Planned Procedure Time: __11:30AM____.? Time changes happen often and if your time is changed the preop area will call you the afternoon before. - You and your visitor will be asked to self-screen and do not enter if you have any COVID symptoms. Please call surgeon if you need to reschedule. - A mask is optional within the hospital at this time. Patients may have clear liquids (water, carbonated beverages, clear teas, apple juice) until 3 hours prior to surgery (8:30AM) with a maximum of 20 ounces. - No food from midnight until time of surgery and no smoking, or chewing tobacco (or any form of nicotine). No chewing gum, candy or mints. Take only the following medications with a SIP of water on the morning of surgery: ____HYDRALAZINE, NEBIVOLOL, NUCYNTA MAY TAKE HYDROCODONE OR USE ALBUTEROL INHALER NEEDED DO NOT STOP ANY OF YOUR OTHER PRESCRIPTION MEDICATIONS PRIOR TO SURGERY EXCEPT THE FOLLOWING Hold all vitamins and supplements for 3 days per anesthesiologist.- LAST DOSE 05/23/25 Medications to discontinue per physician HOLD ASPIRIN & NSAID 7 DAYS PRE-OP PER DR CHAUDHARI Date to take last dose 05/19/25 Please no make-up, nail tamazight, hairspray, perfume, deodorant, or body powder the day of surgery.? No jewelry (including any body piercings) or valuables the day of surgery, leave them at home.? Please take a shower or bath the night before, or the morning of, surgery with an antibacterial soap.? Wear comfortable, loose fitting clothing.? - Jewelry must be removed prior to entering the operating room.? Rings and piercings that are not removed may be cut off. - The hospital will not accept responsibility for valuables.? - Please leave all valuables, including medications, at home the day of surgery. If you are going home after surgery, a licensed diesel truck driver must drive you home.? - NO public transportation without another adult if you receive anesthesia. - We recommend that an adult stay with you for 24 hours following discharge. - We also recommend that you do not drive, make important decision, drink alcoholic beverages, or take any drugs that were not prescribed by your health care provider for at least 24 hours after your discharge time. Follow any additional instructions given to you from your surgeon. Telephone instructions given to ___PATIENT & HUSBAND and asked if any additional questions and then verbalized understanding. Patient advised to call surgeon office or pre surgery nurse liaison [phone] if any additional questions.
[2025-05-27] VITALS (13 sets, daily range): BP systolic 145–203; BP diastolic 40–67; PULSE 58–78; RESP 10–18; TEMP 36.4–36.7; O2SAT 96–100
--- NOTE | ~2025-05-27 | XR_ITS ---
EXAM: XR fluoroscopy no charge - 05/27/2025 12:00 CDT History: 85 years old Female with PLACEMENT OF DORSAL COLUMN STIMULATOR LEAD AND GENERATOR Fluoroscopy time: 11.2 seconds FINDINGS/ IMPRESSION: Multiple fluoroscopic images of thoracolumbar spine. Reviewed, dictated and finalized at location N.
--- OUTSIDE RECORDS SUMMARY | 2025-05-27 00:46 | XMS_ITS | Clinical Summary ---
Author Organization [facility] Address [address] [place] [address] Phone Care Team Providers Care Hydroelectric Production Manager Name Role Phone Jes Zaragoza MD Primary Care Provider [phone]- [phone] Allergies Active Allergy Reactions Criticality Noted Date [...] 2025 Insurance [employer] MEDICARE Care Teams Hydroelectric Production Manager Relationship Specialty Start Date End Date Jes Zaragoza MD [address] [place] [phone] PCP - General Family Medicine 06/15/20
--- OUTSIDE RECORDS SUMMARY | 2025-05-27 00:46 | XMS_ITS | Clinical Summary ---
Author Organization [facility] [place] [address] Address [address] [place] [address] Care Team Providers Care Cook Frozen Dessert Name Role Phone Jes Zaragoza DO Primary [...] Lasix Assessment & Plan (08/10/2023 2:50 PM SALES AGENT FOOD VENDING SERVICE): Impression: Chronic and stable. Plan: Continue lisinopril [...] duplex. Assessment & Plan (08/10/2023 2:52 PM SALES AGENT FOOD VENDING SERVICE): Impression: Stable moderate bilateral carotid stenosis and [...] on file Legal Sex Female 1:45 PM SALES AGENT FOOD VENDING SERVICE Gender Identity Not on file Sexual Orientation [...] - Td or Tdap) 06/28/2027 06/28/2017 Insurance [facility] MEDICARE ADVANTAGE [facility] MEDICARE [facility] Care Teams Cook Frozen Dessert Relationship Specialty Start Date End Date Jes Zaragoza DO [address] [place] [id number] PCP - General Family Medicine 06/23/20
--- NOTE | 2025-05-27 07:26 | PM.IMHP ---
H&P: [facility] History of Present Illness Date/Time: 05/27/25 07:26 Chief Complaint: Back and leg pain Narrative: Shania is here today for placement of dorsal column stimulator lead and generator after successful trial. She is a 84-year-old female with a past medical history significant for 2 lumbar surgeries. The 1st was done in 2001 and was a laminectomy in the lumbar spine. Second was in El 2-5 posterolateral instrumented fusion. Apparently that surgery was complicated in the postoperative period by significant pulmonary embolus that put her in the ICU for a while. It was planned to be an anterior operation as well, likely for interbody devices at the operated levels but this was not done because of the pulmonary embolus complication. She did well for a few years but then dwindled from the standpoint of her back comfort and function. Over the years she has undergone injections and radiofrequency ablation finally being treated by Dr. Kahn. currently she has progressive pain especially over the last year in her low back radiating into her left lower extremity all the way down to the foot that makes it difficult for her to make transfers or ambulate effectively. It is severe on a daily basis and limiting. She uses an assistive device. She cannot walk very far, not even across her house, without the assistive device. She spends most of her time sitting. She does not report specific muscle group weakness or dermatomal numbness but generalized weakness of the bilateral lower extremities. She does not report new bowel or bladder difficulty related to this in a progressive way. she did well with her dorsal column stimulator trial getting about 60% relief, making her more functional and mobile. She is interested in having it permanently implanted. Review of Systems Review of Systems: All systems reviewed & are unremarkable except as noted in HPI and below Denies chills, Denies fever, Denies weight gain and Denies weight loss Eyes Denies change in vision and Denies diplopia ENT Denies disequilibrium Card Denies chest pain and Denies dyspnea Resp Denies cough and Denies dyspnea GI Denies abdominal pain, Denies change in bowel habits, Denies fecal incontinence and Denies vomiting Denies hematuria, Denies oliguria, Denies difficulty urinating, Denies dysuria, Denies urinary frequency, Denies urinary hesitancy, Denies urinary incontinence and Denies urinary urgency Musc Reports as per HPI Skin/ Breast Reports system reviewed and no additional complaints, except as documented Neuro Reports as per HPI Psych Reports no additional complaints, Denies depression and Denies hopelessness Endo Reports no additional complaints and Denies polyuria Derik/ Lymph Reports no additional complaints Aller/ Immun Reports no additional complaints PMFSH Past Medical History Medical History Overactive bladder Chronic UTI Bilateral lower extremity edema CKD (chronic kidney disease) Leg edema, right Right knee pain Screening mammogram, encounter for Venous insufficiency Resistant hypertension Chronic back pain IFG (impaired fasting glucose) Diverticulitis Essential hypertension RLS (restless legs syndrome) Surgical History Surgical History Status post total right knee replacement 05/30/23 History of bladder suspension procedure H/O rectal polypectomy several H/O foot surgery bilat Total knee replacement status left H/O lateral meniscus repair of right knee History of back surgery titanium screws in her back in 2001 and 2003 H/O: hysterectomy Hx of cholecystectomy Hx of appendectomy Family History Family History Mother Hypertension Cerebrovascular accident Family history of diabetes mellitus in first degree relative Father Hypertension Family history of diabetes mellitus in first degree relative Family history of congestive heart failure Sibling Hypertension Asthma Family history of diabetes mellitus in first degree relative Social History Social History Social History: Caffeine- coffee/tea she is she lives with her who is the durable power immigration attorney for healthcare. The patient desires to be a full code. 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 She is a lifelong nonsmoker. No alcohol or illicit drugs. Smoking status: Never smoker Second hand tobacco smoke exposure: No Alcohol intake: never Drinks per week: 2 Alcohol use details: social drinker Substance use: never Substance use type: does not use Do You Feel Safe in your Home?: Yes Lack of Transportation: No Lack of Food: Never True Current Housing: I Have Housing Concerned About Future Housing: No Difficulty Paying Gas/Electric Bills: No Difficulty Paying for Meds: No Currently Unemployed: No Education: High School Diploma/GED Difficulty w/ Childcare or Family Care: No Living arrangements: with family Additional living arrangements comments: [facility] Occupation/Education: retired Gender identity (if verbalized by the patient): Female Spiritual care concerns: No Agree to blood products: Yes Meds Home Medications and Allergies Home Medications ?Medication ?Instructions ?Recorded ?Confirmed ?Type cholecalciferol (vitamin D3) 50 2,000 unit PO DAILY 09/10/19 05/19/25 History mcg (2,000 unit) tablet docusate sodium 100 mg capsule 300 mg PO HS 01/04/20 05/19/25 History (Stool Softener) tapentadol 100 mg tablet,extended 100 mg PO BID 03/11/22 05/19/25 History release,12 hr (Nucynta ER) albuterol sulfate 90 mcg/actuation 2 puff inhalation Q4H PRN 01/18/23 05/19/25 Rx aerosol inhaler (Ventolin HFA) shortness of breath or wheezing #6.7 grams vitamins A,C,R-wiuv-xdeihl 4,296 1 cap PO DAILY 05/16/23 05/19/25 History mcg-226 mg-90 mg capsule (PreserVision AREDS) nebivolol 10 mg tablet See Rx Instructions .Route 09/09/24 05/19/25 Rx .COMPLEX #90 tabs scopolamine base 1 mg over 3 days 1 patch transdermal Q3D PRN travel 09/09/24 05/19/25 Rx transdermal patch sickness #4 ea oxybutynin chloride 5 mg See Rx Instructions .Route 10/28/24 05/19/25 Rx tablet,extended release 24 hr .COMPLEX #90 tabs famotidine 40 mg tablet See Rx Instructions .Route 12/16/24 05/19/25 Rx .COMPLEX #180 tabs spironolactone 25 mg tablet See Rx Instructions .Route 01/14/25 05/19/25 Rx .COMPLEX #90 tabs doxycycline hyclate 100 mg capsule 100 mg PO BID PRN Cellulitis in 02/19/25 05/19/25 History legs hydralazine 10 mg tablet 10 mg PO TID #90 tabs 02/19/25 05/19/25 Rx ropinirole 4 mg tablet,extended See Rx Instructions .Route 02/25/25 05/19/25 Rx release 24 hr .COMPLEX #180 tabs Farxiga 10 mg tablet 10 mg PO DAILY #90 tabs 03/04/25 05/19/25 Rx (dapagliflozin propanediol) hydrocodone 7.5 mg-acetaminophen 1 tablet PO Q12H PRN pain 03/10/25 05/19/25 History 325 mg tablet naloxegol 25 mg tablet (Movantik) 25 mg PO DAILY PRN constipation 03/10/25 05/19/25 History lisinopril 30 mg tablet See Rx Instructions .Route 05/08/25 05/19/25 Rx .COMPLEX #90 tabs aspirin 81 mg tablet,delayed 81 mg PO DAILY 05/12/25 05/19/25 History release (Adult Low Dose Aspirin) furosemide 40 mg tablet 20 mg PO BID 05/12/25 05/19/25 History triamcinolone acetonide 0.1 % See Rx Instructions .Route .COMPLEX 05/12/25 05/19/25 History topical cream clindamycin HCl 300 mg capsule 300 mg PO ONCE #2 caps 05/23/25 Rx Allergies Allergy/AdvReac Type Severity Reaction Status Date / Time Penicillins Allergy Intermediate Hives Verified 05/19/25 14:51 Sulfa (Sulfonamide AdvReac Intermediate Other Verified 05/19/25 14:51 Antibiotics) Exam Narrative: General: cooperative, no acute distress, well developed, alert and awake Orientation/Consciousness: oriented to person, oriented to place and oriented to time Constitutional Limitations: no limitations Other: The patient is a normally developed, normal appearing male sitting on the examination table in no acute distress. He is awake, alert, and oriented x3 with good fund of knowledge, recall of events, and fluent speech. [facility] Head: normocephalic and atraumatic Ears: external ears normal Face/Nose/Sinus: Normal external nose present Eyes Eyelids: eyelids normal Pupils: Yes Pupils normal by confrontation EOM: EOMs intact bilaterally Neck General: Yes no meningeal signs, Yes supple and Yes no JVD Resp Effort/Inspection: normal respiratory effort and able to speak in complete sentences Cardio Rate: Yes regular rate GI Inspection: No abdominal distension Musc Other: Examination of the back reveals no tenderness. Range of motion of the back is full without pain in forward flexion, extension, and lateral rotation to both sides. Straight leg raise is negative bilaterally. Raoul?s test is negative bilaterally. Skin General: normal color Neuro General: Yes oriented to person, Yes oriented to place, Yes oriented to time, Yes normal cognition and Yes no meningeal signs Cranial Nerves: Yes CN's II-XII intact bilaterally Other: Motor: Strength is normal, 5/5, throughout all muscle groups of the bilateral upper and lower extremities to direct confrontation. Sensory: Sensation is intact to light touch throughout the upper and lower extremities bilaterally. Reflexes: Deep tendon reflexes 2+ equal and symmetric at the knees and ankles bilaterally, 3+ at the biceps, triceps, and brachioradialis bilaterally. There is positive ankle clonus on the right, no ankle clonus on the left. Solis's sign is negative bilaterally. Gait: Gait, station, and transfers are independent and steady for short periods of time and over short distances. Psych Appearance: grossly normal Mental status: Yes mental status grossly normal Mood: congruent mood Affect: Yes normal affect Speech/Movement: Normal speech and movement present Attitude: Yes cooperative Thought Content: Normal thought content present Assessment and Plan Assessment and plan (1) Chronic back pain: Qualifiers: Back pain location: low back pain Back pain laterality: unspecified Sciatica presence: unspecified whether sciatica present Qualified Code(s): M54.5 - Low back pain; G89.29 - Other chronic pain Code(s): M54.9 - Dorsalgia, unspecified; G89.29 - Other chronic pain Status: Acute Plan Shania did well with the dorsal column stimulator trial and I recommended her permanent implantation. I described to her that operation, its risks, potential benefits, the operative and postoperative course in detail and answered all her questions personally. We discussed risks including but not limited to permanent neurologic deficit related injury of the spinal cord or nerve roots, need for reoperation secondary to infection, bleeding, CSF leak, adjacent level disease, recurrent residual pathology or instability, malposition migration of the hardware, failure of the procedure to relieve her pain or symptoms, persistent pain, medical complications related anesthesia or surgery, sitter. We specifically discussed the potential complications of migration of the lead requiring revision, infection of the device requiring its removal with probable later reimplantation and bleeding into the epidural space a potentially resulting in severe and permanent neurologic deficit and the need for further surgery. She indicates understanding and elects to proceed with that operation.
--- NOTE | 2025-05-27 07:28 | WPDHPUPDATE1 ---
History and Physical Update Update Date/Time: 05/27/25 07:28 History and Physical has been reviewed, including an updated exam of the patient. There are NO changes in the patient's condition. Risks, benefits, and alternatives have been discussed and questions answered. Patient agrees to proceed with procedure.
--- NOTE | 2025-05-27 10:30 | WPDANESEPPF ---
Anes - Initial Pre Proc Eval Procedure: Operation Date: 05/27/25 09:30 Proposed Procedures p Placement of Dorsal Column Stimulator Lead and Generator - Triston Coello MD Date/Time: 05/27/25 10:30 Surgeon: Triston Coello MD Pre Op Diagnosis: Chr Back and Leg Pain Patient Data Age: 85 Gender: F Height: 1.6 m Weight: 80.5 kg Last Vital Signs Temp 36.6 C 05/27/25 08:00 Pulse 58 L 05/27/25 08:00 Resp 16 05/27/25 08:00 BP 188/57 H 05/27/25 08:00 Pulse Ox 100 05/27/25 08:00 O2 Del Method Room Air 05/27/25 08:00 Allergies Allergy/AdvReac Type Severity Reaction Status Date / Time Penicillins Allergy Intermediate Hives Verified 05/27/25 08:17 Sulfa (Sulfonamide AdvReac Intermediate Other Verified 05/27/25 08:17 Antibiotics) Home Medications ?Medication ?Instructions ?Recorded ?Confirmed ?Type cholecalciferol (vitamin D3) 50 2,000 unit PO DAILY 09/10/19 05/27/25 History mcg (2,000 unit) tablet docusate sodium 100 mg capsule 300 mg PO HS 01/04/20 05/19/25 History (Stool Softener) tapentadol 100 mg tablet,extended 100 mg PO BID 03/11/22 05/27/25 History release,12 hr (Nucynta ER) albuterol sulfate 90 mcg/actuation 2 puff inhalation Q4H PRN 01/18/23 05/19/25 Rx aerosol inhaler (Ventolin HFA) shortness of breath or wheezing #6.7 grams vitamins A,C,T-rmqv-thmuhz 4,296 1 cap PO DAILY 05/16/23 05/27/25 History mcg-226 mg-90 mg capsule (PreserVision AREDS) nebivolol 10 mg tablet See Rx Instructions .Route 09/09/24 05/27/25 Rx .COMPLEX #90 tabs scopolamine base 1 mg over 3 days 1 patch transdermal Q3D PRN travel 09/09/24 05/19/25 Rx transdermal patch sickness #4 ea oxybutynin chloride 5 mg See Rx Instructions .Route 10/28/24 05/19/25 Rx tablet,extended release 24 hr .COMPLEX #90 tabs famotidine 40 mg tablet See Rx Instructions .Route 12/16/24 05/19/25 Rx .COMPLEX #180 tabs spironolactone 25 mg tablet See Rx Instructions .Route 01/14/25 05/27/25 Rx .COMPLEX #90 tabs doxycycline hyclate 100 mg capsule 100 mg PO BID PRN Cellulitis in 02/19/25 05/27/25 History legs hydralazine 10 mg tablet 10 mg PO TID #90 tabs 02/19/25 05/27/25 Rx ropinirole 4 mg tablet,extended See Rx Instructions .Route 02/25/25 05/19/25 Rx release 24 hr .COMPLEX #180 tabs Farxiga 10 mg tablet 10 mg PO DAILY #90 tabs 03/04/25 05/19/25 Rx (dapagliflozin propanediol) hydrocodone 7.5 mg-acetaminophen 1 tablet PO Q12H PRN pain 03/10/25 05/19/25 History 325 mg tablet naloxegol 25 mg tablet (Movantik) 25 mg PO DAILY PRN constipation 03/10/25 05/19/25 History lisinopril 30 mg tablet See Rx Instructions .Route 05/08/25 05/27/25 Rx .COMPLEX #90 tabs aspirin 81 mg tablet,delayed 81 mg PO DAILY 05/12/25 05/27/25 History release (Adult Low Dose Aspirin) furosemide 40 mg tablet 20 mg PO BID 05/12/25 05/27/25 History triamcinolone acetonide 0.1 % See Rx Instructions .Route .COMPLEX 05/12/25 05/19/25 History topical cream clindamycin HCl 300 mg capsule 300 mg PO ONCE #2 caps 05/23/25 Rx Patient hx anesthesia problems: none Family hx anesthesia problems: none Results Review: All pre-operative results and documents have been reviewed as part of the pre-operative evaluation. [facility] Past Medical History Medical History Overactive bladder Chronic UTI Bilateral lower extremity edema CKD (chronic kidney disease) Leg edema, right Right knee pain Screening mammogram, encounter for Venous insufficiency Resistant hypertension Chronic back pain IFG (impaired fasting glucose) Diverticulitis Essential hypertension RLS (restless legs syndrome) Surgical History Surgical History Status post total right knee replacement 05/30/23 History of bladder suspension procedure H/O rectal polypectomy several H/O foot surgery bilat Total knee replacement status left H/O lateral meniscus repair of right knee History of back surgery titanium screws in her back in 2001 and 2003 H/O: hysterectomy Hx of cholecystectomy Hx of appendectomy Family History Family History Mother Hypertension Cerebrovascular accident Family history of diabetes mellitus in first degree relative Father Hypertension Family history of diabetes mellitus in first degree relative Family history of congestive heart failure Sibling Hypertension Asthma Family history of diabetes mellitus in first degree relative Social History Social History Social History: Caffeine- coffee/tea she is she lives with her who is the durable power litigation attorney for healthcare. The patient desires to be a full code. 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 She is a lifelong nonsmoker. No alcohol or illicit drugs. Smoking status: Never smoker Second hand tobacco smoke exposure: No Alcohol intake: never Drinks per week: 2 Alcohol use details: social drinker Substance use: never Substance use type: does not use Do You Feel Safe in your Home?: Yes Lack of Transportation: No Lack of Food: Never True Current Housing: I Have Housing Concerned About Future Housing: No Difficulty Paying Gas/Electric Bills: No Difficulty Paying for Meds: No Currently Unemployed: No Education: High School Diploma/GED Difficulty w/ Childcare or Family Care: No Living arrangements: with family Additional living arrangements comments: [facility] Occupation/Education: retired Gender identity (if verbalized by the patient): Female Spiritual care concerns: No Agree to blood products: Yes Anes - Eval Final PreProcedure Day of Procedure 05/27/25 10:30 Patient weight: obese Heart: regular rate and rhythm Lungs: decreased breath sounds Airway: Mallampati scale class III Neurological: alert and oriented Last oral intake: >/= 8 hours ASA classification: IV Emergent: no Anesthetic plan: proceed Anesthesia type and monitoring: general ETT and standard monitoring Results Review: All pre-operative results and documents have been reviewed as part of the pre-operative evaluation. Informed Consent: The patient's anesthetic plan and its attendant risks and benefits were discussed with the patient/family/POA. Questions were solicited and answers provided to the satisfaction of the patient/family/POA.
--- NOTE | 2025-05-27 10:30 | W.PM.PROC2 ---
Procedure Note - Detailed Date of Procedure 05/27/25 Pre-op Diagnosis Chr Back and Leg Pain Post-op Diagnosis Same Surgeon Triston Coello MD
[2025-05-27] MEDS: ceFAZolin 2 GM in SODIUM CHLORIDE 0.9% IV 50 ML 100 ML IVPB (10:44)
[2025-05-27] MEDS: LIDO 1%/EPINEPHRINE 1:100,000 20 ML VIAL 30 ML INFILTRATE (11:18)
[2025-05-27] MEDS: VANCOMYCIN HCL 1,000 MG VIAL 1000 MG TOPICAL (11:19)
[2025-05-27] MEDS: LACTATED RINGERS 1,000 ML 30 ML IV CONT (12:21)
--- NOTE | 2025-05-27 12:25 | P.OP_ITS ---
Procedure Note - Detailed Date of Procedure 05/27/25 Pre-op Diagnosis Chr Back and Leg Pain Post-op Diagnosis Same Procedure Performed Placement of dorsal column stimulator lead and generator Surgeon Triston Coello MD Anesthesia General Description of Procedure The patient was brought to the operating room in the supine position, was sedated, intubated placed under general anesthesia in routine fashion. She was then turned to the prone position on a Agustín frame. There operation on her back was examined, marked for incision, prepped and draped in routine sterile fashion. Incision was marked in the thoracic spine longitudinally based on the T9 pedicles and transversely in the left flank. These areas were injected with 0.5% lidocaine with [id number] epinephrine. Intravenous antibiotics given prior to incision. Incision was made in both locations with a 10 blade scalpel. Pocket was created 1 cm deep in the tissue using curved Anderson scissors and toothed forceps at the flank incision. At the thoracic incision a subperiosteal dissection of the muscle soft tissue away from spinous processes and lamina were performed with a subperiosteal elevator and Bovie cautery. A verifying x-rays obtained to verify the level of operation. At T8-9 and T7-8 laminectomies were performed using a Leksell rongeur, Kerrison punches and curved curettes until a short but white area the dura was uncovered. The epidural space was cannulated with a dental instrument, a curved curette and a lead trial the lead was placed into the dorsal epidural space until it was confirmed we behind the T7 and T8 vertebral bodies in the midline. An anchor was attached with the wires which was attached to the superior spinous process using a 3-0 Prolene suture. Tension relief loops were placed in the each of the wires which were then buried the flank incision. Here they were inserted into the generator site and secured the using a small screwdriver for that purpose. Impedance testing was carried out confirm good connectivity which was confirmed. All the incisions were copiously irrigated with bacitracin irri gation. Generator was then placed in the pocket with excess wire code up underneath that and with vancomycin impregnated pellets around the device. The wound was then closed in layered fashion with 2-0 Vicryl interrupted sutures in the thoracic fascia and Keely's layer. Both incisions were closed with 3-0 Vicryl buried interrupted sutures in the dermis and a running 4-0 Monocryl subcuticular stitch in the skin was dressed with Dermabond. Patient was allowed to wake up in the operating room and was taken to the recovery room in stable condition. There were no immediate complications of this operation. All counts reported correct in the case. Blood loss was 25 cc. The patient was neurologically at her baseline postoperatively. CPT codes: 59500, 00020 Implants Pérez dorsal column stimulator lead and generator Estimated Blood Loss 25 Complications None Condition Stable Disposition PACU [facility] Billing Surgery - Charge Forward: Surgery Billing
--- NOTE | 2025-05-27 13:52 | ADMGEN ---
This patient, Shania Walden, was admitted to Medical Room 250-01. Patient/family oriented to hospital policies and general routines including ID bracelet, bed and alarms, visiting hours, pain management, procedures, bathroom and other care routines, personal items, smoking policy, room service/diet, and visiting hours. Information on how to activate the Rapid Response Team has been discussed. Patient/Family are encouraged to report perceived risks to care and to ask questions if they do not understand what they are told or what they should do.
[2025-05-27] MEDS: HYDROcodone/acetaminophen (*CRX) 10-325 MG TABLET 1 TAB PO ×2 (17:36→21:40)
[2025-05-27] MEDS: FAMOTIDINE 20 MG TABLET 40 MG BY MOUTH (21:41)
[2025-05-28 00:15] VITALS: BP 136/44; PULSE 55; RESP 20; TEMP 36.7; O2SAT 93
[2025-05-28] MEDS: HYDROcodone/acetaminophen (*CRX) 10-325 MG TABLET 1 TAB PO ×2 (04:37→12:29)
[2025-05-28 05:42] VITALS: BP 157/49; PULSE 54; RESP 16; TEMP 36.4; O2SAT 97
--- NOTE | 2025-05-28 05:47 | PC.NURSE ---
Patient requests to hold off on administration of 0600 dose of lasix. RN instructed patient to call when she is ready to take it.
--- NOTE | 2025-05-28 07:32 | PM.IMCN ---
Assessment and Plan Assessment and plan (1) Foraminal stenosis of lumbosacral region: Code(s): M48.07 - Spinal stenosis, lumbosacral region Status: Acute Assessment and Plan: s/p Placement of dorsal column stimulator lead and generator on 05/27 Neurosurgery following pain control PT/OT (2) Status post insertion of spinal cord stimulator: Code(s): Z96.89 - Presence of other specified functional implants Status: Acute Assessment and Plan: Neurosurgery following Labs ordered pain control PT/OT (3) Resistant hypertension: Code(s): I10 - Essential (primary) hypertension Status: Acute Assessment and Plan: BP was high yesterday, appears to have stabilized continue home spironolactone, furosemide, Bystolic, lisinopril and PRN hydralazine monitor BP (4) CKD (chronic kidney disease): Qualifiers: Chronic kidney disease stage: stage 3 (moderate) Chronic kidney disease stage 3 subtype: stage 3a (GFR 45-59) Qualified Code(s): N18.31 - Chronic kidney disease, stage 3a Code(s): N18.9 - Chronic kidney disease, unspecified Status: Acute Assessment and Plan: Patient sees nephrology as outpatient labs ordered this AM and creatinine is at patients baseline prior to surgery (5) Overactive bladder: Code(s): N32.81 - Overactive bladder Status: Acute Assessment and Plan: continue oxybutynin appears stable HPI Date of Consult Consult date: 05/28/25 Requesting Physician: Triston Coello MD Primary Care Provider: Mitch Ca APRN Consult Narrative Narrative: Shania Walden is a 85 year old female with PMH of OAB, CKD, HTN, RLS and chronic back pain. Patient was admitted by Neurosurgery after undergoing a Placement of dorsal column stimulator lead and generator yesterday. Patient tolerated the procedure well and was admitted for observation. We were consulted for medical management. Labs including CBC and CMP were ordered. Results reviewed and appear stable compared to perioperative labs. Patient's blood pressures reviewed and were high yesterday evening but have since stabilized. Patient seen in her room, sitting in a chair, in no acute distress. Patient reports her pain is controlled with the current regimen ordered by the surgeon. Patient denies acute complaints. Patient asking about plan for discharge home. Review of Systems Review of Systems: All systems reviewed & are unremarkable except as noted in HPI and below PMFSH Past Medical History Medical History Overactive bladder Chronic UTI Bilateral lower extremity edema CKD (chronic kidney disease) Leg edema, right Right knee pain Screening mammogram, encounter for Venous insufficiency Resistant hypertension Chronic back pain IFG (impaired fasting glucose) Diverticulitis Essential hypertension RLS (restless legs syndrome) Surgical History Surgical History Status post total right knee replacement 05/30/23 History of bladder suspension procedure H/O rectal polypectomy several H/O foot surgery bilat Total knee replacement status left H/O lateral meniscus repair of right knee History of back surgery titanium screws in her back in 2001 and 2003 H/O: hysterectomy Hx of cholecystectomy Hx of appendectomy Family History Family History Mother Hypertension Cerebrovascular accident Family history of diabetes mellitus in first degree relative Father Hypertension Family history of diabetes mellitus in first degree relative Family history of congestive heart failure Sibling Hypertension Asthma Family history of diabetes mellitus in first degree relative Social History Social History Social History: Caffeine- coffee/tea she is she lives with her who is the durable power district attorney for healthcare. The patient desires to be a full code. 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 She is a lifelong nonsmoker. No alcohol or illicit drugs. Smoking status: Never smoker Second hand tobacco smoke exposure: No Alcohol intake: never Alcohol use details: social drinker Substance use: never Substance use type: does not use Do You Feel Safe in your Home?: Yes Lack of Transportation: No Lack of Food: Never True Current Housing: I Have Housing Concerned About Future Housing: No Difficulty Paying Gas/Electric Bills: No Difficulty Paying for Meds: No Currently Unemployed: No Education: High School Diploma/GED Difficulty w/ Childcare or Family Care: No Living arrangements: with family Additional living arrangements comments: [facility] Occupation/Education: retired Gender identity (if verbalized by the patient): Female Spiritual care concerns: No Agree to blood products: Yes Meds Home Medications and Allergies Home Medications ?Medication ?Instructions ?Recorded ?Confirmed ?Type cholecalciferol (vitamin D3) 50 2,000 unit PO DAILY 09/10/19 05/27/25 History mcg (2,000 unit) tablet docusate sodium 100 mg capsule 300 mg PO HS 01/04/20 05/19/25 History (Stool Softener) tapentadol 100 mg tablet,extended 100 mg PO BID 03/11/22 05/27/25 History release,12 hr (Nucynta ER) albuterol sulfate 90 mcg/actuation 2 puff inhalation Q4H PRN 01/18/23 05/19/25 Rx aerosol inhaler (Ventolin HFA) shortness of breath or wheezing #6.7 grams vitamins A,C,Q-dzuh-wshbgo 4,296 1 cap PO DAILY 05/16/23 05/27/25 History mcg-226 mg-90 mg capsule (PreserVision AREDS) scopolamine base 1 mg over 3 days 1 patch transdermal Q3D PRN travel 09/09/24 05/19/25 Rx transdermal patch sickness #4 ea oxybutynin chloride 5 mg See Rx Instructions .Route 10/28/24 05/19/25 Rx tablet,extended release 24 hr .COMPLEX #90 tabs famotidine 40 mg tablet See Rx Instructions .Route 12/16/24 05/19/25 Rx .COMPLEX #180 tabs spironolactone 25 mg tablet See Rx Instructions .Route 01/14/25 05/27/25 Rx .COMPLEX #90 tabs ropinirole 4 mg tablet,extended See Rx Instructions .Route 02/25/25 05/19/25 Rx release 24 hr .COMPLEX #180 tabs Farxiga 10 mg tablet 10 mg PO DAILY #90 tabs 03/04/25 05/19/25 Rx (dapagliflozin propanediol) hydrocodone 7.5 mg-acetaminophen 1 tablet PO Q12H PRN pain 03/10/25 05/19/25 History 325 mg tablet Held on 05/28/25. Instructions: Resume on 06/04/25. naloxegol 25 mg tablet (Movantik) 25 mg PO DAILY PRN constipation 03/10/25 05/19/25 History lisinopril 30 mg tablet See Rx Instructions .Route 05/08/25 05/27/25 Rx .COMPLEX #90 tabs aspirin 81 mg tablet,delayed 81 mg PO HS 05/12/25 05/27/25 History release (Adult Low Dose Aspirin) Held on 05/28/25. Instructions: Resume on 06/03/25. furosemide 40 mg tablet 20 mg PO BID 05/12/25 05/27/25 History triamcinolone acetonide 0.1 % See Rx Instructions .Route .COMPLEX 05/12/25 05/19/25 History topical cream hydralazine 10 mg tablet 10 mg PO TID PRN hypertension 05/27/25 05/27/25 History nebivolol 10 mg tablet See Rx Instructions .Route .COMPLEX 05/27/25 05/27/25 History hydrocodone 7.5 mg-acetaminophen 1 tablet PO Q6H PRN pain #28 tabs 05/28/25 Rx 325 mg tablet Allergies Allergy/AdvReac Type Severity Reaction Status Date / Time Penicillins Allergy Intermediate Hives Verified 05/27/25 08:17 Sulfa (Sulfonamide AdvReac Intermediate Other Verified 05/27/25 08:17 Antibiotics) Vital Signs Vital Signs - 24 hr 05/27/25 08:00 05/27/25 12:21 05/27/25 12:35 Temperature 98 F 98.1 F Pulse Rate 58 L 78 72 Respiratory Rate 16 10 L 12 Blood Pressure 188/57 H 160/58 H 159/55 H Pulse Oximetry 100 99 100 Oxygen Delivery Room Air Simple Face Mask Simple Face Mask Oxygen Flow Rate 6 6 05/27/25 12:50 05/27/25 13:05 05/27/25 13:20 Temperature Pulse Rate 71 78 66 Respiratory Rate 12 14 14 Blood Pressure 164/67 H 173/62 H 159/54 H Pulse Oximetry 100 97 96 Oxygen Delivery Room Air Room Air Room Air Oxygen Flow Rate 05/27/25 13:35 05/27/25 14:00 05/27/25 14:00 Temperature 97.5 F L 97.6 F Pulse Rate 64 70 Respiratory Rate 14 16 Blood Pressure 164/66 H 183/61 H Pulse Oximetry 96 98 98 Oxygen Delivery Room Air Room Air Oxygen Flow Rate 05/27/25 14:15 05/27/25 14:45 05/27/25 15:23 Temperature 97.6 F 97.7 F Pulse Rate 69 70 Respiratory Rate 17 18 Blood Pressure 192/63 H 195/58 H Pulse Oximetry 98 98 Oxygen Delivery Room Air Oxygen Flow Rate 05/27/25 15:45 09/02/25 20:45 05/27/25 21:45 Temperature 97.7 F 97.8 F Pulse Rate 72 65 Respiratory Rate 18 18 Blood Pressure 192/62 H 203/53 H Pulse Oximetry 98 97 Oxygen Delivery Room Air Oxygen Flow Rate 05/27/25 22:40 05/28/25 00:15 05/28/25 05:42 Temperature 98.0 F 97.5 F L Pulse Rate 55 L 54 L Respiratory Rate 20 16 Blood Pressure 145/40 H 136/44 L 157/49 H Pulse Oximetry 93 97 Oxygen Delivery Oxygen Flow Rate Exam Const: General: comfortable and no acute distress HENMT: Face/Nose/Sinus: Normal nares present Mouth: Yes moist mucous membranes Neck: Neck: supple Resp: Effort & Inspection: normal respiratory effort Auscultation: clear to auscultation bilaterally Cardio: Rate: regular rate Rhythm: regular rhythm GI: GI Palp: Yes Soft to palpation Auscultation: normal bowel sounds Skin: General skin exam: normal color and no rashes or lesions noted Extrem: General: edema bilateral Other: 1+ Psych: Mental Status: mental status grossly normal Affect: normal affect Results Labs 05/28/25 07:41 05/28/25 07:41 Quality VTE Prophylaxis VTE prophylaxis: mechanical ordered
[2025-05-28 07:56] LABS: Hematocrit 36.1 % (37.0-47.0); Hemoglobin 11.8 g/dL (12.0-15.0); Immature Granulocyte Percent A 0.3 % (0-0.5); Lymphocytes Absolute Auto 1.26 K/mm3 (0.9-3.2); Mean Corpuscular HGB Conc 32.7 g/dl (32-36); Mean Corpuscular Hemoglobin 33.3 pg (26-34); Mean Corpuscular Volume 102.0 fl (80-100); Nucleated Red Blood Cells Absolute Auto 0.000 K/mm3 (0.0-0.012); Nucleated Red Blood Cells Perc 0.0 % (0.0-0.2); Platelet Count Result 213 k/mm3 (150-375); Red Blood Count 3.54 M/mm3 (4.2-5.4); White Blood Count 8.6 K/mm3 (4.5-10.0)
[2025-05-28 08:14] LABS: Alanine Aminotransferase 19 U/L (6-35); Albumin Level 3.5 g/dL (3.5-5.1); Alkaline Phosphatase 95 U/L (38-126); Anion Gap 5 mmol/L (4-12); Aspartate Amino Transferase 32 U/L (14-36); Bilirubin,Total 0.6 mg/dL (0.2-1.3); Blood Urea Nitrogen 22 mg/dL (7-17); Calcium 8.8 mg/dL (8.4-10.2); Carbon Dioxide 27 mmol/L (22-30); Chloride 105 mmol/L (98-107); Estimated CRCL calculation 33 ml/min; Estimated Glomerular Filt Rate 45; Glucose 99 mg/dL (65-110); Potassium 4.0 mmol/L (3.4-5.0); Sodium 137 mmol/L (137-145); Total Protein 6.5 g/dL (6.3-8.2)
[2025-05-28 08:45] VITALS: BP 167/52; PULSE 55; RESP 16; TEMP 36.9; O2SAT 96
[2025-05-28] MEDS: oxyBUTYnin CHLORIDE XL 5 MG TAB.ER.24 BY MOUTH (08:56)
[2025-05-28] MEDS: FAMOTIDINE 20 MG TABLET 40 MG BY MOUTH (08:56)
[2025-05-28] MEDS: CHOLECALCIFEROL (VITAMIN D3) 25 MCG (1,000 UNITS) TABLET 50 MCG PO (08:56)
[2025-05-28] MEDS: OPTI-GEN TAB 1 TABLET PO (08:56)
[2025-05-28 11:43] VITALS: BP 184/56; PULSE 54; RESP 16; TEMP 36.8; O2SAT 99
[2025-05-28 11:45] VITALS: PULSE 55
[2025-05-28] MEDS: NEBIVOLOL HCL 5 MG TABLET 10 MG BY MOUTH (11:45)
[2025-05-28] MEDS: SPIRONOLACTONE 25 MG TABLET BY MOUTH (12:30)
== END 2025-05-28 14:36 | disposition home or self-care (01) ==
LOC: ANHSURGERY 07:14 → ANH2MED 13:46
PROVIDERS: Nurse Practitioner Adult Health; PCP Student in an Organized Health Care Education/Training Program; Visit Provider Neurological Surgery
PROC: (CPT 63655; principal; 2025-05-27 09:30)
DX: M54.9 Dorsalgia, unspecified (principal); M79.606 Pain in leg, unspecified; G89.29 Other chronic pain; E66.9 Obesity, unspecified; Z68.31 Body mass index [BMI] 31.0-31.9, adult; Z98.1 Arthrodesis status
CPT/HCPCS: 63655; 63685; 36415; 80053; 85025; 97116; 97161; 97165; 99199; J0690; A9270; C1713; C1778; C1820; J1100; J2003; J2004; J2371; J2405; J2704; J3373; J7120

== ENCOUNTER 2025-09-03 08:05 | Outpatient (CLI) | payer MEDICARE, SELFPAY ==
[2025-09-03 13:05] LABS: Creatine Kinase 81 U/L (30-135)
[2025-09-03 13:08] LABS: Add Urine Microscopic? YES; Appearance Urine Cloudy (Clear); Glucose Urine UA 2+ mg/dL (Negative); Leukocyte Esterase Ur 1+ LEU/UL (Negative); Nitrate Urine Negative (Negative); Non Pathogenic Casts 0-2; Specific Grav Ur 1.013 (1.001-1.035)
[2025-09-03 13:10] LABS: Hematocrit 38.5 % (37.0-47.0); Hemoglobin 12.3 g/dL (12.0-15.0); Mean Corpuscular HGB Conc 31.9 g/dl (32-36); Mean Corpuscular Hemoglobin 33.1 pg (26-34); Mean Corpuscular Volume 103.5 fl (80-100); Platelet Count Result 220 k/mm3 (150-375); Red Blood Count 3.72 M/mm3 (4.2-5.4); White Blood Count 6.4 K/mm3 (4.5-10.0)
[2025-09-03 13:41] LABS: Total Protein Urine Random 17 mg/dL; Ur Ttl Prot Creatinine Ratio 0.28 mg/mg (0-0.20)
[2025-09-03 13:46] LABS: Parathyroid Intact 56.5 pg/mL (14.5-75.2)
[2025-09-03 13:48] LABS: Albumin Level 3.9 g/dL (3.5-5.1); Anion Gap 5 mmol/L (4-12); Blood Urea Nitrogen 24 mg/dL (7-17); Calcium 9.0 mg/dL (8.4-10.2); Carbon Dioxide 27 mmol/L (22-30); Chloride 106 mmol/L (98-107); Estimated Glomerular Filt Rate 43; Glucose 77 mg/dL (65-110); Potassium 4.9 mmol/L (3.4-5.0); Sodium 138 mmol/L (137-145)
[2025-09-03 14:40] LABS: Thyroid Stimulating Hormone Reflex 2.480 uIU/mL (0.465-4.68)
[2025-09-04 09:02] LABS: Total Protein Urine Random 17 mg/dL; Ur Ttl Prot Creatinine Ratio 0.29 mg/mg (0-0.20)
[2025-09-05 12:08] LABS: ANA by IFA Rfx Titer/Pattern Positive (.); Immunoglobulin A, Qn 261 mg/dL (64-422); Immunoglobulin G, Qn 1130 mg/dL (586-1602); Immunoglobulin M, Qn 131 mg/dL (26-217)
[2025-09-05 15:09] LABS: Immunofixation (IFE), Urine Comment: (.)
[2025-09-09 20:08] LABS: Renin Activity, Plasma 0.284 ng/mL/hr (0.167-5.380)
== END 2025-09-03 08:06 | disposition home or self-care (01) ==
PROVIDERS: PCP Student in an Organized Health Care Education/Training Program; Visit Provider Internal Medicine Nephrology
DX: I12.9 Hypertensive chronic kidney disease with stage 1 through stage 4 chronic kidney disease, or unspecified chronic kidney disease (principal); N18.31 Chronic kidney disease, stage 3a; I1A.0 Resistant hypertension
CPT/HCPCS: 36415; 80069; 81001; 82088; 82550; 82570; 82784; 83970; 84156; 84244; 84443; 85027; 85652; 86038; 86160; 86162; 86334; 86335

== ENCOUNTER 2025-09-05 10:12 | Outpatient (NON) | payer MEDICARE, SELFPAY ==
[2025-09-05 19:29] LABS: Total Volume 24 Hour Urine 700 ml
[2025-09-05 19:38] LABS: Total Volume 24 Hour Urine 700 ml
[2025-09-10 23:07] LABS: Metanephrine, U,24hr 44 ug/24 hr (36-209); Metanephrine, Ur 63 ug/L (Undefined); Normetanephr.,U,24h 126 ug/24 hr (131-612)
[2025-09-11 14:08] LABS: Cortisol,F,ug/24hr,U 12 ug/24 hr (3-49); Cortisol,F,ug/L,U 17 ug/L (Undefined)
== END 2025-09-05 10:13 | disposition home or self-care (01) ==
PROVIDERS: PCP Student in an Organized Health Care Education/Training Program; Visit Provider Internal Medicine Nephrology
DX: I12.9 Hypertensive chronic kidney disease with stage 1 through stage 4 chronic kidney disease, or unspecified chronic kidney disease (principal); N18.31 Chronic kidney disease, stage 3a
CPT/HCPCS: 81050; 82530; 83835; 84300; 84540